=== PATIENT | male | born 1940 | race Hispanic/Latino ===

== ENCOUNTER 2018-02-26 14:45 | Inpatient (IN) | payer MEDICARE, OTHER ==
[2018-02-26 14:45] VITALS: BMI 40.3
--- NOTE | 2018-02-26 15:57 | RAD ---
Date of service: 02/26/2018 HISTORY: Shortness of breath COMPARISON: 07/27/2016 FINDINGS: Tracheostomy tube remains in place. LUNGS: The lungs are well inflated and clear. PLEURA: No significant pleural effusion identified, no pneumothorax apparent. CARDIOVASCULAR: Normal. OSSEOUS STRUCTURES: No significant abnormalities. VISUALIZED UPPER ABDOMEN: Normal. OTHER FINDINGS: None. IMPRESSION: No active pulmonary disease.
[2018-02-26] MEDS ORDERED: Albuterol-Ipratrop 3 mg / 0.5 (3 ml) UD IH STA (16:24)
--- NOTE | 2018-02-26 16:28 | ED PDOC ---
Arrival/HPI - General Chief Complaint: GI Problem Time Seen by Provider: 02/26/18 15:00 Historian: Patient - History of Present Illness Narrative History of Present Illness (Text): 02/26/18 16:25 Patient is a 77 yo male past medical history of vegetative state with history of PEG tube, diaz catheter, tracheostomy, presents to the Emergency Department after family noted that the patient had bloody stool 3-4 times since yesterday. Patient reportedly has had no history of vomiting or fevers. No expression of pain. No change in chronic shortness of breath. Time/Duration: Prior to Arrival Symptom Onset: Gradual Past Medical History - Infectious Disease Hx of Infectious Diseases: None - Cardiac Hx Cardiac Disorders: Yes Hx Hypertension: Yes Hx Peripheral Edema: Yes (ble +1) - Pulmonary Hx Respiratory Disorders: Yes (tracheostomy) Hx Chronic Obstructive Pulmonary Disease (COPD): Yes Hx Pneumonia: (family denies) - Neurological Hx Neurological Disorder: Yes 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)) Hx Seizures: Yes Other/Comment: non verbal/vegetative state x 4 yrs, complete paralysis - HEENT Hx HEENT Disorder: No - Renal Hx Renal Disorder: No - Endocrine/Metabolic Hx Endocrine Disorders: No Hx Diabetes Mellitus Type 2: (family denies dm) - Hematological/Oncological Hx Blood Disorders: No - Integumentary Hx Dermatological Disorder: No Other/Comment: multiple eccymotic and skin discolorations both arms - Musculoskeletal/Rheumatological Hx Falls: No - Gastrointestinal Hx Gastrointestinal Disorders: Yes (hx c dif 12/01/15) Hx Gastroesophageal Reflux: Yes HX Swallowing Problems: Yes (dysphagia has g tube) Other/Comment: chronic constipation - Genitourinary/Gynecological Hx Urinary Tract Infection: Yes - Psychiatric Hx Psychophysiologic Disorder: No Hx Substance Use: No - Surgical History Hx Coronary Stent: Yes Other/Comment: trach/peg tube - Anesthesia Hx Anesthesia Reactions: Yes Hx Malignant Hyperthermia: No - Suicidal Assessment Feels Threatened In Home Enviroment: No Family/Social History Family/Social History: Unknown Family HX Smoking Status: Never Smoked Hx Alcohol Use: No Hx Substance Use: No Hx Substance Use Treatment: No Allergies/Home Meds Allergies/Adverse Reactions: Allergies heparin Allergy (Intermediate, Verified 07/24/16 13:30) LOW PLTS shellfish derived Allergy (Verified 07/24/16 13:30) SWELLING Home Medications: Home Meds Medication Instructions Recorded Confirmed levETIRAcetam Solution [Keppra] 1,500 mg PEG BID 11/23/11 02/26/18 Ipratropium 0.02% [Atrovent] 0.5 mg IH Q4H 12/15/15 02/26/18 Lacosamide [Vimpat] 100 mg PEG BID 12/15/15 02/26/18 amLODIPine [Norvasc] 2.5 mg PEG DAILY 12/15/15 02/26/18 Lactobacillus Acidophilus 1 gm MC DAILY 02/16/16 02/26/18 [Acidophilus Lactobacillus] acetaZOLAMIDE [Diamox 250 mg Tab] 250 mg PEG DAILY 07/24/16 02/26/18 Enoxaparin [Lovenox] 40 mg SQ DAILY 07/25/16 02/26/18 Furosemide [Lasix] 40 mg PEG DAILY 07/25/16 02/26/18 Amino Acids/Protein Hydrolys 30 ml PO BID 02/26/18 02/26/18 [Prostat 15 g packet] B12 Unk Dose 02/26/18 Budesonide [Pulmicort Respules] 0.5 mg NEB BID 02/26/18 02/26/18 Cholecalciferol (Vitamin D3) 0 ml PEG 02/26/18 [Vitamin D3] Clonazepam [Klonopin] 0 mg PEG DAILY 02/26/18 02/27/18 Levalbuterol [Xopenex] 1.25 mg IH DAILY 02/26/18 02/27/18 Potassium Unk Dose 02/26/18 Review of Systems - Review of Systems Systems not reviewed;Unavailable: Altered Mental Status Constitutional: Fatigue. absent: Fevers Respiratory: SOB. absent: Cough Cardiovascular: Edema. absent: Chest Pain Gastrointestinal: Constipation, Hematochezia. absent: Abdominal Pain, Vomiting , Hematemesis Skin: absent: Rash Neurological: Other (chronic vegetatative state) Physical Exam Vital Signs Reviewed: Yes Vital Signs Temp Pulse Resp BP Pulse Ox 02/26/18 20:10 98 F 96 H 20 150/52 L 02/26/18 19:29 98.3 F 97 H 19 154/78 H 02/26/18 19:14 98.4 F 99 H 18 140/67 02/26/18 18:54 98.3 F 99 H 17 144/83 91 L 02/26/18 17:36 100 H 20 96 02/26/18 15:23 98.4 F 96 H 19 147/57 L 100 Temperature: Afebrile Respiratory Rate: Tachypneic Mental Status: Positive for: other (vegetative state chronic) - Systems Exam Head: Present: Atraumatic Mouth: Present: Dry Pharnyx: No: ERYTHEMA Nose (Internal): Present: Normal Inspection Neck: Present: Normal Range of Motion, Other (tracheostomy site is clean dry and intact). No: Meningeal Signs Respiratory/Chest: Present: Wheezes, Tachypneic. No: Respiratory Distress Cardiovascular: Present: Murmurs, Tachycardic Abdomen: Present: Distention, Feeding Tubes, Other (ecchymosis to right lower abdominal wall, no pulsatile masses). No: Tenderness Rectal: Present: Gross Blood. No: Melena Genitourinary Male: Present: Other (diza catheter, no hematuria or lesions) Lower Extremity: Present: Edema Neurological: Present: Other (patient with vegetative state) Skin: Present: Pale Psychiatric: No: Alert, Normal Insight, Normal Concentration Medical Decision Making ED Course and Treatment: 02/26/18 18:54 Patient on initial evaluation is accompanied by and then son at bedside. Exam and history obtained with present. On exam the patient is aphasic, at his baseline. He has some tracheal secretions which improved after suctioning. He initially has mild wheezing noted, felt to be at his baseline initially. Rectal exam reveals melena and heme positive stool. Hgb is low, and was compared to provided outpatient labs provided by from where Hgb was 9.5. Acute drop noted from three days ago. He is not tachycardic or hypotensive with serial exams. IV fluids ordered. Blood transfusion ordered for active bleeding, anemia. WBC elevated. Patient with PEG tube that is clean. Diaz catheter present. Initial lactate unremarkable although will order ct abdomen as patient with leukocytosis, prior history of sepsis. During ER stay patient noted to be progressively more tachypneic. ON re-exam he has worsening bronchospasm. Duonebs and iv steroids ordered. ABG ordered. Director Of Retention consulted for gi bleed, respiratory distress. ABG results reviewed with Dr. Gillette, will accept patient to ICU and follow patient's respiratory status. IV antibiotics ordered. Treatment plan reviewed extensively with patient and family, will admit to ICU. - Critical Care Critical Care Minutes: 45 minutes - Lab Interpretations Microbiology Results: Microbiology Results 02/26/18 16:00 Blood Blood Culture - Preliminary NO GROWTH AFTER 48 HOURS 02/26/18 15:30 Blood Blood Culture - Preliminary NO GROWTH AFTER 48 HOURS 02/26/18 17:20 Urine Urine Culture - Preliminary Gram Negative Saad Lab Results: 02/26/18 15:30 02/26/18 15:30 Lab Results 02/26/18 17:40: POC Glucose (mg/dL) 188 H 02/26/18 17:20: Urine Color Yellow, Urine Appearance Slight-cloudy, Urine pH 6.0 , Ur Specific [place] 1.015, Urine Protein 30 H, Urine Glucose (UA) Negative, Urine Ketones Negative, Urine Blood Large H, Urine Nitrate Negative, Urine Bilirubin Negative, Urine Urobilinogen 0.2, Ur Leukocyte Esterase Large H, Urine RBC 5 - 10, Urine WBC 5 - 10, Ur Epithelial Cells None, Urine Bacteria Mod 02/26/18 16:00: Blood Type A POSITIVE, Antibody Screen Negative, ITZEL, Poly Interpret Positive H, Crossmatch See Detail, BBK History Checked Patient has bt 02/26/18 15:30: NT-Pro-B Natriuret Pep 444 02/26/18 15:30: Sodium 140, Potassium 4.8, Chloride 93 L, Carbon Dioxide 37 H, Anion Gap 15, BUN 67 H, Creatinine 2.2 H, Est GFR ( Amer) 35, Est GFR ( Non-Af Amer) 29, Random Glucose 202 H, Calcium 7.9 L, Total Bilirubin 0.8, AST 35, ALT 24, Alkaline Phosphatase 83, Lactate Dehydrogenase 391, Total Creatine Kinase 35, Troponin I < 0.01, Total Protein 6.6, Albumin 3.5, Globulin 3.0, Albumin/Globulin Ratio 1.2 02/26/18 15:30: PT 13.3 H, INR 1.16, APTT 29.7 02/26/18 15:30: WBC 15.5 H D, RBC 2.24 L, Hgb 7.2 L, Hct 23.3 L, MCV 104.0, MCH 32.1, MCHC 30.9 L, RDW 16.3 H, Plt Count 207, MPV 11.9 H, Gran % 85.1 H, Lymph % (Auto) 6.8 L, [place] % (Auto) 7.9 H, Eos % (Auto) 0.1 L, Baso % (Auto) 0.1, Gran # 13.20 H, Lymph # (Auto) 1.1 L, [place] # (Auto) 1.2 H, Eos # (Auto) 0.0, Baso # (Auto) 0.02 - RAD Interpretation Radiology Orders: 02/26/18 15:17 CHEST PORTABLE [RAD] Stat 02/26/18 17:01 ABD & PELVIS W/O PO OR IV CONT [CT] Stat Power Generating Plant Operator: Radiologist - EKG Interpretation EKG Interpretation (Text): 02/26/18 19:00 EKG at 15:05 normal sinus rhythm with right bundle branch block, left anterior fascicular block Interpreted by ED Physician: Yes Type: 12 lead EKG - Medication Orders Current Medication Orders: Acetaminophen (Tylenol 650mg/20.3ml Solution Ud) 650 mg PO Q6H PRN PRN Reason: Pain, moderate (4-7) Acetylcysteine (Acetylcysteine 20%) 4 ml IH BIDRESP GANGA Last Admin: 03/01/18 08:21 Dose: 4 ml Albuterol/Ipratropium (Duoneb 3 Mg/0.5 Mg (3 Ml) Ud) 3 ml IH [id number] GANGA Last Admin: 03/01/18 08:21 Dose: 3 ml Albuterol/Ipratropium (Duoneb 3 Mg/0.5 Mg (3 Ml) Ud) 3 ml IH Q2H PRN PRN Reason: Shortness of Breath Amlodipine Besylate (Norvasc) 2.5 mg PEG DAILY [facility] Budesonide (Pulmicort Respules) 0.5 mg IH [id number] [facility] Last Admin: 03/01/18 08:22 Dose: 0.5 mg Doxycycline Hyclate (Doryx) 100 mg PO Q12 GANGA PRN Reason: Protocol Last Admin: 02/28/18 21:42 Dose: 100 mg Meropenem 500 mg/ Sodium (Chloride) 50 mls @ 100 mls/hr IVPB Q12 GANGA PRN Reason: Protocol Stop: 03/05/18 22:01 Last Admin: 02/28/18 22:43 Dose: 100 mls/hr eMAR Start Stop Document 02/28/18 22:43 LOPEMAR (Rec: 02/28/18 22:44 LOPEMAR [id number]) Intravenous Solution Start Date 02/28/18 Start Time 22:43 End Date 02/28/18 End time 23:20 Total Infusion Time 37 Sodium Chloride (Sodium Chloride 0.9%) 1,000 mls @ 5 mls/hr IV .Q24H GANGA Last Admin: 03/01/18 04:03 Dose: 5 mls/hr eMAR Start Stop Document 03/01/18 04:03 LOPEMAR (Rec: 03/01/18 04:04 LOPEMAR [id number]) Intravenous Solution Start Date 03/01/18 Start Time 04:03 End Date 03/02/18 End time 04:00 Total Infusion Time 1437 Methylprednisolone (Solu-Medrol) 40 mg IVP Q8 GANGA Last Admin: 03/01/18 05:44 Dose: 40 mg IVP Administration Document 03/01/18 05:44 LOPEMAR (Rec: 03/01/18 05:44 LOPEMAR [id number]) Charges for Administration # of IVP Administrations 1 Pantoprazole Sodium (Protonix Inj) 40 mg IVP DAILY GANGA Last Admin: 02/28/18 09:36 Dose: 40 mg IVP Administration Document 02/28/18 09:36 MDU (Rec: 02/28/18 09:36 MDU [id number]) Charges for Administration # of IVP Administrations 1 Polysaccharide Iron Complex (Ferrex-150) 150 mg PO 1200 GANGA Discontinued Medications Acetaminophen (Tylenol 650mg/20.3ml Solution Ud) 650 mg PO STAT STA Stop: 03/01/18 03:35 Last Admin: 03/01/18 03:57 Dose: 650 mg MAR Pain/Vitals Document 03/01/18 03:57 LOPEMAR (Rec: 03/01/18 04:00 LOPEMAR [id number]) Pain Reassessment Is This A Pain ReAssessment? Yes Sleep Is patient sleeping during reassessment? No Presence of Pain Presence of Pain Yes Pain Scale Used Pain Scale Used [place] Location Description Cramping Intensity 6 Scale Used Stefano Site Observation pt grimace shaking arms Vitals Temperature (97.6 F-99.6 F) 98.4 F Temperature Source Axillary Albuterol Sulfate (Albuterol 0.5% Inhal Abi (2.5 Mg/0.5 Ml) Ud) 2.5 mg IH [id number] GANGA Albuterol Sulfate (Albuterol 0.5% Inhal Abi (2.5 Mg/0.5 Ml) Ud) 1.25 mg IH BID GANGA Last Admin: 02/27/18 04:00 Dose: 1.25 mg Albuterol Sulfate (Albuterol 0.5% Inhal Abi (2.5 Mg/0.5 Ml) Ud) 1.25 mg IH BIDRESP GANGA Last Admin: 02/27/18 07:00 Dose: 1.25 mg Albuterol/Ipratropium (Duoneb 3 Mg/0.5 Mg (3 Ml) Ud) 3 ml IH STAT STA Stop: 02/26/18 16:25 Last Admin: 02/26/18 16:34 Dose: 3 ml Albuterol/Ipratropium (Duoneb 3 Mg/0.5 Mg (3 Ml) Ud) 3 ml IH Q15M GANGA Stop: 02/26/18 18:31 Last Admin: 02/26/18 18:45 Dose: 3 ml Albuterol/Ipratropium (Duoneb 3 Mg/0.5 Mg (3 Ml) Ud) 3 ml IH STAT ONE Stop: 02/26/18 22:52 Last Admin: 02/26/18 23:37 Dose: 3 ml Albuterol/Ipratropium (Duoneb 3 Mg/0.5 Mg (3 Ml) Ud) 3 ml IH STAT STA Stop: 02/27/18 03:06 Last Admin: 02/27/18 03:10 Dose: 3 ml Albuterol/Ipratropium (Duoneb 3 Mg/0.5 Mg (3 Ml) Ud) 3 ml IH [id number] GANGA Amlodipine Besylate (Norvasc) 2.5 mg PEG DAILY GANGA Amlodipine Besylate (Norvasc) 5 mg PEG STAT STA Stop: 03/01/18 03:52 Last Admin: 03/01/18 04:01 Dose: 5 mg MAR Pulse and Blood Pressure Document 03/01/18 04:01 LOPEMAR (Rec: 03/01/18 04:02 LOPEMAR [id number]) Pulse Pulse Rate (60-90) 77 Blood Pressure Blood Pressure (100/60-150/90) 180/94 Darbepoetin Lucius (Aranesp) 100 mcg SC ONCE ONE Stop: 02/27/18 18:52 Last Admin: 02/27/18 19:50 Dose: 100 mcg Subcutaneous Administrations Document 02/27/18 19:50 ID (Rec: 02/27/18 20:37 ID [id number]) Injection Site MAR Injection Site Left Deltoid Charges for Administration # of Subcutaneous Administrations 1 Furosemide (Lasix) 40 mg IVP ONCE ONE Stop: 02/27/18 17:52 Last Admin: 02/27/18 18:01 Dose: 40 mg MAR Blood Pressure Document 02/27/18 18:01 MMA (Rec: 02/27/18 18:02 MMA [facility] [id number] Blood Pressure Blood Pressure (100/60-150/90) 152/69 IVP Administration Document 02/27/18 18:01 MMA (Rec: 02/27/18 18:02 MMA [id number]) Charges for Administration # of IVP Administrations 1 Sodium Chloride (Sodium Chloride 0.9%) 500 mls @ 1,000 mls/hr IV .Q30M STA Stop: 02/26/18 18:37 Last Admin: 02/26/18 18:27 Dose: 1,000 mls/hr eMAR Start Stop Document 02/26/18 18:27 MR (Rec: 02/26/18 18:27 MR [id number]) Intravenous Solution Start Date 02/26/18 Start Time 18:27 End Date 02/26/18 End time 18:57 Total Infusion Time 30 Vancomycin HCl (Vancomycin 1gm) 1 gm in 250 mls @ 167 mls/hr IVPB STAT STA PRN Reason: Protocol Stop: 02/26/18 19:39 Last Admin: 02/26/18 20:35 Dose: 167 mls/hr eMAR Start Stop Document 02/26/18 20:35 RD (Rec: 02/26/18 20:35 RD [id number]) Intravenous Solution Start Date 02/26/18 Start Time 20:35 End Date 02/26/18 End time 22:05 Total Infusion Time 90 Meropenem 500 mg/ Sodium (Chloride) 50 mls @ 100 mls/hr IVPB ONCE ONE PRN Reason: Protocol Stop: 02/26/18 18:48 Last Admin: 02/26/18 18:31 Dose: 100 mls/hr eMAR Start Stop Document 02/26/18 18:31 MR (Rec: 02/26/18 18:32 MR [id number]) Intravenous Solution Start Date 02/26/18 Start Time 18:32 End Date 02/26/18 End time 19:02 Total Infusion Time 30 Sodium Chloride (Sodium Chloride 0.9%) 1,000 mls @ 100 mls/hr IV .Q10H GANGA Stop: 02/27/18 03:30 Last Admin: 02/26/18 20:35 Dose: 100 mls/hr eMAR Start Stop Document 02/26/18 20:35 RD (Rec: 02/26/18 20:36 RD [id number]) Intravenous Solution Start Date 02/26/18 Start Time 20:36 Iron Sucrose 200 mg/ Sodium (Chloride) 110 mls @ 110 mls/hr IVPB ONCE ONE Stop: 02/27/18 22:34 Last Admin: 02/27/18 22:26 Dose: 110 mls/hr eMAR Start Stop Document 02/27/18 22:26 ID (Rec: 02/27/18 22:28 ID [id number]) Intravenous Solution Start Date 02/27/18 Start Time 22:26 End Date 02/27/18 Methylprednisolone (Solu-Medrol) 125 mg IVP STAT STA Stop: 02/26/18 17:50 Last Admin: 02/26/18 18:05 Dose: 125 mg IVP Administration Document 02/26/18 18:05 MR (Rec: 02/26/18 18:05 MR [id number]) Charges for Administration # of IVP Administrations 1 Pantoprazole Sodium (Protonix Inj) 40 mg IVP ONCE STA Stop: 02/26/18 17:02 Last Admin: 02/26/18 17:21 Dose: 40 mg IVP Administration Document 02/26/18 17:21 MR (Rec: 02/26/18 17:21 MR [id number]) Charges for Administration # of IVP Administrations 1 Sodium Polystyrene Sulfonate (Kayexalate Susp) 30 gm PO ONCE ONE Stop: 02/27/18 00:59 Last Admin: 02/27/18 01:16 Dose: 30 gm Disposition/Present on Arrival - Present on Arrival Any Indicators Present on Arrival: Yes History of DVT/PE: No History of Uncontrolled Diabetes: No Urinary Catheter: Yes History of Decub. Ulcer: No History Surgical Site Infection Following: None - Disposition Have Diagnosis and Disposition been Completed?: Yes Diagnosis: GI bleed, Anemia, Leukocytosis, COPD exacerbation, Respiratory distress, Renal insufficiency Disposition: HOSPITALIZED Disposition Time: 18:00 Patient Plan: Admission, ICU Patient Problems: Current Active Problems Problem Status Onset Anemia Acute COPD exacerbation Acute GI bleed Acute Leukocytosis Acute Renal insufficiency Acute Respiratory distress Acute Condition: CRITICAL
[2018-02-26 16:33] LABS: BASO # 0.02 K/mm3 (0.0-2.0); BASO % 0.1 % (0.0-3.0); EOS % 0.1 % (1.5-5.0); GRAN # 13.2 (1.4-6.5); GRAN % 85.1 % (50.0-68.0); HEMOGLOBIN 7.2 g/dL (14.0-18.0); LYMPH # 1.1 (1.2-3.4); LYMPH % 6.8 % (22.0-35.0); MEAN CORPUSCULAR HEMOGLOBIN 32.1 pg (25.0-35.0); MEAN CORPUSCULAR HGB CONC 30.9 g/dl (31.0-37.0); MEAN PLATELET VOLUME 11.9 fl (7.0-11.0); MONO # 1.2 (0.1-0.6); MONO % 7.9 % (1.0-6.0); RBC 2.24 10^6/uL (3.5-6.1); RED CELL DISTRIBUTION WIDTH 16.3 % (11.5-14.5); WHITE BLOOD COUNT 15.5 10^3/ul (4.5-11.0)
[2018-02-26 16:40] LABS: INR 1.16; PARTIAL THROMBOPLASTIN TIME 29.7 Seconds (25.1-36.5); PROTHROMBIN TIME 13.3 SECONDS (9.4-12.5)
[2018-02-26 16:49] LABS: ALB/GLOB RATIO 1.2 (1.1-1.8); ALBUMIN 3.5 g/dL (3.0-4.8); ALT/SGPT 24 U/L (7-56); AST/SGOT 35 U/L (17-59); BLOOD UREA NITROGEN 67 mg/dL (7-21); CALCIUM 7.9 mg/dL (8.4-10.5); GFR AFRICAN-AMERICAN 35; GFR NON-AFRICAN AMERICAN 29
[2018-02-26 17:00] LABS: TROPONIN I < 0.01 ng/mL
[2018-02-26 17:46] LABS: URINE BILIRUBIN NEGATIVE (NEGATIVE); URINE BLOOD LARGE (NEGATIVE); URINE GLUCOSE (UA) NEGATIVE (NEGATIVE); URINE LEUKOCYTE ESTERASE LARGE Leu/uL (NEGATIVE); URINE PROTEIN 30 mg/dL (<30 mg/dL); URINE UROBILINOGEN 0.2 E.U./dL (<1 E.U./dL)
[2018-02-26 17:48] LABS: URINE APPEARANCE SLIGHT-CLOUDY (CLEAR); URINE COLOR YELLOW (YELLOW)
[2018-02-26 17:58] LABS: URINE BACTERIA MOD (NEG)
[2018-02-26] MEDS: Albuterol-Ipratrop 3 mg / 0.5 (3 ml) UD IH SCH ×3 (18:05→18:45)
[2018-02-26] MEDS ORDERED: Sodium Chloride 0.9% 500 ML IV STA (18:08)
[2018-02-26] MEDS ORDERED: Vancomycin 1gm in NS 250ml 1 GM/250 ML BAG IVPB STA (18:10)
[2018-02-26] MEDS ORDERED: Cefepime 1gm in NS 100ml 1 GM/100 ML BAG IVPB STA (18:11)
[2018-02-26] MEDS ORDERED: Meropenem 500 MG in Sodium Chloride 0.9% 50 ML IVPB ONE (18:19)
[2018-02-26 18:35] LABS: VENOUS BLOOD GAS PO2 266 mm/Hg (30-55); VENOUS BLOOD PH 7.38 (7.32-7.43)
--- NOTE | 2018-02-26 18:38 | CP.PCM.CON ---
History of Present Illness - History of Present Illness History of Present Illness: Julien Coulter, PGY-1 ICU Consult Note This is a 77 year old male with PMH of COPD presenting to the ED for SOB that began two weeks ago but acutely worsened today. Per patient's family, patient has also had blood in the stool for the last couple of days. Limited ROS due to nonverbal patient. Currently has tracheostomy, diaz catheter and PEG tube. Mechanical Engineering Technician is Dr. Flor. PMH: per chart review, COPD, CVA, anoxic encephalopathy, ventilator dependent, chronic anemia, history of blood transfusion, GE reflux, CAD PSH: as per above SH: former smoker Med: as per MAR All: heparin, shellfish Past Patient History - Infectious Disease Hx of Infectious Diseases: None - Past Social History Smoking Status: Never Smoked - CARDIAC Hx Cardiac Disorders: Yes Hx Hypertension: Yes Hx Peripheral Edema: Yes (ble +1) - PULMONARY Hx Respiratory Disorders: Yes (tracheostomy) Hx Chronic Obstructive Pulmonary Disease (COPD): Yes Hx Pneumonia: (family denies) - NEUROLOGICAL Hx Neurological Disorder: Yes 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)) Hx Seizures: Yes Other/Comment: non verbal/vegetative state x 4 yrs, complete paralysis - HEENT Hx HEENT Problems: No - RENAL Hx Chronic Kidney Disease: No - ENDOCRINE/METABOLIC Hx Endocrine Disorders: No Hx Diabetes Mellitus Type 2: (family denies dm) - HEMATOLOGICAL/ONCOLOGICAL Hx Blood Disorders: No - INTEGUMENTARY Hx Dermatological Problems: No Other/Comment: multiple eccymotic and skin discolorations both arms - MUSCULOSKELETAL/RHEUMATOLOGICAL Hx Falls: No - GASTROINTESTINAL Hx Gastrointestinal Disorders: Yes (hx c dif 12/01/15) Hx Gastroesophageal Reflux: Yes HX Swallowing Problems: Yes (dysphagia has g tube) Other/Comment: chronic constipation - GENITOURINARY/GYNECOLOGICAL Hx Urinary Tract Infection: Yes - PSYCHIATRIC Hx Psychophysiologic Disorder: No Hx Substance Use: No - SURGICAL HISTORY Hx Coronary Stent: Yes Other/Comment: trach/peg tube - ANESTHESIA Hx Anesthesia Reactions: Yes Hx Malignant Hyperthermia: No Meds Allergies/Adverse Reactions: Allergies Allergy/AdvReac Type Severity Reaction Status Date / Time heparin Allergy Intermediate LOW PLTS Verified 07/24/16 13:30 shellfish derived Allergy SWELLING Verified 07/24/16 13:30 - Medications Medications: Current Medications Sodium Chloride (Sodium Chloride 0.9%) 500 mls @ 1,000 mls/hr IV .Q30M STA Stop: 02/26/18 18:37 Last Admin: 02/26/18 18:27 Dose: 1,000 mls/hr Vancomycin HCl (Vancomycin 1gm) 1 gm in 250 mls @ 167 mls/hr IVPB STAT STA PRN Reason: Protocol Stop: 02/26/18 19:39 Meropenem 500 mg/ Sodium (Chloride) 50 mls @ 100 mls/hr IVPB ONCE ONE PRN Reason: Protocol Stop: 02/26/18 18:48 Last Admin: 02/26/18 18:31 Dose: 100 mls/hr Physical Exam - Constitutional Appears: In Acute Distress, Chronically Ill - Head Exam Head Exam: ATRAUMATIC, NORMOCEPHALIC - Eye Exam Eye Exam: Normal appearance, PERRL Additional comments: Does not track with eyes, eyes gazing upward - Respiratory Exam Respiratory Exam: Accessory Muscle Use, Decreased Breath Sounds Additional comments: expiratory wheezes are heard B/L. Tacheostomy present with no gross bleeding or puss - Cardiovascular Exam Cardiovascular Exam: Tachycardia. absent: RRR - GI/Abdominal Exam GI & Abdominal Exam: Diminished Bowel Sounds. absent: Guarding Additional comments: PEG tube present with no gross blood or pus - Extremities Exam Extremities exam: Positive for: joint swelling - Neurological Exam Neurological exam: Altered - Psychiatric Exam Psychiatric exam: Anxious - Skin Skin Exam: Diaphoretic Results - Vital Signs Recent Vital Signs: Last Vital Signs Temp 98.4 F 02/26/18 15:23 Pulse 100 H 02/26/18 17:36 Resp 20 02/26/18 17:36 BP 147/57 L 02/26/18 15:23 Pulse Ox 96 02/26/18 17:36 - Labs Result Diagrams: 02/26/18 15:30 02/26/18 15:30 Labs: Laboratory Results - last 24 hr 02/26/18 02/26/18 02/26/18 15:30 15:30 15:30 WBC 15.5 H D RBC 2.24 L Hgb 7.2 L Hct 23.3 L MCV 104.0 MCH 32.1 MCHC 30.9 L RDW 16.3 H Plt Count 207 MPV 11.9 H Gran % 85.1 H Lymph % (Auto) 6.8 L [place] % (Auto) 7.9 H Eos % (Auto) 0.1 L Baso % (Auto) 0.1 Gran # 13.20 H Lymph # (Auto) 1.1 L [place] # (Auto) 1.2 H Eos # (Auto) 0.0 Baso # (Auto) 0.02 PT 13.3 H INR 1.16 APTT 29.7 Sodium 140 Potassium 4.8 Chloride 93 L Carbon Dioxide 37 H Anion Gap 15 BUN 67 H Creatinine 2.2 H Est GFR ( Amer) 35 Est GFR (Non-Af Amer) 29 POC Glucose (mg/dL) Random Glucose 202 H Calcium 7.9 L Total Bilirubin 0.8 AST 35 ALT 24 Alkaline Phosphatase 83 Lactate Dehydrogenase 391 Total Creatine Kinase 35 Troponin I < 0.01 Total Protein 6.6 Albumin 3.5 Globulin 3.0 Albumin/Globulin Ratio 1.2 Urine Color Urine Appearance Urine pH Ur Specific [place] Urine Protein Urine Glucose (UA) Urine Ketones Urine Blood Urine Nitrate Urine Bilirubin Urine Urobilinogen Ur Leukocyte Esterase Urine RBC Urine WBC Ur Epithelial Cells Urine Bacteria Blood Type Antibody Screen ITZEL, Poly Interpret Crossmatch BBK History Checked 02/26/18 02/26/18 02/26/18 16:00 17:20 17:40 WBC RBC Hgb Hct MCV MCH MCHC RDW Plt Count MPV Gran % Lymph % (Auto) [place] % (Auto) Eos % (Auto) Baso % (Auto) Gran # Lymph # (Auto) [place] # (Auto) Eos # (Auto) Baso # (Auto) PT INR APTT Sodium Potassium Chloride Carbon Dioxide Anion Gap BUN Creatinine Est GFR ( Amer) Est GFR (Non-Af Amer) POC Glucose (mg/dL) 188 H Random Glucose Calcium Total Bilirubin AST ALT Alkaline Phosphatase Lactate Dehydrogenase Total Creatine Kinase Troponin I Total Protein Albumin Globulin Albumin/Globulin Ratio Urine Color Yellow Urine Appearance Slight-cloudy Urine pH 6.0 Ur Specific [place] 1.015 Urine Protein 30 H Urine Glucose (UA) Negative Urine Ketones Negative Urine Blood Large H Urine Nitrate Negative Urine Bilirubin Negative Urine Urobilinogen 0.2 Ur Leukocyte Esterase Large H Urine RBC 5 - 10 Urine WBC 5 - 10 Ur Epithelial Cells None Urine Bacteria Mod Blood Type A POSITIVE Antibody Screen Negative ITZEL, Poly Interpret Positive H Crossmatch See Detail BBK History Checked Patient has bt Assessment & Plan - Assessment and Plan (Free Text) Assessment: Assessment: This is a 77 year old male with PMH of COPD, currenttracheostomy, PEG tube and diaz presenting to the ICU for management of respiratory distress due to possible COPD exacerbation vs sepsis vs GI bleed. ABG and CT abdomen are pending. Will give blood transfusion and IV antibiotics. IV fluids administered. Of note, patient's is refusing medical advice for need of ventilator. Risks are explained to including respiratory compromise, respiratory arrest and cardiac arrest but is resisting medical advice for need of ventilator. Plan: -duonebs, solumedrol 40mg q8 -supplementary O2 as needed -IV fluids -blood transfusion -ABG pending -CT abd pending -IV merrum and vanc -urine culture pending -blood culture pending -pulmonary consult
[2018-02-26 18:46] LABS: ARTERIAL BLOOD GAS HCO3 38.2 mmol/L (21-28); ARTERIAL BLOOD GAS O2 SAT 99.7 % (95-98); ARTERIAL BLOOD GAS PCO2 66 mm/Hg (35-45); ARTERIAL BLOOD GAS PH 7.37 (7.35-7.45); ARTERIAL BLOOD GAS TCO2 40.2 mmol.L (22-28)
[2018-02-26] MEDS ORDERED: Sodium Chloride 0.9% 1,000 ML IV SCH (19:15)
[2018-02-26] MEDS: MethylPREDNISolone 40 mg Vial IVP SCH ×2 (20:36→22:00)
--- NOTE | 2018-02-26 21:45 | CARD ---
APPROVED REPORT Date of service: 02/26/2018 EKG Measurement Heart [id number] <Conclusion> Normal sinus rhythm Right bundle branch block Left anterior fascicular block Bifascicular block Septal infarct, age undetermined Abnormal ECG
[2018-02-26] MEDS: Meropenem 500 MG in Sodium Chloride 0.9% 50 ML IVPB SCH (22:00)
[2018-02-26] MEDS ORDERED: Albuterol-Ipratrop 3 mg / 0.5 (3 ml) UD IH ONE (22:51)
[2018-02-27 00:26] LABS: GRAN # 13.05 (1.4-6.5); GRAN % 92.9 % (50.0-68.0); HEMOGLOBIN 8.1 g/dL (14.0-18.0); LYMPH # 0.9 (1.2-3.4); MEAN CELL VOLUME 101.2 fl (80.0-105.0); MEAN CORPUSCULAR HEMOGLOBIN 31.8 pg (25.0-35.0); MEAN CORPUSCULAR HGB CONC 31.4 g/dl (31.0-37.0); MEAN PLATELET VOLUME 11.3 fl (7.0-11.0); MONO # 0.2 (0.1-0.6); MONO % 1.1 % (1.0-6.0); PLATELET COUNT 166 10^3/uL (120.0-450.0); RBC 2.55 10^6/uL (3.5-6.1); RED CELL DISTRIBUTION WIDTH 18.5 % (11.5-14.5); WHITE BLOOD COUNT 14.1 10^3/ul (4.5-11.0)
[2018-02-27 00:27] LABS: ALB/GLOB RATIO 1.2 (1.1-1.8); ALBUMIN 3.6 g/dL (3.0-4.8); CALCIUM 7.7 mg/dL (8.4-10.5)
[2018-02-27] MEDS ORDERED: Sod Polystyrene Sulf 15 gm/60 ml Susp PO ONE (00:58)
[2018-02-27 01:52] LABS: BAND 4 % (0-2); LYMPHOCYTE 2 % (22.0-35.0); MONOCYTE 1 % (1.0-6.0); NEUTROPHIL 93 % (50.0-70.0)
[2018-02-27 01:53] LABS: ANISOCYTOSIS 1+; PLATELET ESTIMATE NORMAL (NORMAL)
[2018-02-27] MEDS: MethylPREDNISolone 40 mg Vial IVP SCH ×4 (02:19→22:15)
[2018-02-27] MEDS ORDERED: Albuterol-Ipratrop 3 mg / 0.5 (3 ml) UD IH STA (03:05)
[2018-02-27] MEDS ORDERED: Albuterol-Ipratrop 3 mg / 0.5 (3 ml) UD ONE (03:10)
[2018-02-27] MEDS: Budesonide 0.5 mg/2 ml Inhal Susp UD IH SCH ×3 (03:24→17:15)
[2018-02-27] MEDS: Sodium Chloride 0.9% 1,000 ML IV SCH (03:30)
[2018-02-27] MEDS ORDERED: Albuterol 0.5% Inhal Sol (2.5 mg/0.5 ml) UD IH SCH ×3 (03:36→08:00)
[2018-02-27] MEDS: Acetylcysteine 20% Inhal Soln (4ml) IH SCH ×3 (04:00→17:11)
[2018-02-27 05:44] LABS: GRAN # 10.44 (1.4-6.5); GRAN % 88.1 % (50.0-68.0); HEMOGLOBIN 7.9 g/dL (14.0-18.0); LYMPH # 1.1 (1.2-3.4); LYMPH % 8.9 % (22.0-35.0); MEAN CELL VOLUME 100.8 fl (80.0-105.0); MEAN CORPUSCULAR HGB CONC 31.7 g/dl (31.0-37.0); MEAN PLATELET VOLUME 10.4 fl (7.0-11.0); MONO # 0.4 (0.1-0.6); RBC 2.47 10^6/uL (3.5-6.1); RED CELL DISTRIBUTION WIDTH 18.9 % (11.5-14.5); WHITE BLOOD COUNT 11.9 10^3/ul (4.5-11.0)
[2018-02-27 05:46] LABS: INR 1.12; PROTHROMBIN TIME 12.9 SECONDS (9.4-12.5)
[2018-02-27 05:49] LABS: PARTIAL THROMBOPLASTIN TIME 28.6 Seconds (25.1-36.5)
[2018-02-27 05:54] LABS: ALB/GLOB RATIO 1.2 (1.1-1.8); ALBUMIN 3.6 g/dL (3.0-4.8); CALCIUM 8.2 mg/dL (8.4-10.5)
[2018-02-27 06:12] LABS: ARTERIAL BLOOD GAS HCO3 32.7 mmol/L (21-28); ARTERIAL BLOOD GAS HEMOGLOBIN 7.4 g/dL (11.7-17.4); ARTERIAL BLOOD GAS O2 CAPACITY 10.2 mL/dl (16-24); ARTERIAL BLOOD GAS O2 SAT 98.4 % (95-98); ARTERIAL BLOOD GAS PCO2 62 mm/Hg (35-45); ARTERIAL BLOOD GAS PH 7.33 (7.35-7.45); ARTERIAL BLOOD GAS TCO2 34.6 mmol.L (22-28)
[2018-02-27] MEDS: Meropenem 500 MG in Sodium Chloride 0.9% 50 ML IVPB SCH ×2 (09:01→22:15)
[2018-02-27 10:14] LABS: IRON 53 ug/dL (45-180)
[2018-02-27 10:23] LABS: % IRON SATURATION 17 % (20-55); TOTAL IRON BINDING CAPACITY 306 ug/dL (261-462)
--- NOTE | 2018-02-27 10:30 | CT ---
Date of service: 02/26/2018 PROCEDURE: CT Abdomen and Pelvis without intravenous contrast HISTORY: gi bleeding, abdominal distension COMPARISON: None. TECHNIQUE: Technique. Contrast dose: Radiation dose: Total exam DLP = mGy-cm. This CT exam was performed using one or more of the following dose reduction techniques: Automated exposure control, adjustment of the mA and/or kV according to patient size, and/or use of iterative reconstruction technique. FINDINGS: LOWER THORAX: Bibasilar discoid atelectasis LIVER: Unremarkable. No gross lesion or ductal dilatation. GALLBLADDER AND BILE DUCTS: Cholelithiasis. PANCREAS: Unremarkable. No gross lesion or ductal dilatation. SPLEEN: Unremarkable. ADRENALS: Unremarkable. No mass. KIDNEYS AND URETERS: Bilateral renal cysts. VASCULATURE: Unremarkable. No aortic aneurysm. BOWEL: Percutaneous gastrostomy tube in place. Mild eventration of the anterior abdominal wall without hernia. APPENDIX: Unremarkable. Normal appendix. PERITONEUM: Unremarkable. No free fluid. No free air. LYMPH NODES: Unremarkable. No enlarged lymph nodes. BLADDER: Cardona catheter in bladder. REPRODUCTIVE: Unremarkable. BONES: No acute fracture. OTHER FINDINGS: Bilateral fat containing inguinal hernias. . IMPRESSION: No acute pathology. Please see discussion above.
--- NOTE | 2018-02-27 11:27 | CP.CCUPN ---
<StephanieJulien ojeda - Last Filed: 02/27/18 11:21> CCU Subjective - Physician Review Events Since Last Encounter (Free Text): Julien Coulter, PGY-1 ICU Progress Note Patient seen and examined this morning. No acute events overnight. Patient is nonverbal and does not track with eyes. Per , patient is breathing much better overnight and is doing better overall. Patient to get endoscopy done today by GI. 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 CCU Objective - Vital Signs / Intake & Output Vital Signs (Last 4 hours): Vital Signs Temp Pulse Resp Pulse Ox 02/27/18 10:00 99.5 F 88 24 96 02/27/18 09:00 99.7 F H 89 27 H 96 02/27/18 08:10 99.5 F 91 H 28 H 92 L 02/27/18 08:00 99.5 F 90 32 H 94 L 02/27/18 07:50 99.5 F 90 35 H 93 L 02/27/18 07:40 99.7 F H 89 20 92 L 02/27/18 07:30 99.7 F H 90 35 H 92 L Intake and Output (Last 8hrs): Intake & Output 02/26/18 02/27/18 02/27/18 22:59 06:59 14:59 Intake Total 425 668 Output Total 600 Balance 425 68 Intake: IV 668 NS 418 vancomycin 250 Blood Product 325 Red Blood Cells Cpd As1 325 Lr Unit [id number] Other 100 Red Blood Cells Cpd As1 100 Lr Unit [id number] Output: Urine 600 Urethral (Diaz) 600 Other: Voiding Method Indwelling Catheter # Bowel Movements 0 - Physical Exam Physical Exam Limitations: Positive for: Other (patient non tracking with gaze upwards, does not respond to verbal commands. Neurological deficits since CVA 6 years ago) Head: Positive for: Atraumatic Mouth: Positive for: Dry Pharnyx: Negative for: ERYTHEMA Nose (Internal): Positive for: Normal Inspection Neck: Positive for: Normal Range of Motion, Other (tracheostomy site is clean dry and intact). Negative for: Meningeal Signs Respiratory/Chest: Positive for: Clear to Auscultation. Negative for: Respiratory Distress Cardiovascular: Positive for: Murmurs, Tachycardic Abdomen: Positive for: Distention, Feeding Tubes, Other (ecchymosis to right lower abdominal wall, no pulsatile masses. PEG tube in place with no bleeding or pus). Negative for: Tenderness Rectal: Positive for: Gross Blood. Negative for: Melena Genitourinary Male: Positive for: Other (diaz catheter, no hematuria or lesions ) Lower Extremity: Positive for: Edema Neurological: Positive for: Other (patient with vegetative state) Skin: Positive for: Pale Psychiatric: Negative for: Alert, Normal Insight, Normal Concentration - Medications Active Medications: Active Medications Generic Name Dose Route Start Last Admin Trade Name Freq PRN Reason Stop Dose Admin Acetylcysteine 4 ml 02/27/18 04:00 02/27/18 07:01 Acetylcysteine 20% IH 4 ml BIDRESP GANGA Administration Albuterol Sulfate 1.25 mg 02/27/18 03:55 02/27/18 07:00 Albuterol 0.5% Inhal Abi (2.5 Mg/0.5 Ml) Ud IH 1.25 mg BIDRESP GANGA Administration Budesonide 0.5 mg 02/27/18 03:00 02/27/18 07:00 Pulmicort Respules IH 0.5 mg [id number] GANGA Administration Doxycycline Hyclate 100 mg 02/27/18 10:00 Doryx PO Q12 GANGA Protocol Meropenem 500 mg/ Sodium 50 mls @ 100 mls/hr 02/26/18 22:00 02/27/18 09:01 Chloride IVPB 03/05/18 22:01 100 mls/hr Q12 GANGA Administration Protocol Sodium Chloride 1,000 mls @ 5 mls/hr 02/27/18 03:30 02/27/18 03:30 Sodium Chloride 0.9% IV 5 mls/hr .Q24H GANGA Administration Methylprednisolone 40 mg 02/26/18 19:58 02/27/18 09:00 Solu-Medrol IVP 40 mg Q8 GANGA Administration Pantoprazole Sodium 40 mg 02/27/18 10:00 02/27/18 09:00 Protonix Inj IVP 40 mg DAILY GANGA Administration - Patient Studies Lab Studies: Lab Studies 02/27/18 02/27/18 02/27/18 Range/Units 09:45 06:00 05:30 WBC (4.5-11.0) 10^3/ul RBC (3.5-6.1) 10^6/uL Hgb (14.0-18.0) g/dL Hct (42.0-52.0) % MCV (80.0-105.0) fl MCH (25.0-35.0) pg MCHC (31.0-37.0) g/dl RDW (11.5-14.5) % Plt Count (120.0-450.0) 10^3/uL MPV (7.0-11.0) fl Gran % (50.0-68.0) % Lymph % (Auto) (22.0-35.0) % [place] % (Auto) (1.0-6.0) % Eos % (Auto) (1.5-5.0) % Baso % (Auto) (0.0-3.0) % Gran # (1.4-6.5) Lymph # (Auto) (1.2-3.4) [place] # (Auto) (0.1-0.6) Eos # (Auto) (0.0-0.7) Baso # (Auto) (0.0-2.0) K/mm3 Neutrophils % (Manual) (50.0-70.0) % Band Neutrophils % (0-2) % Lymphocytes % (Manual) (22.0-35.0) % Monocytes % (Manual) (1.0-6.0) % Platelet Evaluation (NORMAL) Basophilic Stippling Anisocytosis (manual) Retic Count 7.51 H (0.5-1.5) % PT (9.4-12.5) SECONDS INR APTT (25.1-36.5) Seconds pCO2 62 H (35-45) mm/Hg pO2 81.0 (30-55) mm/Hg HCO3 32.7 H (21-28) mmol/L ABG pH 7.33 L (7.35-7.45) ABG Total CO2 34.6 H (22-28) mmol.L ABG O2 Saturation 98.4 H (95-98) % ABG O2 Content 10.0 L (15-23) ML/dl ABG Base Excess 5.9 H (-2.0-3.0) mmol/L ABG Hemoglobin 7.4 L (11.7-17.4) g/dL ABG Carboxyhemoglobin 2.9 H (0.5-1.5) % POC ABG HHb (Measured) 1.5 (0-5) % ABG Methemoglobin 1.3 (0.0-3.0) % ABG O2 Capacity 10.2 L (16-24) mL/dl ABG Potassium (3.6-5.2) mmol/L VBG pH (7.32-7.43) VBG pCO2 (40-60) VBG HCO3 (21-28) mmol/l VBG Total CO2 (22-28) mmol.L VBG O2 Sat (Calc) (40-65) % VBG Base Excess (0.0-2.0) mmol/L VBG Potassium (3.6-5.2) mmol/L Hgb O2 Saturation 94.3 L (95.0-98.0) % Sodium (132-148) mmol/L Chloride (98-107) mmol/L Glucose (75-110) mg/dl Lactate (0.7-2.1) mmol/L FiO2 30.0 % Potassium (3.6-5.0) mmol/L Carbon Dioxide (21-33) mmol/L Anion Gap (10-20) BUN (7-21) mg/dL Creatinine (0.8-1.5) mg/dl Est GFR ( Amer) Est GFR (Non-Af Amer) Random Glucose (70-110) mg/dL Calcium (8.4-10.5) mg/dL Iron 53 (45-180) ug/dL TIBC 306 (261-462) ug/dL % Saturation 17 L (20-55) % Total Bilirubin (0.2-1.3) mg/dL AST (17-59) U/L ALT (7-56) U/L Alkaline Phosphatase (38-126) U/L Total Protein (5.8-8.3) g/dL Albumin (3.0-4.8) g/dL Globulin gm/dL Albumin/Globulin Ratio (1.1-1.8) Arterial Blood Potassium (3.6-5.2) mmol/L Venous Blood Potassium (3.6-5.2) mmol/L 02/27/18 02/27/18 02/27/18 Range/Units 05:20 05:20 05:20 WBC 11.9 H (4.5-11.0) 10^3/ul RBC 2.47 L (3.5-6.1) 10^6/uL Hgb 7.9 L (14.0-18.0) g/dL Hct 24.9 L (42.0-52.0) % MCV 100.8 (80.0-105.0) fl MCH 32.0 (25.0-35.0) pg MCHC 31.7 (31.0-37.0) g/dl RDW 18.9 H (11.5-14.5) % Plt Count 169 (120.0-450.0) 10^3/uL MPV 10.4 (7.0-11.0) fl Gran % 88.1 H (50.0-68.0) % Lymph % (Auto) 8.9 L (22.0-35.0) % [place] % (Auto) 3.0 (1.0-6.0) % Eos % (Auto) 0.0 L (1.5-5.0) % Baso % (Auto) 0.0 (0.0-3.0) % Gran # 10.44 H (1.4-6.5) Lymph # (Auto) 1.1 L (1.2-3.4) [place] # (Auto) 0.4 (0.1-0.6) Eos # (Auto) 0.0 (0.0-0.7) Baso # (Auto) 0.00 (0.0-2.0) K/mm3 Neutrophils % (Manual) (50.0-70.0) % Band Neutrophils % (0-2) % Lymphocytes % (Manual) (22.0-35.0) % Monocytes % (Manual) (1.0-6.0) % Platelet Evaluation (NORMAL) Basophilic Stippling Anisocytosis (manual) Retic Count (0.5-1.5) % PT 12.9 H (9.4-12.5) SECONDS INR 1.12 APTT 28.6 (25.1-36.5) Seconds pCO2 (35-45) mm/Hg pO2 (30-55) mm/Hg HCO3 (21-28) mmol/L ABG pH (7.35-7.45) ABG Total CO2 (22-28) mmol.L ABG O2 Saturation (95-98) % ABG O2 Content (15-23) ML/dl ABG Base Excess (-2.0-3.0) mmol/L ABG Hemoglobin (11.7-17.4) g/dL ABG Carboxyhemoglobin (0.5-1.5) % POC ABG HHb (Measured) (0-5) % ABG Methemoglobin (0.0-3.0) % ABG O2 Capacity (16-24) mL/dl ABG Potassium (3.6-5.2) mmol/L VBG pH (7.32-7.43) VBG pCO2 (40-60) VBG HCO3 (21-28) mmol/l VBG Total CO2 (22-28) mmol.L VBG O2 Sat (Calc) (40-65) % VBG Base Excess (0.0-2.0) mmol/L VBG Potassium (3.6-5.2) mmol/L Hgb O2 Saturation (95.0-98.0) % Sodium 143 (132-148) mmol/L Chloride 97 L (98-107) mmol/L Glucose (75-110) mg/dl Lactate (0.7-2.1) mmol/L FiO2 % Potassium 5.0 (3.6-5.0) mmol/L Carbon Dioxide 33 (21-33) mmol/L Anion Gap 18 (10-20) BUN 72 H (7-21) mg/dL Creatinine 2.5 H (0.8-1.5) mg/dl Est GFR ( Amer) 31 Est GFR (Non-Af Amer) 25 Random Glucose 184 H (70-110) mg/dL Calcium 8.2 L (8.4-10.5) mg/dL Iron (45-180) ug/dL TIBC (261-462) ug/dL % Saturation (20-55) % Total Bilirubin 0.6 (0.2-1.3) mg/dL AST 33 (17-59) U/L ALT 21 (7-56) U/L Alkaline Phosphatase 83 (38-126) U/L Total Protein 6.5 (5.8-8.3) g/dL Albumin 3.6 (3.0-4.8) g/dL Globulin 2.9 gm/dL Albumin/Globulin Ratio 1.2 (1.1-1.8) Arterial Blood Potassium (3.6-5.2) mmol/L Venous Blood Potassium (3.6-5.2) mmol/L 02/26/18 02/26/18 02/26/18 Range/Units 23:59 23:59 18:35 WBC 14.1 H (4.5-11.0) 10^3/ul RBC 2.55 L (3.5-6.1) 10^6/uL Hgb 8.1 L (14.0-18.0) g/dL Hct 25.8 L (42.0-52.0) % MCV 101.2 (80.0-105.0) fl MCH 31.8 (25.0-35.0) pg MCHC 31.4 (31.0-37.0) g/dl RDW 18.5 H (11.5-14.5) % Plt Count 166 (120.0-450.0) 10^3/uL MPV 11.3 H (7.0-11.0) fl Gran % 92.9 H (50.0-68.0) % Lymph % (Auto) 6.0 L (22.0-35.0) % [place] % (Auto) 1.1 (1.0-6.0) % Eos % (Auto) 0.0 L (1.5-5.0) % Baso % (Auto) 0.0 (0.0-3.0) % Gran # 13.05 H (1.4-6.5) Lymph # (Auto) 0.9 L (1.2-3.4) [place] # (Auto) 0.2 (0.1-0.6) Eos # (Auto) 0.0 (0.0-0.7) Baso # (Auto) 0.00 (0.0-2.0) K/mm3 Neutrophils % (Manual) 93 H (50.0-70.0) % Band Neutrophils % 4 H (0-2) % Lymphocytes % (Manual) 2 L (22.0-35.0) % Monocytes % (Manual) 1 (1.0-6.0) % Platelet Evaluation Normal (NORMAL) Basophilic Stippling Slight Anisocytosis (manual) 1+ Retic Count (0.5-1.5) % PT (9.4-12.5) SECONDS INR APTT (25.1-36.5) Seconds pCO2 66 H (35-45) mm/Hg pO2 176.0 H (30-55) mm/Hg HCO3 38.2 H (21-28) mmol/L ABG pH 7.37 (7.35-7.45) ABG Total CO2 40.2 H (22-28) mmol.L ABG O2 Saturation 99.7 H (95-98) % ABG O2 Content (15-23) ML/dl ABG Base Excess 10.2 H (-2.0-3.0) mmol/L ABG Hemoglobin (11.7-17.4) g/dL ABG Carboxyhemoglobin (0.5-1.5) % POC ABG HHb (Measured) (0-5) % ABG Methemoglobin (0.0-3.0) % ABG O2 Capacity (16-24) mL/dl ABG Potassium 4.9 (3.6-5.2) mmol/L VBG pH (7.32-7.43) VBG pCO2 (40-60) VBG HCO3 (21-28) mmol/l VBG Total CO2 (22-28) mmol.L VBG O2 Sat (Calc) (40-65) % VBG Base Excess (0.0-2.0) mmol/L VBG Potassium (3.6-5.2) mmol/L Hgb O2 Saturation (95.0-98.0) % Sodium 141 138.0 (132-148) mmol/L Chloride 95 L 102.0 (98-107) mmol/L Glucose 173 H (75-110) mg/dl Lactate 1.7 (0.7-2.1) mmol/L FiO2 40.0 % Potassium 5.5 H (3.6-5.0) mmol/L Carbon Dioxide 34 H (21-33) mmol/L Anion Gap 18 (10-20) BUN 70 H (7-21) mg/dL Creatinine 2.3 H (0.8-1.5) mg/dl Est GFR ( Amer) 34 Est GFR (Non-Af Amer) 28 Random Glucose 192 H (70-110) mg/dL Calcium 7.7 L (8.4-10.5) mg/dL Iron (45-180) ug/dL TIBC (261-462) ug/dL % Saturation (20-55) % Total Bilirubin 0.7 (0.2-1.3) mg/dL AST 28 (17-59) U/L ALT 20 (7-56) U/L Alkaline Phosphatase 82 (38-126) U/L Total Protein 6.7 (5.8-8.3) g/dL Albumin 3.6 (3.0-4.8) g/dL Globulin 3.0 gm/dL Albumin/Globulin Ratio 1.2 (1.1-1.8) Arterial Blood Potassium 4.9 (3.6-5.2) mmol/L Venous Blood Potassium (3.6-5.2) mmol/L 02/26/18 Range/Units 18:28 WBC (4.5-11.0) 10^3/ul RBC (3.5-6.1) 10^6/uL Hgb (14.0-18.0) g/dL Hct (42.0-52.0) % MCV (80.0-105.0) fl MCH (25.0-35.0) pg MCHC (31.0-37.0) g/dl RDW (11.5-14.5) % Plt Count (120.0-450.0) 10^3/uL MPV (7.0-11.0) fl Gran % (50.0-68.0) % Lymph % (Auto) (22.0-35.0) % [place] % (Auto) (1.0-6.0) % Eos % (Auto) (1.5-5.0) % Baso % (Auto) (0.0-3.0) % Gran # (1.4-6.5) Lymph # (Auto) (1.2-3.4) [place] # (Auto) (0.1-0.6) Eos # (Auto) (0.0-0.7) Baso # (Auto) (0.0-2.0) K/mm3 Neutrophils % (Manual) (50.0-70.0) % Band Neutrophils % (0-2) % Lymphocytes % (Manual) (22.0-35.0) % Monocytes % (Manual) (1.0-6.0) % Platelet Evaluation (NORMAL) Basophilic Stippling Anisocytosis (manual) Retic Count (0.5-1.5) % PT (9.4-12.5) SECONDS INR APTT (25.1-36.5) Seconds pCO2 (35-45) mm/Hg pO2 266 H (30-55) mm/Hg HCO3 (21-28) mmol/L ABG pH (7.35-7.45) ABG Total CO2 (22-28) mmol.L ABG O2 Saturation (95-98) % ABG O2 Content (15-23) ML/dl ABG Base Excess (-2.0-3.0) mmol/L ABG Hemoglobin (11.7-17.4) g/dL ABG Carboxyhemoglobin (0.5-1.5) % POC ABG HHb (Measured) (0-5) % ABG Methemoglobin (0.0-3.0) % ABG O2 Capacity (16-24) mL/dl ABG Potassium (3.6-5.2) mmol/L VBG pH 7.38 (7.32-7.43) VBG pCO2 65.0 H (40-60) VBG HCO3 40.2 H (21-28) mmol/l VBG Total CO2 42.3 H (22-28) mmol.L VBG O2 Sat (Calc) 100.2 H (40-65) % VBG Base Excess 12.0 H (0.0-2.0) mmol/L VBG Potassium 5.1 (3.6-5.2) mmol/L Hgb O2 Saturation (95.0-98.0) % Sodium 137.0 (132-148) mmol/L Chloride 100.0 (98-107) mmol/L Glucose 179 H (75-110) mg/dl Lactate 1.9 (0.7-2.1) mmol/L FiO2 21.0 % Potassium (3.6-5.0) mmol/L Carbon Dioxide (21-33) mmol/L Anion Gap (10-20) BUN (7-21) mg/dL Creatinine (0.8-1.5) mg/dl Est GFR ( Amer) Est GFR (Non-Af Amer) Random Glucose (70-110) mg/dL Calcium (8.4-10.5) mg/dL Iron (45-180) ug/dL TIBC (261-462) ug/dL % Saturation (20-55) % Total Bilirubin (0.2-1.3) mg/dL AST (17-59) U/L ALT (7-56) U/L Alkaline Phosphatase (38-126) U/L Total Protein (5.8-8.3) g/dL Albumin (3.0-4.8) g/dL Globulin gm/dL Albumin/Globulin Ratio (1.1-1.8) Arterial Blood Potassium (3.6-5.2) mmol/L Venous Blood Potassium 5.1 (3.6-5.2) mmol/L Laboratory Results - last 24 hr 02/26/18 02/26/18 02/26/18 18:28 18:35 23:59 WBC 14.1 H RBC 2.55 L Hgb 8.1 L Hct 25.8 L MCV 101.2 MCH 31.8 MCHC 31.4 RDW 18.5 H Plt Count 166 MPV 11.3 H Gran % 92.9 H Lymph % (Auto) 6.0 L [place] % (Auto) 1.1 Eos % (Auto) 0.0 L Baso % (Auto) 0.0 Gran # 13.05 H Lymph # (Auto) 0.9 L [place] # (Auto) 0.2 Eos # (Auto) 0.0 Baso # (Auto) 0.00 Neutrophils % (Manual) 93 H Band Neutrophils % 4 H Lymphocytes % (Manual) 2 L Monocytes % (Manual) 1 Platelet Evaluation Normal Basophilic Stippling Slight Anisocytosis (manual) 1+ Retic Count PT INR APTT pCO2 66 H pO2 266 H 176.0 H HCO3 38.2 H ABG pH 7.37 ABG Total CO2 40.2 H ABG O2 Saturation 99.7 H ABG O2 Content ABG Base Excess 10.2 H ABG Hemoglobin ABG Carboxyhemoglobin POC ABG HHb (Measured) ABG Methemoglobin ABG O2 Capacity ABG Potassium 4.9 VBG pH 7.38 VBG pCO2 65.0 H VBG HCO3 40.2 H VBG Total CO2 42.3 H VBG O2 Sat (Calc) 100.2 H VBG Base Excess 12.0 H VBG Potassium 5.1 Hgb O2 Saturation Sodium 137.0 138.0 Chloride 100.0 102.0 Glucose 179 H 173 H Lactate 1.9 1.7 FiO2 21.0 40.0 Potassium Carbon Dioxide Anion Gap BUN Creatinine Est GFR ( Amer) Est GFR (Non-Af Amer) Random Glucose Calcium Iron TIBC % Saturation Total Bilirubin AST ALT Alkaline Phosphatase Total Protein Albumin Globulin Albumin/Globulin Ratio Arterial Blood Potassium 4.9 Venous Blood Potassium 5.1 02/26/18 02/27/18 02/27/18 23:59 05:20 05:20 WBC 11.9 H RBC 2.47 L Hgb 7.9 L Hct 24.9 L MCV 100.8 MCH 32.0 MCHC 31.7 RDW 18.9 H Plt Count 169 MPV 10.4 Gran % 88.1 H Lymph % (Auto) 8.9 L [place] % (Auto) 3.0 Eos % (Auto) 0.0 L Baso % (Auto) 0.0 Gran # 10.44 H Lymph # (Auto) 1.1 L [place] # (Auto) 0.4 Eos # (Auto) 0.0 Baso # (Auto) 0.00 Neutrophils % (Manual) Band Neutrophils % Lymphocytes % (Manual) Monocytes % (Manual) Platelet Evaluation Basophilic Stippling Anisocytosis (manual) Retic Count PT 12.9 H INR 1.12 APTT 28.6 pCO2 pO2 HCO3 ABG pH ABG Total CO2 ABG O2 Saturation ABG O2 Content ABG Base Excess ABG Hemoglobin ABG Carboxyhemoglobin POC ABG HHb (Measured) ABG Methemoglobin ABG O2 Capacity ABG Potassium VBG pH VBG pCO2 VBG HCO3 VBG Total CO2 VBG O2 Sat (Calc) VBG Base Excess VBG Potassium Hgb O2 Saturation Sodium 141 Chloride 95 L Glucose Lactate FiO2 Potassium 5.5 H Carbon Dioxide 34 H Anion Gap 18 BUN 70 H Creatinine 2.3 H Est GFR ( Amer) 34 Est GFR (Non-Af Amer) 28 Random Glucose 192 H Calcium 7.7 L Iron TIBC % Saturation Total Bilirubin 0.7 AST 28 ALT 20 Alkaline Phosphatase 82 Total Protein 6.7 Albumin 3.6 Globulin 3.0 Albumin/Globulin Ratio 1.2 Arterial Blood Potassium Venous Blood Potassium 02/27/18 02/27/18 02/27/18 05:20 05:30 06:00 WBC RBC Hgb Hct MCV MCH MCHC RDW Plt Count MPV Gran % Lymph % (Auto) [place] % (Auto) Eos % (Auto) Baso % (Auto) Gran # Lymph # (Auto) [place] # (Auto) Eos # (Auto) Baso # (Auto) Neutrophils % (Manual) Band Neutrophils % Lymphocytes % (Manual) Monocytes % (Manual) Platelet Evaluation Basophilic Stippling Anisocytosis (manual) Retic Count 7.51 H PT INR APTT pCO2 62 H pO2 81.0 HCO3 32.7 H ABG pH 7.33 L ABG Total CO2 34.6 H ABG O2 Saturation 98.4 H ABG O2 Content 10.0 L ABG Base Excess 5.9 H ABG Hemoglobin 7.4 L ABG Carboxyhemoglobin 2.9 H POC ABG HHb (Measured) 1.5 ABG Methemoglobin 1.3 ABG O2 Capacity 10.2 L ABG Potassium VBG pH VBG pCO2 VBG HCO3 VBG Total CO2 VBG O2 Sat (Calc) VBG Base Excess VBG Potassium Hgb O2 Saturation 94.3 L Sodium 143 Chloride 97 L Glucose Lactate FiO2 30.0 Potassium 5.0 Carbon Dioxide 33 Anion Gap 18 BUN 72 H Creatinine 2.5 H Est GFR ( Amer) 31 Est GFR (Non-Af Amer) 25 Random Glucose 184 H Calcium 8.2 L Iron TIBC % Saturation Total Bilirubin 0.6 AST 33 ALT 21 Alkaline Phosphatase 83 Total Protein 6.5 Albumin 3.6 Globulin 2.9 Albumin/Globulin Ratio 1.2 Arterial Blood Potassium Venous Blood Potassium 02/27/18 09:45 WBC RBC Hgb Hct MCV MCH MCHC RDW Plt Count MPV Gran % Lymph % (Auto) [place] % (Auto) Eos % (Auto) Baso % (Auto) Gran # Lymph # (Auto) [place] # (Auto) Eos # (Auto) Baso # (Auto) Neutrophils % (Manual) Band Neutrophils % Lymphocytes % (Manual) Monocytes % (Manual) Platelet Evaluation Basophilic Stippling Anisocytosis (manual) Retic Count PT INR APTT pCO2 pO2 HCO3 ABG pH ABG Total CO2 ABG O2 Saturation ABG O2 Content ABG Base Excess ABG Hemoglobin ABG Carboxyhemoglobin POC ABG HHb (Measured) ABG Methemoglobin ABG O2 Capacity ABG Potassium VBG pH VBG pCO2 VBG HCO3 VBG Total CO2 VBG O2 Sat (Calc) VBG Base Excess VBG Potassium Hgb O2 Saturation Sodium Chloride Glucose Lactate FiO2 Potassium Carbon Dioxide Anion Gap BUN Creatinine Est GFR ( Amer) Est GFR (Non-Af Amer) Random Glucose Calcium Iron 53 TIBC 306 % Saturation 17 L Total Bilirubin AST ALT Alkaline Phosphatase Total Protein Albumin Globulin Albumin/Globulin Ratio Arterial Blood Potassium Venous Blood Potassium Fingerstick Blood Sugar Results: 188 Critical Care Progress Note - Nutrition Nutrition: Nutrition Category Date Time Status NPO Diet [DIET] Diets 02/27/18 Breakfast Ordered Assessment/Plan - Assessment and Plan (Free Text) Assessment: This is a 77 year old male with PMH of COPD, 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 Patient's respiratory status is improved today. Hemoglobin improved after one unit transfused yesterday. Will monitor H/H q8. Patient to get endoscopy done today by GI for evaluation of bloody stools. Plan: Neuro: -maintain normothermia -patient has limited neurological function due to previous stroke Cardio: -maintain MAP>65 -will monitor vitals including HR and BP closely Lungs: -SaO2 >90% -supplementary O2 PRN -duonebs PRN, pulmicort, solumedrol q8 -CXR: no active disease -Pulm on consult, Dr. Flor -GI: -to get endoscopy today by GI for evaluation of bloody stools -NPO diet -GI prophylaxis with protonix -CT abd/pelvis: numerous stones in gallbladder, moderate fecal retention consistent with constipation -GI on consult, Dr Emanuel Renal: -maintain euvolemia -avoid nephrotoxic agents, hypochloremia -replace electrolytes as needed -BUN/Cr 72/2.5, will monitor ID: -WBC is 11.9 from 14 today, afebrile -on merrum day 2, vanc day 1 -U/A positive for leuk esterase -blood culture, urine culture, sputum culture, MRSA screen pending -ID on consult Heme: -Hg today is 7.9 from 7.2 , will monitor H/H q8 -given one unit transfusion yesterday Endo: -maintain euglycemia <Paul George - Last Filed: 02/27/18 12:02> CCU Objective - Vital Signs / Intake & Output Vital Signs (Last 4 hours): Vital Signs Temp Pulse Resp Pulse Ox 02/27/18 10:00 99.5 F 88 24 96 02/27/18 09:00 99.7 F H 89 27 H 96 02/27/18 08:10 99.5 F 91 H 28 H 92 L 02/27/18 08:00 99.5 F 90 32 H 94 L Intake and Output (Last 8hrs): Intake & Output 02/26/18 02/27/18 02/27/18 22:59 06:59 14:59 Intake Total 425 668 Output Total 600 Balance 425 68 Intake: IV 668 NS 418 vancomycin 250 Blood Product 325 Red Blood Cells Cpd As1 325 Lr Unit [id number] Other 100 Red Blood Cells Cpd As1 100 Lr Unit [id number] Output: Urine 600 Urethral (Diaz) 600 Other: Voiding Method Indwelling Catheter # Bowel Movements 0 - Medications Active Medications: Active Medications Generic Name Dose Route Start Last Admin Trade Name Freq PRN Reason Stop Dose Admin Acetylcysteine 4 ml 02/27/18 04:00 02/27/18 07:01 Acetylcysteine 20% IH 4 ml BIDRESP GANGA Administration Albuterol Sulfate 1.25 mg 02/27/18 03:55 02/27/18 07:00 Albuterol 0.5% Inhal Abi (2.5 Mg/0.5 Ml) Ud IH 1.25 mg BIDRESP GANGA Administration Budesonide 0.5 mg 02/27/18 03:00 02/27/18 07:00 Pulmicort Respules IH 0.5 mg [id number] GANGA Administration Doxycycline Hyclate 100 mg 02/27/18 10:00 Doryx PO Q12 GANGA Protocol Meropenem 500 mg/ Sodium 50 mls @ 100 mls/hr 02/26/18 22:00 02/27/18 09:01 Chloride IVPB 03/05/18 22:01 100 mls/hr Q12 GANGA Administration Protocol Sodium Chloride 1,000 mls @ 5 mls/hr 02/27/18 03:30 02/27/18 03:30 Sodium Chloride 0.9% IV 5 mls/hr .Q24H GANGA Administration Methylprednisolone 40 mg 02/26/18 19:58 02/27/18 09:00 Solu-Medrol IVP 40 mg Q8 GANGA Administration Pantoprazole Sodium 40 mg 02/27/18 10:00 02/27/18 09:00 Protonix Inj IVP 40 mg DAILY GANGA Administration - Patient Studies Lab Studies: Lab Studies 02/27/18 02/27/18 02/27/18 Range/Units 09:45 06:00 05:30 WBC (4.5-11.0) 10^3/ul RBC (3.5-6.1) 10^6/uL Hgb (14.0-18.0) g/dL Hct (42.0-52.0) % MCV (80.0-105.0) fl MCH (25.0-35.0) pg MCHC (31.0-37.0) g/dl RDW (11.5-14.5) % Plt Count (120.0-450.0) 10^3/uL MPV (7.0-11.0) fl Gran % (50.0-68.0) % Lymph % (Auto) (22.0-35.0) % [place] % (Auto) (1.0-6.0) % Eos % (Auto) (1.5-5.0) % Baso % (Auto) (0.0-3.0) % Gran # (1.4-6.5) Lymph # (Auto) (1.2-3.4) [place] # (Auto) (0.1-0.6) Eos # (Auto) (0.0-0.7) Baso # (Auto) (0.0-2.0) K/mm3 Neutrophils % (Manual) (50.0-70.0) % Band Neutrophils % (0-2) % Lymphocytes % (Manual) (22.0-35.0) % Monocytes % (Manual) (1.0-6.0) % Platelet Evaluation (NORMAL) Basophilic Stippling Anisocytosis (manual) Retic Count 7.51 H (0.5-1.5) % PT (9.4-12.5) SECONDS INR APTT (25.1-36.5) Seconds pCO2 62 H (35-45) mm/Hg pO2 81.0 (30-55) mm/Hg HCO3 32.7 H (21-28) mmol/L ABG pH 7.33 L (7.35-7.45) ABG Total CO2 34.6 H (22-28) mmol.L ABG O2 Saturation 98.4 H (95-98) % ABG O2 Content 10.0 L (15-23) ML/dl ABG Base Excess 5.9 H (-2.0-3.0) mmol/L ABG Hemoglobin 7.4 L (11.7-17.4) g/dL ABG Carboxyhemoglobin 2.9 H (0.5-1.5) % POC ABG HHb (Measured) 1.5 (0-5) % ABG Methemoglobin 1.3 (0.0-3.0) % ABG O2 Capacity 10.2 L (16-24) mL/dl ABG Potassium (3.6-5.2) mmol/L VBG pH (7.32-7.43) VBG pCO2 (40-60) VBG HCO3 (21-28) mmol/l VBG Total CO2 (22-28) mmol.L VBG O2 Sat (Calc) (40-65) % VBG Base Excess (0.0-2.0) mmol/L VBG Potassium (3.6-5.2) mmol/L Hgb O2 Saturation 94.3 L (95.0-98.0) % Sodium (132-148) mmol/L Chloride (98-107) mmol/L Glucose (75-110) mg/dl Lactate (0.7-2.1) mmol/L FiO2 30.0 % Potassium (3.6-5.0) mmol/L Carbon Dioxide (21-33) mmol/L Anion Gap (10-20) BUN (7-21) mg/dL Creatinine (0.8-1.5) mg/dl Est GFR ( Amer) Est GFR (Non-Af Amer) Random Glucose (70-110) mg/dL Calcium (8.4-10.5) mg/dL Iron 53 (45-180) ug/dL TIBC 306 (261-462) ug/dL % Saturation 17 L (20-55) % Total Bilirubin (0.2-1.3) mg/dL AST (17-59) U/L ALT (7-56) U/L Alkaline Phosphatase (38-126) U/L Total Protein (5.8-8.3) g/dL Albumin (3.0-4.8) g/dL Globulin gm/dL Albumin/Globulin Ratio (1.1-1.8) Arterial Blood Potassium (3.6-5.2) mmol/L Venous Blood Potassium (3.6-5.2) mmol/L 02/27/18 02/27/18 02/27/18 Range/Units 05:20 05:20 05:20 WBC 11.9 H (4.5-11.0) 10^3/ul RBC 2.47 L (3.5-6.1) 10^6/uL Hgb 7.9 L (14.0-18.0) g/dL Hct 24.9 L (42.0-52.0) % MCV 100.8 (80.0-105.0) fl MCH 32.0 (25.0-35.0) pg MCHC 31.7 (31.0-37.0) g/dl RDW 18.9 H (11.5-14.5) % Plt Count 169 (120.0-450.0) 10^3/uL MPV 10.4 (7.0-11.0) fl Gran % 88.1 H (50.0-68.0) % Lymph % (Auto) 8.9 L (22.0-35.0) % [place] % (Auto) 3.0 (1.0-6.0) % Eos % (Auto) 0.0 L (1.5-5.0) % Baso % (Auto) 0.0 (0.0-3.0) % Gran # 10.44 H (1.4-6.5) Lymph # (Auto) 1.1 L (1.2-3.4) [place] # (Auto) 0.4 (0.1-0.6) Eos # (Auto) 0.0 (0.0-0.7) Baso # (Auto) 0.00 (0.0-2.0) K/mm3 Neutrophils % (Manual) (50.0-70.0) % Band Neutrophils % (0-2) % Lymphocytes % (Manual) (22.0-35.0) % Monocytes % (Manual) (1.0-6.0) % Platelet Evaluation (NORMAL) Basophilic Stippling Anisocytosis (manual) Retic Count (0.5-1.5) % PT 12.9 H (9.4-12.5) SECONDS INR 1.12 APTT 28.6 (25.1-36.5) Seconds pCO2 (35-45) mm/Hg pO2 (30-55) mm/Hg HCO3 (21-28) mmol/L ABG pH (7.35-7.45) ABG Total CO2 (22-28) mmol.L ABG O2 Saturation (95-98) % ABG O2 Content (15-23) ML/dl ABG Base Excess (-2.0-3.0) mmol/L ABG Hemoglobin (11.7-17.4) g/dL ABG Carboxyhemoglobin (0.5-1.5) % POC ABG HHb (Measured) (0-5) % ABG Methemoglobin (0.0-3.0) % ABG O2 Capacity (16-24) mL/dl ABG Potassium (3.6-5.2) mmol/L VBG pH (7.32-7.43) VBG pCO2 (40-60) VBG HCO3 (21-28) mmol/l VBG Total CO2 (22-28) mmol.L VBG O2 Sat (Calc) (40-65) % VBG Base Excess (0.0-2.0) mmol/L VBG Potassium (3.6-5.2) mmol/L Hgb O2 Saturation (95.0-98.0) % Sodium 143 (132-148) mmol/L Chloride 97 L (98-107) mmol/L Glucose (75-110) mg/dl Lactate (0.7-2.1) mmol/L FiO2 % Potassium 5.0 (3.6-5.0) mmol/L Carbon Dioxide 33 (21-33) mmol/L Anion Gap 18 (10-20) BUN 72 H (7-21) mg/dL Creatinine 2.5 H (0.8-1.5) mg/dl Est GFR ( Amer) 31 Est GFR (Non-Af Amer) 25 Random Glucose 184 H (70-110) mg/dL Calcium 8.2 L (8.4-10.5) mg/dL Iron (45-180) ug/dL TIBC (261-462) ug/dL % Saturation (20-55) % Total Bilirubin 0.6 (0.2-1.3) mg/dL AST 33 (17-59) U/L ALT 21 (7-56) U/L Alkaline Phosphatase 83 (38-126) U/L Total Protein 6.5 (5.8-8.3) g/dL Albumin 3.6 (3.0-4.8) g/dL Globulin 2.9 gm/dL Albumin/Globulin Ratio 1.2 (1.1-1.8) Arterial Blood Potassium (3.6-5.2) mmol/L Venous Blood Potassium (3.6-5.2) mmol/L 02/26/18 02/26/18 02/26/18 Range/Units 23:59 23:59 18:35 WBC 14.1 H (4.5-11.0) 10^3/ul RBC 2.55 L (3.5-6.1) 10^6/uL Hgb 8.1 L (14.0-18.0) g/dL Hct 25.8 L (42.0-52.0) % MCV 101.2 (80.0-105.0) fl MCH 31.8 (25.0-35.0) pg MCHC 31.4 (31.0-37.0) g/dl RDW 18.5 H (11.5-14.5) % Plt Count 166 (120.0-450.0) 10^3/uL MPV 11.3 H (7.0-11.0) fl Gran % 92.9 H (50.0-68.0) % Lymph % (Auto) 6.0 L (22.0-35.0) % [place] % (Auto) 1.1 (1.0-6.0) % Eos % (Auto) 0.0 L (1.5-5.0) % Baso % (Auto) 0.0 (0.0-3.0) % Gran # 13.05 H (1.4-6.5) Lymph # (Auto) 0.9 L (1.2-3.4) [place] # (Auto) 0.2 (0.1-0.6) Eos # (Auto) 0.0 (0.0-0.7) Baso # (Auto) 0.00 (0.0-2.0) K/mm3 Neutrophils % (Manual) 93 H (50.0-70.0) % Band Neutrophils % 4 H (0-2) % Lymphocytes % (Manual) 2 L (22.0-35.0) % Monocytes % (Manual) 1 (1.0-6.0) % Platelet Evaluation Normal (NORMAL) Basophilic Stippling Slight Anisocytosis (manual) 1+ Retic Count (0.5-1.5) % PT (9.4-12.5) SECONDS INR APTT (25.1-36.5) Seconds pCO2 66 H (35-45) mm/Hg pO2 176.0 H (30-55) mm/Hg HCO3 38.2 H (21-28) mmol/L ABG pH 7.37 (7.35-7.45) ABG Total CO2 40.2 H (22-28) mmol.L ABG O2 Saturation 99.7 H (95-98) % ABG O2 Content (15-23) ML/dl ABG Base Excess 10.2 H (-2.0-3.0) mmol/L ABG Hemoglobin (11.7-17.4) g/dL ABG Carboxyhemoglobin (0.5-1.5) % POC ABG HHb (Measured) (0-5) % ABG Methemoglobin (0.0-3.0) % ABG O2 Capacity (16-24) mL/dl ABG Potassium 4.9 (3.6-5.2) mmol/L VBG pH (7.32-7.43) VBG pCO2 (40-60) VBG HCO3 (21-28) mmol/l VBG Total CO2 (22-28) mmol.L VBG O2 Sat (Calc) (40-65) % VBG Base Excess (0.0-2.0) mmol/L VBG Potassium (3.6-5.2) mmol/L Hgb O2 Saturation (95.0-98.0) % Sodium 141 138.0 (132-148) mmol/L Chloride 95 L 102.0 (98-107) mmol/L Glucose 173 H (75-110) mg/dl Lactate 1.7 (0.7-2.1) mmol/L FiO2 40.0 % Potassium 5.5 H (3.6-5.0) mmol/L Carbon Dioxide 34 H (21-33) mmol/L Anion Gap 18 (10-20) BUN 70 H (7-21) mg/dL Creatinine 2.3 H (0.8-1.5) mg/dl Est GFR ( Amer) 34 Est GFR (Non-Af Amer) 28 Random Glucose 192 H (70-110) mg/dL Calcium 7.7 L (8.4-10.5) mg/dL Iron (45-180) ug/dL TIBC (261-462) ug/dL % Saturation (20-55) % Total Bilirubin 0.7 (0.2-1.3) mg/dL AST 28 (17-59) U/L ALT 20 (7-56) U/L Alkaline Phosphatase 82 (38-126) U/L Total Protein 6.7 (5.8-8.3) g/dL Albumin 3.6 (3.0-4.8) g/dL Globulin 3.0 gm/dL Albumin/Globulin Ratio 1.2 (1.1-1.8) Arterial Blood Potassium 4.9 (3.6-5.2) mmol/L Venous Blood Potassium (3.6-5.2) mmol/L 02/26/18 Range/Units 18:28 WBC (4.5-11.0) 10^3/ul RBC (3.5-6.1) 10^6/uL Hgb (14.0-18.0) g/dL Hct (42.0-52.0) % MCV (80.0-105.0) fl MCH (25.0-35.0) pg MCHC (31.0-37.0) g/dl RDW (11.5-14.5) % Plt Count (120.0-450.0) 10^3/uL MPV (7.0-11.0) fl Gran % (50.0-68.0) % Lymph % (Auto) (22.0-35.0) % [place] % (Auto) (1.0-6.0) % Eos % (Auto) (1.5-5.0) % Baso % (Auto) (0.0-3.0) % Gran # (1.4-6.5) Lymph # (Auto) (1.2-3.4) [place] # (Auto) (0.1-0.6) Eos # (Auto) (0.0-0.7) Baso # (Auto) (0.0-2.0) K/mm3 Neutrophils % (Manual) (50.0-70.0) % Band Neutrophils % (0-2) % Lymphocytes % (Manual) (22.0-35.0) % Monocytes % (Manual) (1.0-6.0) % Platelet Evaluation (NORMAL) Basophilic Stippling Anisocytosis (manual) Retic Count (0.5-1.5) % PT (9.4-12.5) SECONDS INR APTT (25.1-36.5) Seconds pCO2 (35-45) mm/Hg pO2 266 H (30-55) mm/Hg HCO3 (21-28) mmol/L ABG pH (7.35-7.45) ABG Total CO2 (22-28) mmol.L ABG O2 Saturation (95-98) % ABG O2 Content (15-23) ML/dl ABG Base Excess (-2.0-3.0) mmol/L ABG Hemoglobin (11.7-17.4) g/dL ABG Carboxyhemoglobin (0.5-1.5) % POC ABG HHb (Measured) (0-5) % ABG Methemoglobin (0.0-3.0) % ABG O2 Capacity (16-24) mL/dl ABG Potassium (3.6-5.2) mmol/L VBG pH 7.38 (7.32-7.43) VBG pCO2 65.0 H (40-60) VBG HCO3 40.2 H (21-28) mmol/l VBG Total CO2 42.3 H (22-28) mmol.L VBG O2 Sat (Calc) 100.2 H (40-65) % VBG Base Excess 12.0 H (0.0-2.0) mmol/L VBG Potassium 5.1 (3.6-5.2) mmol/L Hgb O2 Saturation (95.0-98.0) % Sodium 137.0 (132-148) mmol/L Chloride 100.0 (98-107) mmol/L Glucose 179 H (75-110) mg/dl Lactate 1.9 (0.7-2.1) mmol/L FiO2 21.0 % Potassium (3.6-5.0) mmol/L Carbon Dioxide (21-33) mmol/L Anion Gap (10-20) BUN (7-21) mg/dL Creatinine (0.8-1.5) mg/dl Est GFR ( Amer) Est GFR (Non-Af Amer) Random Glucose (70-110) mg/dL Calcium (8.4-10.5) mg/dL Iron (45-180) ug/dL TIBC (261-462) ug/dL % Saturation (20-55) % Total Bilirubin (0.2-1.3) mg/dL AST (17-59) U/L ALT (7-56) U/L Alkaline Phosphatase (38-126) U/L Total Protein (5.8-8.3) g/dL Albumin (3.0-4.8) g/dL Globulin gm/dL Albumin/Globulin Ratio (1.1-1.8) Arterial Blood Potassium (3.6-5.2) mmol/L Venous Blood Potassium 5.1 (3.6-5.2) mmol/L Laboratory Results - last 24 hr 02/26/18 02/26/18 02/26/18 18:28 18:35 23:59 WBC 14.1 H RBC 2.55 L Hgb 8.1 L Hct 25.8 L MCV 101.2 MCH 31.8 MCHC 31.4 RDW 18.5 H Plt Count 166 MPV 11.3 H Gran % 92.9 H Lymph % (Auto) 6.0 L [place] % (Auto) 1.1 Eos % (Auto) 0.0 L Baso % (Auto) 0.0 Gran # 13.05 H Lymph # (Auto) 0.9 L [place] # (Auto) 0.2 Eos # (Auto) 0.0 Baso # (Auto) 0.00 Neutrophils % (Manual) 93 H Band Neutrophils % 4 H Lymphocytes % (Manual) 2 L Monocytes % (Manual) 1 Platelet Evaluation Normal Basophilic Stippling Slight Anisocytosis (manual) 1+ Retic Count PT INR APTT pCO2 66 H pO2 266 H 176.0 H HCO3 38.2 H ABG pH 7.37 ABG Total CO2 40.2 H ABG O2 Saturation 99.7 H ABG O2 Content ABG Base Excess 10.2 H ABG Hemoglobin ABG Carboxyhemoglobin POC ABG HHb (Measured) ABG Methemoglobin ABG O2 Capacity ABG Potassium 4.9 VBG pH 7.38 VBG pCO2 65.0 H VBG HCO3 40.2 H VBG Total CO2 42.3 H VBG O2 Sat (Calc) 100.2 H VBG Base Excess 12.0 H VBG Potassium 5.1 Hgb O2 Saturation Sodium 137.0 138.0 Chloride 100.0 102.0 Glucose 179 H 173 H Lactate 1.9 1.7 FiO2 21.0 40.0 Potassium Carbon Dioxide Anion Gap BUN Creatinine Est GFR ( Amer) Est GFR (Non-Af Amer) Random Glucose Calcium Iron TIBC % Saturation Total Bilirubin AST ALT Alkaline Phosphatase Total Protein Albumin Globulin Albumin/Globulin Ratio Arterial Blood Potassium 4.9 Venous Blood Potassium 5.1 02/26/18 02/27/18 02/27/18 23:59 05:20 05:20 WBC 11.9 H RBC 2.47 L Hgb 7.9 L Hct 24.9 L MCV 100.8 MCH 32.0 MCHC 31.7 RDW 18.9 H Plt Count 169 MPV 10.4 Gran % 88.1 H Lymph % (Auto) 8.9 L [place] % (Auto) 3.0 Eos % (Auto) 0.0 L Baso % (Auto) 0.0 Gran # 10.44 H Lymph # (Auto) 1.1 L [place] # (Auto) 0.4 Eos # (Auto) 0.0 Baso # (Auto) 0.00 Neutrophils % (Manual) Band Neutrophils % Lymphocytes % (Manual) Monocytes % (Manual) Platelet Evaluation Basophilic Stippling Anisocytosis (manual) Retic Count PT 12.9 H INR 1.12 APTT 28.6 pCO2 pO2 HCO3 ABG pH ABG Total CO2 ABG O2 Saturation ABG O2 Content ABG Base Excess ABG Hemoglobin ABG Carboxyhemoglobin POC ABG HHb (Measured) ABG Methemoglobin ABG O2 Capacity ABG Potassium VBG pH VBG pCO2 VBG HCO3 VBG Total CO2 VBG O2 Sat (Calc) VBG Base Excess VBG Potassium Hgb O2 Saturation Sodium 141 Chloride 95 L Glucose Lactate FiO2 Potassium 5.5 H Carbon Dioxide 34 H Anion Gap 18 BUN 70 H Creatinine 2.3 H Est GFR ( Amer) 34 Est GFR (Non-Af Amer) 28 Random Glucose 192 H Calcium 7.7 L Iron TIBC % Saturation Total Bilirubin 0.7 AST 28 ALT 20 Alkaline Phosphatase 82 Total Protein 6.7 Albumin 3.6 Globulin 3.0 Albumin/Globulin Ratio 1.2 Arterial Blood Potassium Venous Blood Potassium 02/27/18 02/27/18 02/27/18 05:20 05:30 06:00 WBC RBC Hgb Hct MCV MCH MCHC RDW Plt Count MPV Gran % Lymph % (Auto) [place] % (Auto) Eos % (Auto) Baso % (Auto) Gran # Lymph # (Auto) [place] # (Auto) Eos # (Auto) Baso # (Auto) Neutrophils % (Manual) Band Neutrophils % Lymphocytes % (Manual) Monocytes % (Manual) Platelet Evaluation Basophilic Stippling Anisocytosis (manual) Retic Count 7.51 H PT INR APTT pCO2 62 H pO2 81.0 HCO3 32.7 H ABG pH 7.33 L ABG Total CO2 34.6 H ABG O2 Saturation 98.4 H ABG O2 Content 10.0 L ABG Base Excess 5.9 H ABG Hemoglobin 7.4 L ABG Carboxyhemoglobin 2.9 H POC ABG HHb (Measured) 1.5 ABG Methemoglobin 1.3 ABG O2 Capacity 10.2 L ABG Potassium VBG pH VBG pCO2 VBG HCO3 VBG Total CO2 VBG O2 Sat (Calc) VBG Base Excess VBG Potassium Hgb O2 Saturation 94.3 L Sodium 143 Chloride 97 L Glucose Lactate FiO2 30.0 Potassium 5.0 Carbon Dioxide 33 Anion Gap 18 BUN 72 H Creatinine 2.5 H Est GFR ( Amer) 31 Est GFR (Non-Af Amer) 25 Random Glucose 184 H Calcium 8.2 L Iron TIBC % Saturation Total Bilirubin 0.6 AST 33 ALT 21 Alkaline Phosphatase 83 Total Protein 6.5 Albumin 3.6 Globulin 2.9 Albumin/Globulin Ratio 1.2 Arterial Blood Potassium Venous Blood Potassium 02/27/18 09:45 WBC RBC Hgb Hct MCV MCH MCHC RDW Plt Count MPV Gran % Lymph % (Auto) [place] % (Auto) Eos % (Auto) Baso % (Auto) Gran # Lymph # (Auto) [place] # (Auto) Eos # (Auto) Baso # (Auto) Neutrophils % (Manual) Band Neutrophils % Lymphocytes % (Manual) Monocytes % (Manual) Platelet Evaluation Basophilic Stippling Anisocytosis (manual) Retic Count PT INR APTT pCO2 pO2 HCO3 ABG pH ABG Total CO2 ABG O2 Saturation ABG O2 Content ABG Base Excess ABG Hemoglobin ABG Carboxyhemoglobin POC ABG HHb (Measured) ABG Methemoglobin ABG O2 Capacity ABG Potassium VBG pH VBG pCO2 VBG HCO3 VBG Total CO2 VBG O2 Sat (Calc) VBG Base Excess VBG Potassium Hgb O2 Saturation Sodium Chloride Glucose Lactate FiO2 Potassium Carbon Dioxide Anion Gap BUN Creatinine Est GFR ( Amer) Est GFR (Non-Af Amer) Random Glucose Calcium Iron 53 TIBC 306 % Saturation 17 L Total Bilirubin AST ALT Alkaline Phosphatase Total Protein Albumin Globulin Albumin/Globulin Ratio Arterial Blood Potassium Venous Blood Potassium Critical Care Progress Note - Nutrition Nutrition: Nutrition Category Date Time Status NPO Diet [DIET] Diets 02/27/18 Breakfast Ordered Attending/Attestation - Attestation I have personally seen and examined this patient.: Yes I have fully participated in the care of the patient.: Yes I have reviewed all pertinent clinical information: Yes Notes (Text): 02/27/18 11:59 The patient was seen and examined at the bedside. Patient care was discussed with resident Medical records, lab studies, and imaging were reviewed and management issues were discussed and formulated. Agree with above treatment plans as outlined in 's note with addition of the following: Acute on Chronic Respiratory Insufficiency \ Hypoxemia \ COPD \ GI bleed \ Anemia \ CKD -hemodynamic monitoring to maintain MAP>65 -O2 supplementation to maintain Spo2>90 Pao2>60; currently on trach collar 30% Fio2 -continue nebs, steroids and pulmonary toilet -continue broad spectrum ABX and f\u cultures ; ID team eval -f\u Bun\Cr and U\o -NPO diet and aspiration precautions; GI team f\u -continue PPI -f\u serial H\H and monitor for bleed; s\p 1 unit PRBC -DVT prophylaxis with SCD CCM time 30min
--- NOTE | 2018-02-27 12:09 | CP.PCM.CON ---
History of Present Illness - History of Present Illness History of Present Illness: 77 year old male with PMH of anoxic encephalopathy S/P tracheostomy and PEG tube placement 6 years ago, chronic anemia, HTN, COPD, history of CVA, GERD, CAD , history of C diff infection was brought in to [facility] [place] because of bleeding per rectum noted 2-3 days ago and has persisted. Blood was seen to be on the stool. The patient was also having some shortness of breath which has been slowly worsening over the past 2 weeks. There is no note of fevers, no vomiting, no diarrhea as per family and no loss of consciousness and no convulsions. Full ROS is unobtainable because of the patient's anoxic encephalopathy. The patient is noted to have leukocytosis in the ED and low grade temperatures and Infectious Diseases consult is requested to further evaluate and manage. Review of Systems - Review of Systems Systems not reviewed;Unavailable: Altered Mental Status (anoxic encephalopathy) Past Patient History - Infectious Disease Hx of Infectious Diseases: None - Past Social History Smoking Status: Former Smoker - CARDIAC Hx Cardiac Disorders: Yes - PULMONARY Hx Respiratory Disorders: Yes (on trache collar) Hx Chronic Obstructive Pulmonary Disease (COPD): Yes - NEUROLOGICAL Hx Neurological Disorder: Yes HX Cerebrovascular Accident: Yes - HEENT Hx HEENT Problems: No - RENAL Hx Chronic Kidney Disease: No - ENDOCRINE/METABOLIC Hx Endocrine Disorders: No - HEMATOLOGICAL/ONCOLOGICAL Hx Blood Disorders: Yes Hx Anemia: Yes - INTEGUMENTARY Hx Dermatological Problems: No - MUSCULOSKELETAL/RHEUMATOLOGICAL Hx Falls: No - GASTROINTESTINAL Hx Gastrointestinal Disorders: Yes (GI bleed) - GENITOURINARY/GYNECOLOGICAL Hx Genitourinary Disorders: Yes Hx Incontinence: Yes - PSYCHIATRIC Hx Psychophysiologic Disorder: No Hx Substance Use: No - SURGICAL HISTORY Hx Surgeries: Yes (tracheostomy) - ANESTHESIA Hx Anesthesia Reactions: Yes Hx Malignant Hyperthermia: No Meds Allergies/Adverse Reactions: Allergies Allergy/AdvReac Type Severity Reaction Status Date / Time heparin Allergy Intermediate LOW PLTS Verified 07/24/16 13:30 shellfish derived Allergy SWELLING Verified 07/24/16 13:30 - Medications Medications: Current Medications Acetylcysteine (Acetylcysteine 20%) 4 ml IH BIDRESP GANGA Last Admin: 02/27/18 07:01 Dose: 4 ml Albuterol Sulfate (Albuterol 0.5% Inhal Abi (2.5 Mg/0.5 Ml) Ud) 1.25 mg IH BIDRESP GANGA Last Admin: 02/27/18 07:00 Dose: 1.25 mg Budesonide (Pulmicort Respules) 0.5 mg IH [id number] [facility] Last Admin: 02/27/18 07:00 Dose: 0.5 mg Meropenem 500 mg/ Sodium (Chloride) 50 mls @ 100 mls/hr IVPB Q12 [facility] PRN Reason: Protocol Stop: 03/05/18 22:01 Last Admin: 02/27/18 09:01 Dose: 100 mls/hr Sodium Chloride (Sodium Chloride 0.9%) 1,000 mls @ 5 mls/hr IV .Q24H [facility] Last Admin: 02/27/18 03:30 Dose: 5 mls/hr Methylprednisolone (Solu-Medrol) 40 mg IVP Q8 [facility] Last Admin: 02/27/18 09:00 Dose: 40 mg Pantoprazole Sodium (Protonix Inj) 40 mg IVP DAILY [facility] Last Admin: 02/27/18 09:00 Dose: 40 mg Physical Exam - Constitutional Appears: Chronically Ill - Head Exam Head Exam: NORMAL INSPECTION - Neck Exam Neck exam: Negative for: Meningismus Additional comments: tracheostomy tube in place - Respiratory Exam Respiratory Exam: Decreased Breath Sounds - Cardiovascular Exam Cardiovascular Exam: +S1, +S2 - GI/Abdominal Exam GI & Abdominal Exam: Soft. absent: Tenderness Additional comments: chronic Cardona catheter in place Results - Vital Signs Recent Vital Signs: Last Vital Signs Temp 99.5 F 02/27/18 08:10 Pulse 91 H 02/27/18 08:10 Resp 28 H 02/27/18 08:10 BP 152/80 H 02/27/18 05:45 Pulse Ox 92 L 02/27/18 08:10 - Labs Result Diagrams: 02/27/18 05:20 02/27/18 05:20 Labs: Laboratory Results - last 24 hr 02/26/18 02/26/18 02/26/18 18:28 18:35 23:59 WBC 14.1 H RBC 2.55 L Hgb 8.1 L Hct 25.8 L MCV 101.2 MCH 31.8 MCHC 31.4 RDW 18.5 H Plt Count 166 MPV 11.3 H Gran % 92.9 H Lymph % (Auto) 6.0 L [place] % (Auto) 1.1 Eos % (Auto) 0.0 L Baso % (Auto) 0.0 Gran # 13.05 H Lymph # (Auto) 0.9 L [place] # (Auto) 0.2 Eos # (Auto) 0.0 Baso # (Auto) 0.00 Neutrophils % (Manual) 93 H Band Neutrophils % 4 H Lymphocytes % (Manual) 2 L Monocytes % (Manual) 1 Platelet Evaluation Normal Basophilic Stippling Slight Anisocytosis (manual) 1+ Retic Count PT INR APTT pCO2 66 H pO2 266 H 176.0 H HCO3 38.2 H ABG pH 7.37 ABG Total CO2 40.2 H ABG O2 Saturation 99.7 H ABG O2 Content ABG Base Excess 10.2 H ABG Hemoglobin ABG Carboxyhemoglobin POC ABG HHb (Measured) ABG Methemoglobin ABG O2 Capacity ABG Potassium 4.9 VBG pH 7.38 VBG pCO2 65.0 H VBG HCO3 40.2 H VBG Total CO2 42.3 H VBG O2 Sat (Calc) 100.2 H VBG Base Excess 12.0 H VBG Potassium 5.1 Hgb O2 Saturation Sodium 137.0 138.0 Chloride 100.0 102.0 Glucose 179 H 173 H Lactate 1.9 1.7 FiO2 21.0 40.0 Potassium Carbon Dioxide Anion Gap BUN Creatinine Est GFR ( Amer) Est GFR (Non-Af Amer) Random Glucose Calcium Total Bilirubin AST ALT Alkaline Phosphatase Total Protein Albumin Globulin Albumin/Globulin Ratio Arterial Blood Potassium 4.9 Venous Blood Potassium 5.1 02/26/18 02/27/18 02/27/18 23:59 05:20 05:20 WBC 11.9 H RBC 2.47 L Hgb 7.9 L Hct 24.9 L MCV 100.8 MCH 32.0 MCHC 31.7 RDW 18.9 H Plt Count 169 MPV 10.4 Gran % 88.1 H Lymph % (Auto) 8.9 L [place] % (Auto) 3.0 Eos % (Auto) 0.0 L Baso % (Auto) 0.0 Gran # 10.44 H Lymph # (Auto) 1.1 L [place] # (Auto) 0.4 Eos # (Auto) 0.0 Baso # (Auto) 0.00 Neutrophils % (Manual) Band Neutrophils % Lymphocytes % (Manual) Monocytes % (Manual) Platelet Evaluation Basophilic Stippling Anisocytosis (manual) Retic Count PT 12.9 H INR 1.12 APTT 28.6 pCO2 pO2 HCO3 ABG pH ABG Total CO2 ABG O2 Saturation ABG O2 Content ABG Base Excess ABG Hemoglobin ABG Carboxyhemoglobin POC ABG HHb (Measured) ABG Methemoglobin ABG O2 Capacity ABG Potassium VBG pH VBG pCO2 VBG HCO3 VBG Total CO2 VBG O2 Sat (Calc) VBG Base Excess VBG Potassium Hgb O2 Saturation Sodium 141 Chloride 95 L Glucose Lactate FiO2 Potassium 5.5 H Carbon Dioxide 34 H Anion Gap 18 BUN 70 H Creatinine 2.3 H Est GFR ( Amer) 34 Est GFR (Non-Af Amer) 28 Random Glucose 192 H Calcium 7.7 L Total Bilirubin 0.7 AST 28 ALT 20 Alkaline Phosphatase 82 Total Protein 6.7 Albumin 3.6 Globulin 3.0 Albumin/Globulin Ratio 1.2 Arterial Blood Potassium Venous Blood Potassium 02/27/18 02/27/18 02/27/18 05:20 05:30 06:00 WBC RBC Hgb Hct MCV MCH MCHC RDW Plt Count MPV Gran % Lymph % (Auto) [place] % (Auto) Eos % (Auto) Baso % (Auto) Gran # Lymph # (Auto) [place] # (Auto) Eos # (Auto) Baso # (Auto) Neutrophils % (Manual) Band Neutrophils % Lymphocytes % (Manual) Monocytes % (Manual) Platelet Evaluation Basophilic Stippling Anisocytosis (manual) Retic Count 7.51 H PT INR APTT pCO2 62 H pO2 81.0 HCO3 32.7 H ABG pH 7.33 L ABG Total CO2 34.6 H ABG O2 Saturation 98.4 H ABG O2 Content 10.0 L ABG Base Excess 5.9 H ABG Hemoglobin 7.4 L ABG Carboxyhemoglobin 2.9 H POC ABG HHb (Measured) 1.5 ABG Methemoglobin 1.3 ABG O2 Capacity 10.2 L ABG Potassium VBG pH VBG pCO2 VBG HCO3 VBG Total CO2 VBG O2 Sat (Calc) VBG Base Excess VBG Potassium Hgb O2 Saturation 94.3 L Sodium 143 Chloride 97 L Glucose Lactate FiO2 30.0 Potassium 5.0 Carbon Dioxide 33 Anion Gap 18 BUN 72 H Creatinine 2.5 H Est GFR ( Amer) 31 Est GFR (Non-Af Amer) 25 Random Glucose 184 H Calcium 8.2 L Total Bilirubin 0.6 AST 33 ALT 21 Alkaline Phosphatase 83 Total Protein 6.5 Albumin 3.6 Globulin 2.9 Albumin/Globulin Ratio 1.2 Arterial Blood Potassium Venous Blood Potassium Assessment & Plan - Assessment and Plan (Free Text) Plan: Assessment systemic inflammatory response syndrome, R/O sepsis due to UTI, R/O intra- abdominal infection in this patient with rectal bleeding history of MRSA urinary tract infection acute on chronic anemia, for blood transfusion chronic renal failure anoxic encephalopathy S/P tracheostomy and PEG tube placement 4 years ago HTN COPD history of CVA GERD CAD history of C diff infection Plan Started patient on a dose of IV Vancomycin and started Merrem pending blood, urine cx; follow up GI evaluation of rectal bleeding will monitor clinically
[2018-02-27 12:38] LABS: FERRITIN 57.1 ng/mL
[2018-02-27 12:46] LABS: GRAN # 6.41 (1.4-6.5); GRAN % 79.6 % (50.0-68.0); HEMOGLOBIN 7.2 g/dL (14.0-18.0); LYMPH % 12.3 % (22.0-35.0); MEAN CELL VOLUME 101.8 fl (80.0-105.0); MEAN CORPUSCULAR HEMOGLOBIN 32.4 pg (25.0-35.0); MEAN CORPUSCULAR HGB CONC 31.9 g/dl (31.0-37.0); MEAN PLATELET VOLUME 11.8 fl (7.0-11.0); MONO # 0.7 (0.1-0.6); MONO % 8.1 % (1.0-6.0); RBC 2.22 10^6/uL (3.5-6.1); RED CELL DISTRIBUTION WIDTH 19.1 % (11.5-14.5); WHITE BLOOD COUNT 8.1 10^3/ul (4.5-11.0)
[2018-02-27 13:09] LABS: FOLATE > 20.0 ng/mL
[2018-02-27] MEDS ORDERED: Propofol 10 mg/ml Inj (20 ML) ONE (15:05)
[2018-02-27] MEDS ORDERED: Phenylephrine 10 mg/ml Inj ONE (15:06)
--- NOTE | 2018-02-27 16:09 | CP.PCM.CON ---
<Peggy Moseley - Last Filed: 02/27/18 16:16> History of Present Illness - History of Present Illness History of Present Illness: GI Fellow PGY5 Consult Note This is a 77 year old male with PMH of COPD, CVA, anoxic encephalopathy, ventilator dependent s/p trache, chronic anemia, history of blood transfusion, GERD, CAD presenting to the ED for SOB that began two weeks ago but acutely worsened prior to arrival. Per patient's family, patient has also had tarry stool for two days. Limited ROS due to nonverbal patient. Currently has tracheostomy, diaz catheter and PEG tube. S/P tracheostomy and PEG tube placement 6 years ago. There is no note of fevers, no vomiting, no diarrhea as per family and no loss of consciousness and no convulsions. ROS: A 12pt ROS was unable to be obtained due to pt's nonverbal state PMH: As stated above PSH: Trache,PEG SH: former smoker FH: Neg for colon cancer Past Patient History - Infectious Disease Hx of Infectious Diseases: None - Past Social History Smoking Status: Former Smoker - CARDIAC Hx Cardiac Disorders: Yes - PULMONARY Hx Respiratory Disorders: Yes (on trache collar) Hx Chronic Obstructive Pulmonary Disease (COPD): Yes - NEUROLOGICAL Hx Neurological Disorder: Yes HX Cerebrovascular Accident: Yes - HEENT Hx HEENT Problems: No - RENAL Hx Chronic Kidney Disease: No - ENDOCRINE/METABOLIC Hx Endocrine Disorders: No - HEMATOLOGICAL/ONCOLOGICAL Hx Blood Transfusions: No Hx Blood Transfusion Reaction: (NA) - INTEGUMENTARY Hx Dermatological Problems: No - MUSCULOSKELETAL/RHEUMATOLOGICAL Hx Falls: No - GASTROINTESTINAL Hx Gastrointestinal Disorders: Yes (GI bleed) - GENITOURINARY/GYNECOLOGICAL Hx Genitourinary Disorders: Yes Hx Incontinence: Yes - PSYCHIATRIC Hx Psychophysiologic Disorder: No Hx Substance Use: No - SURGICAL HISTORY Hx Surgeries: Yes (tracheostomy) - ANESTHESIA Hx Anesthesia Reactions: Yes Hx Malignant Hyperthermia: No Meds Allergies/Adverse Reactions: Allergies Allergy/AdvReac Type Severity Reaction Status Date / Time heparin Allergy Intermediate LOW PLTS Verified 07/24/16 13:30 shellfish derived Allergy SWELLING Verified 07/24/16 13:30 - Medications Medications: Current Medications Acetylcysteine (Acetylcysteine 20%) 4 ml IH BIDRESP GANGA Last Admin: 02/27/18 07:01 Dose: 4 ml Albuterol Sulfate (Albuterol 0.5% Inhal Abi (2.5 Mg/0.5 Ml) Ud) 1.25 mg IH BIDRESP [facility] Last Admin: 02/27/18 07:00 Dose: 1.25 mg Budesonide (Pulmicort Respules) 0.5 mg IH [id number] [facility] Last Admin: 02/27/18 07:00 Dose: 0.5 mg Doxycycline Hyclate (Doryx) 100 mg PO Q12 [facility]GA PRN Reason: Protocol Last Admin: 02/27/18 10:09 Dose: 100 mg Meropenem 500 mg/ Sodium (Chloride) 50 mls @ 100 mls/hr IVPB Q12 [facility] PRN Reason: Protocol Stop: 03/05/18 22:01 Last Admin: 02/27/18 09:01 Dose: 100 mls/hr Sodium Chloride (Sodium Chloride 0.9%) 1,000 mls @ 5 mls/hr IV .Q24H [facility] Last Admin: 02/27/18 03:30 Dose: 5 mls/hr Methylprednisolone (Solu-Medrol) 40 mg IVP Q8 [facility] Last Admin: 02/27/18 09:00 Dose: 40 mg Pantoprazole Sodium (Protonix Inj) 40 mg IVP DAILY [facility] Last Admin: 02/27/18 09:00 Dose: 40 mg Physical Exam - Constitutional Appears: Chronically Ill - Head Exam Head Exam: ATRAUMATIC, NORMAL INSPECTION, NORMOCEPHALIC - ENT Exam ENT Exam: Mucous Membranes Dry - Respiratory Exam Respiratory Exam: Decreased Breath Sounds, Rhonchi, NORMAL BREATHING PATTERN - Cardiovascular Exam Cardiovascular Exam: Tachycardia, +S1, +S2 - GI/Abdominal Exam GI & Abdominal Exam: Normal Bowel Sounds, Soft. absent: Distended, Organomegaly Additional comments: PEG site clean and dry, fluid flushed gastric - Rectal Exam Rectal Exam: NORMAL INSPECTION. absent: Black Stool, Bloody Stool, Fecal Impaction - Extremities Exam Extremities exam: Positive for: normal inspection, pedal edema - Psychiatric Exam Psychiatric exam: Flat Affect - Skin Skin Exam: Dry, Intact, Normal Color, Warm Results - Vital Signs Recent Vital Signs: Last Vital Signs Temp 99.5 F 02/27/18 10:00 Pulse 88 02/27/18 15:24 Resp 23 02/27/18 15:24 BP 131/67 02/27/18 15:24 Pulse Ox 100 02/27/18 15:24 - Labs Result Diagrams: 02/27/18 12:30 02/27/18 05:20 Labs: Laboratory Results - last 24 hr 02/26/18 02/26/18 02/26/18 18:28 18:35 23:59 WBC 14.1 H RBC 2.55 L Hgb 8.1 L Hct 25.8 L MCV 101.2 MCH 31.8 MCHC 31.4 RDW 18.5 H Plt Count 166 MPV 11.3 H Gran % 92.9 H Lymph % (Auto) 6.0 L Lares % (Auto) 1.1 Eos % (Auto) 0.0 L Baso % (Auto) 0.0 Gran # 13.05 H Lymph # (Auto) 0.9 L Lares # (Auto) 0.2 Eos # (Auto) 0.0 Baso # (Auto) 0.00 Neutrophils % (Manual) 93 H Band Neutrophils % 4 H Lymphocytes % (Manual) 2 L Monocytes % (Manual) 1 Platelet Evaluation Normal Basophilic Stippling Slight Anisocytosis (manual) 1+ Retic Count Haptoglobin PT INR APTT pCO2 66 H pO2 266 H 176.0 H HCO3 38.2 H ABG pH 7.37 ABG Total CO2 40.2 H ABG O2 Saturation 99.7 H ABG O2 Content ABG Base Excess 10.2 H ABG Hemoglobin ABG Carboxyhemoglobin POC ABG HHb (Measured) ABG Methemoglobin ABG O2 Capacity ABG Potassium 4.9 VBG pH 7.38 VBG pCO2 65.0 H VBG HCO3 40.2 H VBG Total CO2 42.3 H VBG O2 Sat (Calc) 100.2 H VBG Base Excess 12.0 H VBG Potassium 5.1 Hgb O2 Saturation Sodium 137.0 138.0 Chloride 100.0 102.0 Glucose 179 H 173 H Lactate 1.9 1.7 FiO2 21.0 40.0 Potassium Carbon Dioxide Anion Gap BUN Creatinine Est GFR ( Amer) Est GFR (Non-Af Amer) Random Glucose Calcium Iron TIBC % Saturation Ferritin Total Bilirubin AST ALT Alkaline Phosphatase Total Protein Albumin Globulin Albumin/Globulin Ratio Vitamin B12 Folate Arterial Blood Potassium 4.9 Venous Blood Potassium 5.1 02/26/18 02/27/18 02/27/18 23:59 05:20 05:20 WBC 11.9 H RBC 2.47 L Hgb 7.9 L Hct 24.9 L MCV 100.8 MCH 32.0 MCHC 31.7 RDW 18.9 H Plt Count 169 MPV 10.4 Gran % 88.1 H Lymph % (Auto) 8.9 L Lares % (Auto) 3.0 Eos % (Auto) 0.0 L Baso % (Auto) 0.0 Gran # 10.44 H Lymph # (Auto) 1.1 L Lares # (Auto) 0.4 Eos # (Auto) 0.0 Baso # (Auto) 0.00 Neutrophils % (Manual) Band Neutrophils % Lymphocytes % (Manual) Monocytes % (Manual) Platelet Evaluation Basophilic Stippling Anisocytosis (manual) Retic Count Haptoglobin PT 12.9 H INR 1.12 APTT 28.6 pCO2 pO2 HCO3 ABG pH ABG Total CO2 ABG O2 Saturation ABG O2 Content ABG Base Excess ABG Hemoglobin ABG Carboxyhemoglobin POC ABG HHb (Measured) ABG Methemoglobin ABG O2 Capacity ABG Potassium VBG pH VBG pCO2 VBG HCO3 VBG Total CO2 VBG O2 Sat (Calc) VBG Base Excess VBG Potassium Hgb O2 Saturation Sodium 141 Chloride 95 L Glucose Lactate FiO2 Potassium 5.5 H Carbon Dioxide 34 H Anion Gap 18 BUN 70 H Creatinine 2.3 H Est GFR ( Amer) 34 Est GFR (Non-Af Amer) 28 Random Glucose 192 H Calcium 7.7 L Iron TIBC % Saturation Ferritin Total Bilirubin 0.7 AST 28 ALT 20 Alkaline Phosphatase 82 Total Protein 6.7 Albumin 3.6 Globulin 3.0 Albumin/Globulin Ratio 1.2 Vitamin B12 Folate Arterial Blood Potassium Venous Blood Potassium 02/27/18 02/27/18 02/27/18 05:20 05:30 05:30 WBC RBC Hgb Hct MCV MCH MCHC RDW Plt Count MPV Gran % Lymph % (Auto) Lares % (Auto) Eos % (Auto) Baso % (Auto) Gran # Lymph # (Auto) Lares # (Auto) Eos # (Auto) Baso # (Auto) Neutrophils % (Manual) Band Neutrophils % Lymphocytes % (Manual) Monocytes % (Manual) Platelet Evaluation Basophilic Stippling Anisocytosis (manual) Retic Count Haptoglobin 120.1 PT INR APTT pCO2 pO2 HCO3 ABG pH ABG Total CO2 ABG O2 Saturation ABG O2 Content ABG Base Excess ABG Hemoglobin ABG Carboxyhemoglobin POC ABG HHb (Measured) ABG Methemoglobin ABG O2 Capacity ABG Potassium VBG pH VBG pCO2 VBG HCO3 VBG Total CO2 VBG O2 Sat (Calc) VBG Base Excess VBG Potassium Hgb O2 Saturation Sodium 143 Chloride 97 L Glucose Lactate FiO2 Potassium 5.0 Carbon Dioxide 33 Anion Gap 18 BUN 72 H Creatinine 2.5 H Est GFR ( Amer) 31 Est GFR (Non-Af Amer) 25 Random Glucose 184 H Calcium 8.2 L Iron TIBC % Saturation Ferritin 57.1 Total Bilirubin 0.6 AST 33 ALT 21 Alkaline Phosphatase 83 Total Protein 6.5 Albumin 3.6 Globulin 2.9 Albumin/Globulin Ratio 1.2 Vitamin B12 847 Folate > 20.0 Arterial Blood Potassium Venous Blood Potassium 02/27/18 02/27/18 02/27/18 05:30 06:00 09:45 WBC RBC Hgb Hct MCV MCH MCHC RDW Plt Count MPV Gran % Lymph % (Auto) Lares % (Auto) Eos % (Auto) Baso % (Auto) Gran # Lymph # (Auto) Lares # (Auto) Eos # (Auto) Baso # (Auto) Neutrophils % (Manual) Band Neutrophils % Lymphocytes % (Manual) Monocytes % (Manual) Platelet Evaluation Basophilic Stippling Anisocytosis (manual) Retic Count 7.51 H Haptoglobin PT INR APTT pCO2 62 H pO2 81.0 HCO3 32.7 H ABG pH 7.33 L ABG Total CO2 34.6 H ABG O2 Saturation 98.4 H ABG O2 Content 10.0 L ABG Base Excess 5.9 H ABG Hemoglobin 7.4 L ABG Carboxyhemoglobin 2.9 H POC ABG HHb (Measured) 1.5 ABG Methemoglobin 1.3 ABG O2 Capacity 10.2 L ABG Potassium VBG pH VBG pCO2 VBG HCO3 VBG Total CO2 VBG O2 Sat (Calc) VBG Base Excess VBG Potassium Hgb O2 Saturation 94.3 L Sodium Chloride Glucose Lactate FiO2 30.0 Potassium Carbon Dioxide Anion Gap BUN Creatinine Est GFR ( Amer) Est GFR (Non-Af Amer) Random Glucose Calcium Iron 53 TIBC 306 % Saturation 17 L Ferritin Total Bilirubin AST ALT Alkaline Phosphatase Total Protein Albumin Globulin Albumin/Globulin Ratio Vitamin B12 Folate Arterial Blood Potassium Venous Blood Potassium 02/27/18 12:30 WBC 8.1 D RBC 2.22 L Hgb 7.2 L Hct 22.6 L MCV 101.8 MCH 32.4 MCHC 31.9 RDW 19.1 H Plt Count 144 MPV 11.8 H Gran % 79.6 H Lymph % (Auto) 12.3 L Lares % (Auto) 8.1 H Eos % (Auto) 0.0 L Baso % (Auto) 0.0 Gran # 6.41 Lymph # (Auto) 1.0 L Lares # (Auto) 0.7 H Eos # (Auto) 0.0 Baso # (Auto) 0.00 Neutrophils % (Manual) Band Neutrophils % Lymphocytes % (Manual) Monocytes % (Manual) Platelet Evaluation Basophilic Stippling Anisocytosis (manual) Retic Count Haptoglobin PT INR APTT pCO2 pO2 HCO3 ABG pH ABG Total CO2 ABG O2 Saturation ABG O2 Content ABG Base Excess ABG Hemoglobin ABG Carboxyhemoglobin POC ABG HHb (Measured) ABG Methemoglobin ABG O2 Capacity ABG Potassium VBG pH VBG pCO2 VBG HCO3 VBG Total CO2 VBG O2 Sat (Calc) VBG Base Excess VBG Potassium Hgb O2 Saturation Sodium Chloride Glucose Lactate FiO2 Potassium Carbon Dioxide Anion Gap BUN Creatinine Est GFR ( Amer) Est GFR (Non-Af Amer) Random Glucose Calcium Iron TIBC % Saturation Ferritin Total Bilirubin AST ALT Alkaline Phosphatase Total Protein Albumin Globulin Albumin/Globulin Ratio Vitamin B12 Folate Arterial Blood Potassium Venous Blood Potassium Assessment & Plan - Assessment and Plan (Free Text) Assessment: This is a 77yM presenting with SOB and rectal bleeding. 1. Melena 2. Anemia 3. SIRS 4. s/p PEG 5. s/p Trache 6. Anoxic brain injury Plan: -Continue supportive care -PEG flushed and aspirated with gastric fluid, no bleeding or coffee ground -Rectal exam negative, no active GI bleeding -Monitor H/H and transfuse as needed -PPI daily -Will plan for EGD today <Julia Emanuel V - Last Filed: 02/27/18 21:53> Meds - Medications Medications: Current Medications Acetylcysteine (Acetylcysteine 20%) 4 ml IH BIDRESP [facility] Last Admin: 02/27/18 17:11 Dose: 4 ml Albuterol/Ipratropium (Duoneb 3 Mg/0.5 Mg (3 Ml) Ud) 3 ml IH [id number] [facility] Last Admin: 02/27/18 17:15 Dose: 3 ml Budesonide (Pulmicort Respules) 0.5 mg IH [id number] [facility] Last Admin: 02/27/18 17:15 Dose: 0.5 mg Doxycycline Hyclate (Doryx) 100 mg PO Q12 [facility] PRN Reason: Protocol Last Admin: 02/27/18 10:09 Dose: 100 mg Meropenem 500 mg/ Sodium (Chloride) 50 mls @ 100 mls/hr IVPB Q12 [facility] PRN Reason: Protocol Stop: 03/05/18 22:01 Last Admin: 02/27/18 09:01 Dose: 100 mls/hr Sodium Chloride (Sodium Chloride 0.9%) 1,000 mls @ 5 mls/hr IV .Q24H [facility] Last Admin: 02/27/18 03:30 Dose: 5 mls/hr Iron Sucrose 200 mg/ Sodium (Chloride) 110 mls @ 110 mls/hr IVPB ONCE ONE Stop: 02/27/18 22:34 Methylprednisolone (Solu-Medrol) 40 mg IVP Q8 [facility] Last Admin: 02/27/18 16:57 Dose: 40 mg Pantoprazole Sodium (Protonix Inj) 40 mg IVP DAILY [facility] Last Admin: 02/27/18 09:00 Dose: 40 mg Polysaccharide Iron Complex (Ferrex-150) 150 mg GT DAILY [facility] Results - Vital Signs Recent Vital Signs: Last Vital Signs Temp 99.7 F H 02/27/18 17:34 Pulse 84 02/27/18 17:34 Resp 22 02/27/18 17:00 BP 152/69 H 02/27/18 18:01 Pulse Ox 96 02/27/18 17:34 - Labs Result Diagrams: 02/27/18 21:18 02/27/18 05:20 Labs: Laboratory Results - last 24 hr 02/26/18 02/26/18 02/27/18 23:59 23:59 05:20 WBC 14.1 H 11.9 H RBC 2.55 L 2.47 L Hgb 8.1 L 7.9 L Hct 25.8 L 24.9 L MCV 101.2 100.8 MCH 31.8 32.0 MCHC 31.4 31.7 RDW 18.5 H 18.9 H Plt Count 166 169 MPV 11.3 H 10.4 Gran % 92.9 H 88.1 H Lymph % (Auto) 6.0 L 8.9 L Lares % (Auto) 1.1 3.0 Eos % (Auto) 0.0 L 0.0 L Baso % (Auto) 0.0 0.0 Gran # 13.05 H 10.44 H Lymph # (Auto) 0.9 L 1.1 L Lares # (Auto) 0.2 0.4 Eos # (Auto) 0.0 0.0 Baso # (Auto) 0.00 0.00 Neutrophils % (Manual) 93 H Band Neutrophils % 4 H Lymphocytes % (Manual) 2 L Monocytes % (Manual) 1 Platelet Evaluation Normal Basophilic Stippling Slight Anisocytosis (manual) 1+ Retic Count Haptoglobin PT INR APTT pCO2 pO2 HCO3 ABG pH ABG Total CO2 ABG O2 Saturation ABG O2 Content ABG Base Excess ABG Hemoglobin ABG Carboxyhemoglobin POC ABG HHb (Measured) ABG Methemoglobin ABG O2 Capacity Hgb O2 Saturation FiO2 Sodium 141 Potassium 5.5 H Chloride 95 L Carbon Dioxide 34 H Anion Gap 18 BUN 70 H Creatinine 2.3 H Est GFR ( Amer) 34 Est GFR (Non-Af Amer) 28 Random Glucose 192 H Calcium 7.7 L Iron TIBC % Saturation Ferritin Total Bilirubin 0.7 AST 28 ALT 20 Alkaline Phosphatase 82 Total Protein 6.7 Albumin 3.6 Globulin 3.0 Albumin/Globulin Ratio 1.2 Vitamin B12 Folate Procalcitonin Ur L.pneumophila Ag 02/27/18 02/27/18 02/27/18 05:20 05:20 05:30 WBC RBC Hgb Hct MCV MCH MCHC RDW Plt Count MPV Gran % Lymph % (Auto) Lares % (Auto) Eos % (Auto) Baso % (Auto) Gran # Lymph # (Auto) Lares # (Auto) Eos # (Auto) Baso # (Auto) Neutrophils % (Manual) Band Neutrophils % Lymphocytes % (Manual) Monocytes % (Manual) Platelet Evaluation Basophilic Stippling Anisocytosis (manual) Retic Count Haptoglobin 120.1 PT 12.9 H INR 1.12 APTT 28.6 pCO2 pO2 HCO3 ABG pH ABG Total CO2 ABG O2 Saturation ABG O2 Content ABG Base Excess ABG Hemoglobin ABG Carboxyhemoglobin POC ABG HHb (Measured) ABG Methemoglobin ABG O2 Capacity Hgb O2 Saturation FiO2 Sodium 143 Potassium 5.0 Chloride 97 L Carbon Dioxide 33 Anion Gap 18 BUN 72 H Creatinine 2.5 H Est GFR ( Amer) 31 Est GFR (Non-Af Amer) 25 Random Glucose 184 H Calcium 8.2 L Iron TIBC % Saturation Ferritin Total Bilirubin 0.6 AST 33 ALT 21 Alkaline Phosphatase 83 Total Protein 6.5 Albumin 3.6 Globulin 2.9 Albumin/Globulin Ratio 1.2 Vitamin B12 Folate Procalcitonin Ur L.pneumophila Ag 02/27/18 02/27/18 02/27/18 05:30 05:30 06:00 WBC RBC Hgb Hct MCV MCH MCHC RDW Plt Count MPV Gran % Lymph % (Auto) Lares % (Auto) Eos % (Auto) Baso % (Auto) Gran # Lymph # (Auto) Lares # (Auto) Eos # (Auto) Baso # (Auto) Neutrophils % (Manual) Band Neutrophils % Lymphocytes % (Manual) Monocytes % (Manual) Platelet Evaluation Basophilic Stippling Anisocytosis (manual) Retic Count 7.51 H Haptoglobin PT INR APTT pCO2 62 H pO2 81.0 HCO3 32.7 H ABG pH 7.33 L ABG Total CO2 34.6 H ABG O2 Saturation 98.4 H ABG O2 Content 10.0 L ABG Base Excess 5.9 H ABG Hemoglobin 7.4 L ABG Carboxyhemoglobin 2.9 H POC ABG HHb (Measured) 1.5 ABG Methemoglobin 1.3 ABG O2 Capacity 10.2 L Hgb O2 Saturation 94.3 L FiO2 30.0 Sodium Potassium Chloride Carbon Dioxide Anion Gap BUN Creatinine Est GFR ( Amer) Est GFR (Non-Af Amer) Random Glucose Calcium Iron TIBC % Saturation Ferritin 57.1 Total Bilirubin AST ALT Alkaline Phosphatase Total Protein Albumin Globulin Albumin/Globulin Ratio Vitamin B12 847 Folate > 20.0 Procalcitonin Ur L.pneumophila Ag 02/27/18 02/27/18 02/27/18 09:45 09:45 10:26 WBC RBC Hgb Hct MCV MCH MCHC RDW Plt Count MPV Gran % Lymph % (Auto) Lares % (Auto) Eos % (Auto) Baso % (Auto) Gran # Lymph # (Auto) Lares # (Auto) Eos # (Auto) Baso # (Auto) Neutrophils % (Manual) Band Neutrophils % Lymphocytes % (Manual) Monocytes % (Manual) Platelet Evaluation Basophilic Stippling Anisocytosis (manual) Retic Count Haptoglobin PT INR APTT pCO2 pO2 HCO3 ABG pH ABG Total CO2 ABG O2 Saturation ABG O2 Content ABG Base Excess ABG Hemoglobin ABG Carboxyhemoglobin POC ABG HHb (Measured) ABG Methemoglobin ABG O2 Capacity Hgb O2 Saturation FiO2 Sodium Potassium Chloride Carbon Dioxide Anion Gap BUN Creatinine Est GFR ( Amer) Est GFR (Non-Af Amer) Random Glucose Calcium Iron 53 TIBC 306 % Saturation 17 L Ferritin Total Bilirubin AST ALT Alkaline Phosphatase Total Protein Albumin Globulin Albumin/Globulin Ratio Vitamin B12 Folate Procalcitonin 3.30 H Ur L.pneumophila Ag Negative 02/27/18 02/27/18 12:30 21:18 WBC 8.1 D 5.9 D RBC 2.22 L 2.08 L Hgb 7.2 L 6.6 L* Hct 22.6 L 21.0 L MCV 101.8 101.0 MCH 32.4 31.7 MCHC 31.9 31.4 RDW 19.1 H 18.7 H Plt Count 144 136 MPV 11.8 H 11.0 Gran % 79.6 H 79.5 H Lymph % (Auto) 12.3 L 15.4 L Lares % (Auto) 8.1 H 5.1 Eos % (Auto) 0.0 L 0.0 L Baso % (Auto) 0.0 0.0 Gran # 6.41 4.69 Lymph # (Auto) 1.0 L 0.9 L Lares # (Auto) 0.7 H 0.3 Eos # (Auto) 0.0 0.0 Baso # (Auto) 0.00 0.00 Neutrophils % (Manual) Band Neutrophils % Lymphocytes % (Manual) Monocytes % (Manual) Platelet Evaluation Basophilic Stippling Anisocytosis (manual) Retic Count Haptoglobin PT INR APTT pCO2 pO2 HCO3 ABG pH ABG Total CO2 ABG O2 Saturation ABG O2 Content ABG Base Excess ABG Hemoglobin ABG Carboxyhemoglobin POC ABG HHb (Measured) ABG Methemoglobin ABG O2 Capacity Hgb O2 Saturation FiO2 Sodium Potassium Chloride Carbon Dioxide Anion Gap BUN Creatinine Est GFR ( Amer) Est GFR (Non-Af Amer) Random Glucose Calcium Iron TIBC % Saturation Ferritin Total Bilirubin AST ALT Alkaline Phosphatase Total Protein Albumin Globulin Albumin/Globulin Ratio Vitamin B12 Folate Procalcitonin Ur L.pneumophila Ag Attending/Attestation - Attestation I have personally seen and examined this patient.: Yes I have fully participated in the care of the patient.: Yes I have reviewed all pertinent clinical information: Yes Notes (Text): This is an addendum to GI consult report dictated by the GI Fellow.The patient was seen and examined earlier. Medical records, lab studies, imagings were reviewed. Last 24 hours events reviewed. Agreed with the above treatment plan as outlined in GI Fellow 's notes with the addition of the following dw Dr Renner and patients family. Anemia recurrent drop in Hct inspite of Iron supplements Scheduled for EGD and consider colon after revewing above workup 02/27/18 21:48
[2018-02-27] MEDS: Albuterol-Ipratrop 3 mg / 0.5 (3 ml) UD IH SCH ×2 (17:15→22:42)
[2018-02-27] MEDS ORDERED: Darbepoetin Alfa 100 mcg/ml Inj SC ONE (18:51)
[2018-02-27] MEDS ORDERED: Albuterol-Ipratrop 3 mg / 0.5 (3 ml) UD IH SCH (19:30)
[2018-02-27 21:23] LABS: GRAN # 4.69 (1.4-6.5); GRAN % 79.5 % (50.0-68.0); LYMPH # 0.9 (1.2-3.4); LYMPH % 15.4 % (22.0-35.0); MEAN CORPUSCULAR HEMOGLOBIN 31.7 pg (25.0-35.0); MEAN CORPUSCULAR HGB CONC 31.4 g/dl (31.0-37.0); MONO # 0.3 (0.1-0.6); MONO % 5.1 % (1.0-6.0); RBC 2.08 10^6/uL (3.5-6.1); RED CELL DISTRIBUTION WIDTH 18.7 % (11.5-14.5); WHITE BLOOD COUNT 5.9 10^3/ul (4.5-11.0)
[2018-02-27 21:28] LABS: HEMOGLOBIN 6.6 g/dL (14.0-18.0)
[2018-02-28 01:56] LABS: HEMOGLOBIN 7.4 g/dL (14.0-18.0)
[2018-02-28 02:07] LABS: BILIRUBIN,DIRECT 0.2 mg/dL (0.0-0.4)
--- NOTE | 2018-02-28 03:11 | CON ---
Copied To: Rose Mary Flor MD Attending MD: Rose Mary Flor MD DATE: 02/27/2018 PULMONARY CRITICAL CARE CONSULTATION REFERRING PHYSICIAN: Bridger Renner MD REASON FOR CONSULTATION: Respiratory failure, has a tracheostomy, short of breath, recently found to have anemia, GI bleed, renal failure. HISTORY OF PRESENT ILLNESS: This is a 77-year-old gentleman, well known to me from previous admission, last seen I think a year and a half ago, no followup from the office; has a history of chronic lung disease, respiratory failure tracheostomy dependent, history of stroke, anoxic encephalopathy, chronic anemia, history of coronary artery disease, history of renal insufficiency, brought into ER by the family, been having rectal bleed with clots, presently admitted to Intensive Care Unit, and daughter is at bedside. The patient is awake, alert, nonverbal, does not follow commands. Small amount of tracheostomy secretion. No hemoptysis, no hematemesis. Does have upper and lower extremity some swelling. PAST MEDICAL HISTORY: As per history of present illness. ALLERGIES: TO SHELLFISH AND HEPARIN. SOCIAL HISTORY Nonsmoker, nondrinker. MEDICATIONS: He is on Mucomyst inhaled every 12 hours, doxycycline 100 mg every 12 hours, DuoNeb every 4 hours, meropenem is at 500 mg every 12 hours, Protonix 40 mg daily, Pulmicort inhaled twice a day, Solu-Medrol 40 mg every 8 hours. REVIEW OF SYSTEMS: He is mostly awake, nonverbal, does not follow commands. PHYSICAL EXAMINATION: VITAL SIGNS: Temperature is 99, heart rate is 85, respiratory rate is 22, blood pressure 156/74, pulse ox 95%, on trach collar. HEENT: Moist mucous membrane. Crowded airway. Mallampati score is 4. NECK: Short thick neck, tracheostoma looks okay. Has some clear secretion. LUNGS: Have scattered rhonchi. HEART: S1 and S2. ABDOMEN: Always distended. G-tube area looks okay. EXTREMITIES: Has some edema. NEUROLOGICAL: Seems awake, nonverbal, does not follow commands. LABORATORY DATA: Shows hemoglobin 7.2, hematocrit 22.6, WBC 8.1, platelet count is 144. INR 1.12. PTT is 29. Blood gases done today shows pH 7.33, pCO2 is 62, O2 is 81, this is on 30% supplemental oxygen. Sodium 143, potassium 5, chloride 97, bicarbonate 33, BUN 72, creatinine 2.5, glucose 184, calcium 8.2. Iron is 53, TIBC 306, ferritin is at 57. AST 33, ALT 21, alk phos is 83. Albumin is 3.6. Procalcitonin is 3.3. Urinalysis shows leukocyte esterase is large, wbc 5 to 10. Urine Legionella antigen is negative. Microbiology; blood culture, there is no growth. Had a CT scan of the chest and abdomen done on admission yesterday, which shows no acute pathology. On the thoracic part, it shows bibasilar discoid atelectasis. IMPRESSION AND PLAN: Gastrointestinal bleed with anemia, hypoxic encephalopathy with vegetative state, respiratory failure requiring tracheostomy, feeding difficulty requiring G-tube, renal failure, history of renal stone, also has gallstones, history of tracheomalacia with bronchomalacia. His baseline hemoglobin has been around 8 or so, with chronic renal insufficiency. ProBNP is high, maybe there is a component of pneumonia. Case discussed with the patient's at bedside. All the questions answered. Noted GI consult has been called. The patient will have endoscopy to find the source of bleed. May not be a bad idea to start some iron and bone marrow stimulant for now. Continue inhaled bronchodilators. Continue antibiotics. Gastric prophylaxis. Sequential compression devices to lower extremity. Aspiration precaution. There is also a component of hypoventilation syndrome. We will have the labs in the morning. Thank you and we will follow with you. Rose Mary Flor MD
--- NOTE | 2018-02-28 03:23 | HP ---
Copied To: Bridger Renner MD Attending MD: Bridger Renner MD CHIEF COMPLAINT AND HISTORY OF PRESENT ILLNESS: This is a 77-year-old male who with a past medical history of being in a chronic agitated state. The patient has a chronic Cardona with PEG and trach. The patient has been taken care of by his family and they have been very good in taking care of him. The patient was found to be anemic and has been brought in for further evaluation. I am concerned that the patient may be bleeding, he gets frequent blood work and is monthly. The patient sometimes gets blood work done every 2-3 weeks and his hemoglobin has been decreasing. I have given him IV Venofer as well as Procrit as an outpatient to try to maintain his hemoglobin. The patient is nonverbal and not able to give much information, most of the information is taken from the patient's family as well as knowing him very well as an outpatient and speaking with the patient's visiting nurse. ALLERGIES: TO HEPARIN AND SHELLFISH. PAST MEDICAL HISTORY: 1. Anoxic encephalopathy. 2. Vent dependent. 3. Respiratory failure. 4. COPD. 5. GERD. 6. Coronary artery disease. FAMILY HISTORY: Negative for colon cancer. SOCIAL HISTORY: He is a former smoker. PHYSICAL EXAMINATION VITAL SIGNS: He has a temperature of 99.7, pulse of 85, blood pressure 156/74, respirations 22. GENERAL: The patient is lying in bed, flat, comfortable. HEENT: No oral lesion. Anicteric sclerae. Moist mucosa. NECK: No JVD, adenopathy, or thyromegaly. CARDIOVASCULAR: S1 and S2, regular. No murmurs, rubs, or gallops. LUNGS: Clear to auscultation bilaterally. No wheeze, rales, or rhonchi. ABDOMEN: Bowel sounds are positive, soft, nontender and nondistended. EXTREMITIES: No cyanosis, clubbing or edema. LABORATORY DATA: Labs have been reviewed. His hemoglobin was 8.1, repeat is 7.2, repeat is 6.6. The patient's creatinine is 2.2. His iron saturation is 17% with a ferritin of 57. ASSESSMENT: 1. Acute anemia secondary to blood loss. 2. Anoxic encephalopathy. 3. Percutaneous endoscopic gastrostomy. 4. Tracheostomy. 5. Nephrolithiasis. 6. Splenomegaly. 7. Chololithiasis. 8. Bilateral renal cysts. 9. Thrombocytopenia, mild, chronic. PLAN: The patient has a low hemoglobin. I did speak to Dr. Emanuel about the case this morning. I am concerned the patient may be actively bleeding. He will most likely need an endoscopy to be done. The patient will have continue repeat blood work. I did speak to the patient's at the bedside, gave an update of the patient is on doxycycline for antibiotics. He is on albuterol. The patient is on steroids. He is going to continue with Protonix. I will give a dose of Venofer to the patient and also give a dose of Procrit. Bridger Renner MD
[2018-02-28] MEDS: Albuterol-Ipratrop 3 mg / 0.5 (3 ml) UD IH SCH ×5 (03:55→19:47)
[2018-02-28] MEDS: Sodium Chloride 0.9% 1,000 ML IV SCH (06:09)
[2018-02-28] MEDS: MethylPREDNISolone 40 mg Vial IVP SCH ×3 (06:15→21:42)
[2018-02-28 07:00] LABS: HEMOGLOBIN 7.9 g/dL (14.0-18.0)
[2018-02-28 07:37] LABS: ALB/GLOB RATIO 1.2 (1.1-1.8); ALBUMIN 3.5 g/dL (3.0-4.8)
[2018-02-28] MEDS: Acetylcysteine 20% Inhal Soln (4ml) IH SCH ×2 (08:07→19:46)
[2018-02-28] MEDS: Budesonide 0.5 mg/2 ml Inhal Susp UD IH SCH ×2 (08:08→19:49)
[2018-02-28] MEDS: Meropenem 500 MG in Sodium Chloride 0.9% 50 ML IVPB SCH ×2 (09:45→22:43)
[2018-02-28] MEDS ORDERED: Iron Complex Polysacch 150mg Cap GT SCH (10:00)
--- NOTE | 2018-02-28 11:15 | CP.PCM.PN ---
Subjective - Date & Time of Evaluation Date of Evaluation: 02/28/18 Time of Evaluation: 10:05 - Subjective Subjective: Patient not the ventilator, a little more awake today, no blood in the stool since admission, no fevers. Objective - Vital Signs/Intake and Output Vital Signs (last 24 hours): Temp Pulse Resp BP Pulse Ox 99.5 F 88 24 152/80 H 96 02/27/18 10:00 02/27/18 10:00 02/27/18 10:00 02/27/18 05:45 02/27/18 10:00 Intake and Output: 02/27/18 02/27/18 06:59 18:59 Intake Total 1093 Output Total 600 Balance 493 - Medications Medications: Current Medications Acetylcysteine (Acetylcysteine 20%) 4 ml IH BIDRESP [facility] Last Admin: 02/27/18 07:01 Dose: 4 ml Albuterol Sulfate (Albuterol 0.5% Inhal Abi (2.5 Mg/0.5 Ml) Ud) 1.25 mg IH BIDRESP [facility] Last Admin: 02/27/18 07:00 Dose: 1.25 mg Budesonide (Pulmicort Respules) 0.5 mg IH [id number] [facility] Last Admin: 02/27/18 07:00 Dose: 0.5 mg Doxycycline Hyclate (Doryx) 100 mg PO Q12 [facility] PRN Reason: Protocol Meropenem 500 mg/ Sodium (Chloride) 50 mls @ 100 mls/hr IVPB Q12 [facility] PRN Reason: Protocol Stop: 03/05/18 22:01 Last Admin: 02/27/18 09:01 Dose: 100 mls/hr Sodium Chloride (Sodium Chloride 0.9%) 1,000 mls @ 5 mls/hr IV .Q24H [facility] Last Admin: 02/27/18 03:30 Dose: 5 mls/hr Methylprednisolone (Solu-Medrol) 40 mg IVP Q8 [facility] Last Admin: 02/27/18 09:00 Dose: 40 mg Pantoprazole Sodium (Protonix Inj) 40 mg IVP DAILY [facility] Last Admin: 02/27/18 09:00 Dose: 40 mg - Labs Labs: 02/27/18 05:20 02/27/18 05:20 PT 12.9 SECONDS (9.4-12.5) H 02/27/18 05:20 INR 1.12 02/27/18 05:20 APTT 28.6 Seconds (25.1-36.5) 02/27/18 05:20 - Constitutional Appears: Chronically Ill - Head Exam Head Exam: NORMAL INSPECTION - ENT Exam ENT Exam: Mucous Membranes Moist Additional comments: tracheostomy tube in place - Respiratory Exam Respiratory Exam: Decreased Breath Sounds - Cardiovascular Exam Cardiovascular Exam: +S1, +S2 - GI/Abdominal Exam GI & Abdominal Exam: Soft. absent: Tenderness Additional comments: Cardona catheter in place Assessment and Plan - Assessment and Plan (Free Text) Plan: Assessment systemic inflammatory response syndrome, R/O sepsis due to UTI, R/O intra- abdominal infection in this patient with rectal bleeding history of MRSA urinary tract infection acute on chronic anemia, for blood transfusion chronic renal failure anoxic encephalopathy S/P tracheostomy and PEG tube placement 4 years ago HTN COPD history of CVA GERD CAD history of C diff infection Plan Started patient on a dose of IV Vancomycin and continue Merrem day 2 pending urine cx; blood cx are negative; follow up GI evaluation of rectal bleeding will continue to monitor clinically
[2018-02-28] MEDS ORDERED: Iron Complex Polysacch 150mg Cap PO SCH (12:00)
--- NOTE | 2018-02-28 12:10 | CP.PCM.PN ---
Subjective - Date & Time of Evaluation Date of Evaluation: 02/28/18 Time of Evaluation: 07:10 - Subjective Subjective: PGY5 GI Follow-up Pt seen and examined bedside pt trached no meaningful conversation ROS: could not be conducted, 2/2 AMS Objective - Vital Signs/Intake and Output Vital Signs (last 24 hours): Temp Pulse Resp BP Pulse Ox 98.6 F 76 28 H 160/78 H 98 02/28/18 07:00 02/28/18 11:00 02/28/18 11:00 02/28/18 11:00 02/28/18 11:00 Intake and Output: 02/28/18 02/28/18 06:59 18:59 Intake Total 660 Output Total 1380 Balance -720 - Medications Medications: Current Medications Acetylcysteine (Acetylcysteine 20%) 4 ml IH BIDRESP [facility] Last Admin: 02/28/18 08:07 Dose: 4 ml Albuterol/Ipratropium (Duoneb 3 Mg/0.5 Mg (3 Ml) Ud) 3 ml IH [id number] [facility] Last Admin: 02/28/18 08:07 Dose: 3 ml Budesonide (Pulmicort Respules) 0.5 mg IH [id number] [facility] Last Admin: 02/28/18 08:08 Dose: 0.5 mg Doxycycline Hyclate (Doryx) 100 mg PO Q12 [facility] PRN Reason: Protocol Last Admin: 02/28/18 09:36 Dose: 100 mg Meropenem 500 mg/ Sodium (Chloride) 50 mls @ 100 mls/hr IVPB Q12 [facility] PRN Reason: Protocol Stop: 03/05/18 22:01 Last Admin: 02/28/18 09:45 Dose: 100 mls/hr Sodium Chloride (Sodium Chloride 0.9%) 1,000 mls @ 5 mls/hr IV .Q24H [facility] Last Admin: 02/28/18 06:09 Dose: 5 mls/hr Methylprednisolone (Solu-Medrol) 40 mg IVP Q8 [facility] Last Admin: 02/28/18 06:15 Dose: 40 mg Pantoprazole Sodium (Protonix Inj) 40 mg IVP DAILY [facility] Last Admin: 02/28/18 09:36 Dose: 40 mg Polysaccharide Iron Complex (Ferrex-150) 150 mg PO 1200 [facility] - Labs Labs: 02/28/18 06:45 02/28/18 06:45 PT 12.9 SECONDS (9.4-12.5) H 02/27/18 05:20 INR 1.12 02/27/18 05:20 APTT 28.6 Seconds (25.1-36.5) 02/27/18 05:20 - Constitutional Appears: Well, No Acute Distress - Head Exam Head Exam: ATRAUMATIC, NORMOCEPHALIC - Eye Exam Eye Exam: Normal appearance - ENT Exam ENT Exam: Mucous Membranes Moist, Normal Exam - Neck Exam Neck Exam: Normal Inspection - Respiratory Exam Respiratory Exam: Clear to Ausculation Bilateral, NORMAL BREATHING PATTERN. absent: Rales, Wheezes, Respiratory Distress - Cardiovascular Exam Cardiovascular Exam: REGULAR RHYTHM, +S1, +S2 - GI/Abdominal Exam GI & Abdominal Exam: Soft, Normal Bowel Sounds. absent: Firm, Guarding, Rigid, Tenderness - Extremities Exam Extremities Exam: absent: Joint Swelling - Neurological Exam Neurological Exam: Altered - Psychiatric Exam Additional comments: could not assess 2/2 AMS - Skin Skin Exam: Dry, Intact, Normal Color, Warm Assessment and Plan - Assessment and Plan (Free Text) Assessment: This is a 77yM presenting with SOB and rectal bleeding. s/p EGD 02/27/18: no signs of acute bleeding or source of bleeding 1. Melena 2. Anemia 3. SIRS 4. s/p PEG 5. s/p Trache 6. Anoxic brain injury Plan: -Continue supportive care -PEG flushed and aspirated with gastric fluid, no bleeding or coffee ground -Rectal exam negative, no active GI bleeding -Monitor H/H and transfuse as needed -PPI daily will D/W Dr. Emanuel
[2018-02-28 12:20] LABS: BASO # 0.01 K/mm3 (0.0-2.0); BASO % 0.1 % (0.0-3.0); GRAN # 5.17 (1.4-6.5); GRAN % 75.5 % (50.0-68.0); HEMOGLOBIN 8.5 g/dL (14.0-18.0); LYMPH # 1.2 (1.2-3.4); LYMPH % 17.2 % (22.0-35.0); MEAN CELL VOLUME 99.2 fl (80.0-105.0); MEAN CORPUSCULAR HGB CONC 32.2 g/dl (31.0-37.0); MEAN PLATELET VOLUME 11.5 fl (7.0-11.0); MONO # 0.5 (0.1-0.6); MONO % 7.2 % (1.0-6.0); RBC 2.66 10^6/uL (3.5-6.1); RED CELL DISTRIBUTION WIDTH 19.6 % (11.5-14.5); WHITE BLOOD COUNT 6.9 10^3/ul (4.5-11.0)
--- NOTE | 2018-02-28 13:01 | CP.CCUPN ---
<Julien Coulter - Last Filed: 02/28/18 12:55> CCU Subjective - Physician Review Events Since Last Encounter (Free Text): Patient seen and examined at bedside this morning. Hemoglobin 6.6 overnight and transfused 2 units PRBC with most recent hemoglobin today of 8.5. Patient's , who is primary platform man at home, states patient is back to baseline with breathing and is doing well. 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 CCU Objective - Vital Signs / Intake & Output Vital Signs (Last 4 hours): Vital Signs Pulse Resp BP Pulse Ox 02/28/18 11:00 76 28 H 160/78 H 98 02/28/18 10:00 72 18 159/68 H 98 02/28/18 09:00 71 25 H 171/84 H 99 Intake and Output (Last 8hrs): Intake & Output 02/27/18 02/28/18 02/28/18 22:59 06:59 14:59 Intake Total 125 535 Output Total 880 500 Balance -755 35 Intake: IV 110 50 NS 110 50 Tube Feeding 15 150 Blood Product 320 Other 15 Output: Urine 880 500 Urethral (Diaz) 880 500 Stool 0 - Physical Exam Head: Positive for: Atraumatic Mouth: Positive for: Dry Pharnyx: Negative for: ERYTHEMA Nose (Internal): Positive for: Normal Inspection Neck: Positive for: Normal Range of Motion, Other (tracheostomy site is clean dry and intact). Negative for: Meningeal Signs Respiratory/Chest: Positive for: Clear to Auscultation. Negative for: Respiratory Distress Cardiovascular: Positive for: Murmurs, Tachycardic Abdomen: Positive for: Distention, Feeding Tubes, Other (ecchymosis to right lower abdominal wall, no pulsatile masses. PEG tube in place with no bleeding or pus). Negative for: Tenderness Rectal: Positive for: Gross Blood. Negative for: Melena Genitourinary Male: Positive for: Other (diaz catheter, no hematuria or lesions ) Lower Extremity: Positive for: Edema Neurological: Positive for: Other (patient with vegetative state) Skin: Positive for: Pale Psychiatric: Negative for: Alert, Normal Insight, Normal Concentration - Medications Active Medications: Active Medications Generic Name Dose Route Start Last Admin Trade Name Freq PRN Reason Stop Dose Admin Acetylcysteine 4 ml 02/27/18 04:00 02/28/18 08:07 Acetylcysteine 20% IH 4 ml [id number] GANGA Administration Albuterol/Ipratropium 3 ml 02/27/18 17:00 02/28/18 12:09 Duoneb 3 Mg/0.5 Mg (3 Ml) Ud IH 3 ml [id number] GANGA Administration Budesonide 0.5 mg 02/27/18 03:00 02/28/18 08:08 Pulmicort Respules IH 0.5 mg [id number] GANGA Administration Doxycycline Hyclate 100 mg 02/27/18 10:00 02/28/18 09:36 Doryx PO 100 mg Q12 GANGA Administration Protocol Meropenem 500 mg/ Sodium 50 mls @ 100 mls/hr 02/26/18 22:00 02/28/18 09:45 Chloride IVPB 03/05/18 22:01 100 mls/hr Q12 GANGA Administration Protocol Sodium Chloride 1,000 mls @ 5 mls/hr 02/27/18 03:30 02/28/18 06:09 Sodium Chloride 0.9% IV 5 mls/hr .Q24H GANGA Administration Methylprednisolone 40 mg 02/26/18 19:58 02/28/18 06:15 Solu-Medrol IVP 40 mg Q8 GANGA Administration Pantoprazole Sodium 40 mg 02/27/18 10:00 02/28/18 09:36 Protonix Inj IVP 40 mg DAILY GANGA Administration Polysaccharide Iron Complex 150 mg 03/01/18 12:00 Ferrex-150 PO 1200 GANGA - Patient Studies Lab Studies: Microbiology Studies 02/27/18 12:20 Gram Stain - Final Trachasp Lab Studies 02/28/18 02/28/18 02/28/18 Range/Units 12:05 06:45 06:45 WBC 6.9 (4.5-11.0) 10^3/ul RBC 2.66 L (3.5-6.1) 10^6/uL Hgb 8.5 L 7.9 L (14.0-18.0) g/dL Hct 26.4 L 24.7 L (42.0-52.0) % MCV 99.2 (80.0-105.0) fl MCH 32.0 (25.0-35.0) pg MCHC 32.2 (31.0-37.0) g/dl RDW 19.6 H (11.5-14.5) % Plt Count 134 (120.0-450.0) 10^3/uL MPV 11.5 H (7.0-11.0) fl Gran % 75.5 H (50.0-68.0) % Lymph % (Auto) 17.2 L (22.0-35.0) % [place] % (Auto) 7.2 H (1.0-6.0) % Eos % (Auto) 0.0 L (1.5-5.0) % Baso % (Auto) 0.1 (0.0-3.0) % Gran # 5.17 (1.4-6.5) Lymph # (Auto) 1.2 (1.2-3.4) [place] # (Auto) 0.5 (0.1-0.6) Eos # (Auto) 0.0 (0.0-0.7) Baso # (Auto) 0.01 (0.0-2.0) K/mm3 Haptoglobin (30.0-200.0) mg/dL Sodium 143 (132-148) mmol/L Potassium 3.8 (3.6-5.0) mmol/L Chloride 97 L (98-107) mmol/L Carbon Dioxide 35 H (21-33) mmol/L Anion Gap 15 (10-20) BUN 91 H (7-21) mg/dL Creatinine 2.8 H (0.8-1.5) mg/dl Est GFR ( Amer) 27 Est GFR (Non-Af Amer) 22 Random Glucose 164 H (70-110) mg/dL Calcium 8.0 L (8.4-10.5) mg/dL Total Bilirubin 0.7 (0.2-1.3) mg/dL Direct Bilirubin (0.0-0.4) mg/dL AST 16 L D (17-59) U/L ALT 18 (7-56) U/L Alkaline Phosphatase 74 (38-126) U/L Lactate Dehydrogenase (333-699) U/L Total Protein 6.3 (5.8-8.3) g/dL Albumin 3.5 (3.0-4.8) g/dL Globulin 2.8 gm/dL Albumin/Globulin Ratio 1.2 (1.1-1.8) Vitamin B12 (239-931) pg/mL Folate ng/mL Procalcitonin (0.19-0.49) NG/ML Ur L.pneumophila Ag (NEGATIVE) 02/28/18 02/28/18 02/28/18 Range/Units 01:45 01:45 01:45 WBC (4.5-11.0) 10^3/ul RBC (3.5-6.1) 10^6/uL Hgb 7.4 L (14.0-18.0) g/dL Hct 23.0 L (42.0-52.0) % MCV (80.0-105.0) fl MCH (25.0-35.0) pg MCHC (31.0-37.0) g/dl RDW (11.5-14.5) % Plt Count (120.0-450.0) 10^3/uL MPV (7.0-11.0) fl Gran % (50.0-68.0) % Lymph % (Auto) (22.0-35.0) % [place] % (Auto) (1.0-6.0) % Eos % (Auto) (1.5-5.0) % Baso % (Auto) (0.0-3.0) % Gran # (1.4-6.5) Lymph # (Auto) (1.2-3.4) [place] # (Auto) (0.1-0.6) Eos # (Auto) (0.0-0.7) Baso # (Auto) (0.0-2.0) K/mm3 Haptoglobin 122.1 (30.0-200.0) mg/dL Sodium (132-148) mmol/L Potassium (3.6-5.0) mmol/L Chloride (98-107) mmol/L Carbon Dioxide (21-33) mmol/L Anion Gap (10-20) BUN (7-21) mg/dL Creatinine (0.8-1.5) mg/dl Est GFR ( Amer) Est GFR (Non-Af Amer) Random Glucose (70-110) mg/dL Calcium (8.4-10.5) mg/dL Total Bilirubin (0.2-1.3) mg/dL Direct Bilirubin 0.2 (0.0-0.4) mg/dL AST (17-59) U/L ALT (7-56) U/L Alkaline Phosphatase (38-126) U/L Lactate Dehydrogenase 306 L (333-699) U/L Total Protein (5.8-8.3) g/dL Albumin (3.0-4.8) g/dL Globulin gm/dL Albumin/Globulin Ratio (1.1-1.8) Vitamin B12 (239-931) pg/mL Folate ng/mL Procalcitonin (0.19-0.49) NG/ML Ur L.pneumophila Ag (NEGATIVE) 02/27/18 02/27/18 02/27/18 Range/Units 21:18 10:26 09:45 WBC 5.9 D (4.5-11.0) 10^3/ul RBC 2.08 L (3.5-6.1) 10^6/uL Hgb 6.6 L* (14.0-18.0) g/dL Hct 21.0 L (42.0-52.0) % MCV 101.0 (80.0-105.0) fl MCH 31.7 (25.0-35.0) pg MCHC 31.4 (31.0-37.0) g/dl RDW 18.7 H (11.5-14.5) % Plt Count 136 (120.0-450.0) 10^3/uL MPV 11.0 (7.0-11.0) fl Gran % 79.5 H (50.0-68.0) % Lymph % (Auto) 15.4 L (22.0-35.0) % [place] % (Auto) 5.1 (1.0-6.0) % Eos % (Auto) 0.0 L (1.5-5.0) % Baso % (Auto) 0.0 (0.0-3.0) % Gran # 4.69 (1.4-6.5) Lymph # (Auto) 0.9 L (1.2-3.4) [place] # (Auto) 0.3 (0.1-0.6) Eos # (Auto) 0.0 (0.0-0.7) Baso # (Auto) 0.00 (0.0-2.0) K/mm3 Haptoglobin (30.0-200.0) mg/dL Sodium (132-148) mmol/L Potassium (3.6-5.0) mmol/L Chloride (98-107) mmol/L Carbon Dioxide (21-33) mmol/L Anion Gap (10-20) BUN (7-21) mg/dL Creatinine (0.8-1.5) mg/dl Est GFR ( Amer) Est GFR (Non-Af Amer) Random Glucose (70-110) mg/dL Calcium (8.4-10.5) mg/dL Total Bilirubin (0.2-1.3) mg/dL Direct Bilirubin (0.0-0.4) mg/dL AST (17-59) U/L ALT (7-56) U/L Alkaline Phosphatase (38-126) U/L Lactate Dehydrogenase (333-699) U/L Total Protein (5.8-8.3) g/dL Albumin (3.0-4.8) g/dL Globulin gm/dL Albumin/Globulin Ratio (1.1-1.8) Vitamin B12 (239-931) pg/mL Folate ng/mL Procalcitonin 3.30 H (0.19-0.49) NG/ML Ur L.pneumophila Ag Negative (NEGATIVE) 02/27/18 Range/Units 05:30 WBC (4.5-11.0) 10^3/ul RBC (3.5-6.1) 10^6/uL Hgb (14.0-18.0) g/dL Hct (42.0-52.0) % MCV (80.0-105.0) fl MCH (25.0-35.0) pg MCHC (31.0-37.0) g/dl RDW (11.5-14.5) % Plt Count (120.0-450.0) 10^3/uL MPV (7.0-11.0) fl Gran % (50.0-68.0) % Lymph % (Auto) (22.0-35.0) % [place] % (Auto) (1.0-6.0) % Eos % (Auto) (1.5-5.0) % Baso % (Auto) (0.0-3.0) % Gran # (1.4-6.5) Lymph # (Auto) (1.2-3.4) [place] # (Auto) (0.1-0.6) Eos # (Auto) (0.0-0.7) Baso # (Auto) (0.0-2.0) K/mm3 Haptoglobin (30.0-200.0) mg/dL Sodium (132-148) mmol/L Potassium (3.6-5.0) mmol/L Chloride (98-107) mmol/L Carbon Dioxide (21-33) mmol/L Anion Gap (10-20) BUN (7-21) mg/dL Creatinine (0.8-1.5) mg/dl Est GFR ( Amer) Est GFR (Non-Af Amer) Random Glucose (70-110) mg/dL Calcium (8.4-10.5) mg/dL Total Bilirubin (0.2-1.3) mg/dL Direct Bilirubin (0.0-0.4) mg/dL AST (17-59) U/L ALT (7-56) U/L Alkaline Phosphatase (38-126) U/L Lactate Dehydrogenase (333-699) U/L Total Protein (5.8-8.3) g/dL Albumin (3.0-4.8) g/dL Globulin gm/dL Albumin/Globulin Ratio (1.1-1.8) Vitamin B12 847 (239-931) pg/mL Folate > 20.0 ng/mL Procalcitonin (0.19-0.49) NG/ML Ur L.pneumophila Ag (NEGATIVE) Laboratory Results - last 24 hr 02/27/18 02/27/18 02/27/18 05:30 09:45 10:26 WBC RBC Hgb Hct MCV MCH MCHC RDW Plt Count MPV Gran % Lymph % (Auto) [place] % (Auto) Eos % (Auto) Baso % (Auto) Gran # Lymph # (Auto) [place] # (Auto) Eos # (Auto) Baso # (Auto) Haptoglobin Sodium Potassium Chloride Carbon Dioxide Anion Gap BUN Creatinine Est GFR ( Amer) Est GFR (Non-Af Amer) Random Glucose Calcium Total Bilirubin Direct Bilirubin AST ALT Alkaline Phosphatase Lactate Dehydrogenase Total Protein Albumin Globulin Albumin/Globulin Ratio Vitamin B12 847 Folate > 20.0 Procalcitonin 3.30 H Ur L.pneumophila Ag Negative 02/27/18 02/28/18 02/28/18 21:18 01:45 01:45 WBC 5.9 D RBC 2.08 L Hgb 6.6 L* Hct 21.0 L MCV 101.0 MCH 31.7 MCHC 31.4 RDW 18.7 H Plt Count 136 MPV 11.0 Gran % 79.5 H Lymph % (Auto) 15.4 L [place] % (Auto) 5.1 Eos % (Auto) 0.0 L Baso % (Auto) 0.0 Gran # 4.69 Lymph # (Auto) 0.9 L [place] # (Auto) 0.3 Eos # (Auto) 0.0 Baso # (Auto) 0.00 Haptoglobin 122.1 Sodium Potassium Chloride Carbon Dioxide Anion Gap BUN Creatinine Est GFR ( Amer) Est GFR (Non-Af Amer) Random Glucose Calcium Total Bilirubin Direct Bilirubin 0.2 AST ALT Alkaline Phosphatase Lactate Dehydrogenase 306 L Total Protein Albumin Globulin Albumin/Globulin Ratio Vitamin B12 Folate Procalcitonin Ur L.pneumophila Ag 02/28/18 02/28/18 02/28/18 01:45 06:45 06:45 WBC RBC Hgb 7.4 L 7.9 L Hct 23.0 L 24.7 L MCV MCH MCHC RDW Plt Count MPV Gran % Lymph % (Auto) [place] % (Auto) Eos % (Auto) Baso % (Auto) Gran # Lymph # (Auto) [place] # (Auto) Eos # (Auto) Baso # (Auto) Haptoglobin Sodium 143 Potassium 3.8 Chloride 97 L Carbon Dioxide 35 H Anion Gap 15 BUN 91 H Creatinine 2.8 H Est GFR ( Amer) 27 Est GFR (Non-Af Amer) 22 Random Glucose 164 H Calcium 8.0 L Total Bilirubin 0.7 Direct Bilirubin AST 16 L D ALT 18 Alkaline Phosphatase 74 Lactate Dehydrogenase Total Protein 6.3 Albumin 3.5 Globulin 2.8 Albumin/Globulin Ratio 1.2 Vitamin B12 Folate Procalcitonin Ur L.pneumophila Ag 02/28/18 12:05 WBC 6.9 RBC 2.66 L Hgb 8.5 L Hct 26.4 L MCV 99.2 MCH 32.0 MCHC 32.2 RDW 19.6 H Plt Count 134 MPV 11.5 H Gran % 75.5 H Lymph % (Auto) 17.2 L [place] % (Auto) 7.2 H Eos % (Auto) 0.0 L Baso % (Auto) 0.1 Gran # 5.17 Lymph # (Auto) 1.2 [place] # (Auto) 0.5 Eos # (Auto) 0.0 Baso # (Auto) 0.01 Haptoglobin Sodium Potassium Chloride Carbon Dioxide Anion Gap BUN Creatinine Est GFR ( Amer) Est GFR (Non-Af Amer) Random Glucose Calcium Total Bilirubin Direct Bilirubin AST ALT Alkaline Phosphatase Lactate Dehydrogenase Total Protein Albumin Globulin Albumin/Globulin Ratio Vitamin B12 Folate Procalcitonin Ur L.pneumophila Ag Fingerstick Blood Sugar Results: 188 Critical Care Progress Note - Nutrition Nutrition: Nutrition Category Date Time Status NPO Diet [DIET] Diets 02/27/18 Breakfast Ordered Assessment/Plan - Assessment and Plan (Free Text) Assessment: This is a 77 year old male with PMH of COPD, 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 Patient's respiratory status is improved today and back to baseline per who is patient's primary platform man. 2 units transfused overnight, hemoglobin today is 8.5 from 6.6 last night. Will monitor H/H q8. Plan: Neuro: -maintain normothermia -patient has limited neurological function due to previous stroke Cardio: -maintain MAP>65 -will monitor vitals including HR and BP closely Lungs: -SaO2 >90% -supplementary O2 PRN -duonebs PRN, pulmicort, solumedrol q8 -CXR: no active disease -Pulm on consult, Dr. Flor -GI: -02/27 upper endoscopy showed gastritis and stricture with no source of bleeding. -Will transfuse as needed and monitor H/H -NPO diet -GI prophylaxis with protonix -CT abd/pelvis: numerous stones in gallbladder, moderate fecal retention consistent with constipation -GI on consult, Dr Emanuel Renal: -maintain euvolemia -avoid nephrotoxic agents, hypochloremia -replace electrolytes as needed -BUN/Cr 91/2.8, will monitor ID: -WBC is 6.9 today, afebrile -on merrum day 3, doxycycline day 2 -U/A positive for leuk esterase -blood culture no growth after 24 hours. Sputum culture positive for gram negative rods -ID on consult, Dr. Diez Heme: -Hg today is 8.5 from 6.6 yesterday after two units transfusion. -Patient also needed needed one unit transfusion previous night -will monitor H/H q8 -currently no source of bleed Endo: -maintain euglycemia <Navarro,Bilal - Last Filed: 02/28/18 13:31> CCU Objective - Vital Signs / Intake & Output Vital Signs (Last 4 hours): Vital Signs Pulse Resp BP Pulse Ox 02/28/18 11:00 76 28 H 160/78 H 98 02/28/18 10:00 72 18 159/68 H 98 Intake and Output (Last 8hrs): Intake & Output 02/27/18 02/28/18 02/28/18 22:59 06:59 14:59 Intake Total 125 535 Output Total 880 500 Balance -755 35 Intake: IV 110 50 NS 110 50 Tube Feeding 15 150 Blood Product 320 Other 15 Output: Urine 880 500 Urethral (Diaz) 880 500 Stool 0 - Medications Active Medications: Active Medications Generic Name Dose Route Start Last Admin Trade Name Freq PRN Reason Stop Dose Admin Acetylcysteine 4 ml 02/27/18 04:00 02/28/18 08:07 Acetylcysteine 20% IH 4 ml [id number] GANGA Administration Albuterol/Ipratropium 3 ml 02/27/18 17:00 02/28/18 12:09 Duoneb 3 Mg/0.5 Mg (3 Ml) Ud IH 3 ml [id number] GANGA Administration Budesonide 0.5 mg 02/27/18 03:00 02/28/18 08:08 Pulmicort Respules IH 0.5 mg [id number] GANGA Administration Doxycycline Hyclate 100 mg 02/27/18 10:00 02/28/18 09:36 Doryx PO 100 mg Q12 GANGA Administration Protocol Meropenem 500 mg/ Sodium 50 mls @ 100 mls/hr 02/26/18 22:00 02/28/18 09:45 Chloride IVPB 03/05/18 22:01 100 mls/hr Q12 GANGA Administration Protocol Sodium Chloride 1,000 mls @ 5 mls/hr 02/27/18 03:30 02/28/18 06:09 Sodium Chloride 0.9% IV 5 mls/hr .Q24H GANGA Administration Methylprednisolone 40 mg 02/26/18 19:58 02/28/18 06:15 Solu-Medrol IVP 40 mg Q8 GANGA Administration Pantoprazole Sodium 40 mg 02/27/18 10:00 02/28/18 09:36 Protonix Inj IVP 40 mg DAILY GANGA Administration Polysaccharide Iron Complex 150 mg 03/01/18 12:00 Ferrex-150 PO 1200 GANGA - Patient Studies Lab Studies: Microbiology Studies 02/27/18 12:20 Gram Stain - Final Trachasp Lab Studies 02/28/18 02/28/18 02/28/18 Range/Units 12:05 06:45 06:45 WBC 6.9 (4.5-11.0) 10^3/ul RBC 2.66 L (3.5-6.1) 10^6/uL Hgb 8.5 L 7.9 L (14.0-18.0) g/dL Hct 26.4 L 24.7 L (42.0-52.0) % MCV 99.2 (80.0-105.0) fl MCH 32.0 (25.0-35.0) pg MCHC 32.2 (31.0-37.0) g/dl RDW 19.6 H (11.5-14.5) % Plt Count 134 (120.0-450.0) 10^3/uL MPV 11.5 H (7.0-11.0) fl Gran % 75.5 H (50.0-68.0) % Lymph % (Auto) 17.2 L (22.0-35.0) % [place] % (Auto) 7.2 H (1.0-6.0) % Eos % (Auto) 0.0 L (1.5-5.0) % Baso % (Auto) 0.1 (0.0-3.0) % Gran # 5.17 (1.4-6.5) Lymph # (Auto) 1.2 (1.2-3.4) [place] # (Auto) 0.5 (0.1-0.6) Eos # (Auto) 0.0 (0.0-0.7) Baso # (Auto) 0.01 (0.0-2.0) K/mm3 Haptoglobin (30.0-200.0) mg/dL Sodium 143 (132-148) mmol/L Potassium 3.8 (3.6-5.0) mmol/L Chloride 97 L (98-107) mmol/L Carbon Dioxide 35 H (21-33) mmol/L Anion Gap 15 (10-20) BUN 91 H (7-21) mg/dL Creatinine 2.8 H (0.8-1.5) mg/dl Est GFR ( Amer) 27 Est GFR (Non-Af Amer) 22 Random Glucose 164 H (70-110) mg/dL Calcium 8.0 L (8.4-10.5) mg/dL Total Bilirubin 0.7 (0.2-1.3) mg/dL Direct Bilirubin (0.0-0.4) mg/dL AST 16 L D (17-59) U/L ALT 18 (7-56) U/L Alkaline Phosphatase 74 (38-126) U/L Lactate Dehydrogenase (333-699) U/L Total Protein 6.3 (5.8-8.3) g/dL Albumin 3.5 (3.0-4.8) g/dL Globulin 2.8 gm/dL Albumin/Globulin Ratio 1.2 (1.1-1.8) Procalcitonin (0.19-0.49) NG/ML Ur L.pneumophila Ag (NEGATIVE) 02/28/18 02/28/18 02/28/18 Range/Units 01:45 01:45 01:45 WBC (4.5-11.0) 10^3/ul RBC (3.5-6.1) 10^6/uL Hgb 7.4 L (14.0-18.0) g/dL Hct 23.0 L (42.0-52.0) % MCV (80.0-105.0) fl MCH (25.0-35.0) pg MCHC (31.0-37.0) g/dl RDW (11.5-14.5) % Plt Count (120.0-450.0) 10^3/uL MPV (7.0-11.0) fl Gran % (50.0-68.0) % Lymph % (Auto) (22.0-35.0) % [place] % (Auto) (1.0-6.0) % Eos % (Auto) (1.5-5.0) % Baso % (Auto) (0.0-3.0) % Gran # (1.4-6.5) Lymph # (Auto) (1.2-3.4) [place] # (Auto) (0.1-0.6) Eos # (Auto) (0.0-0.7) Baso # (Auto) (0.0-2.0) K/mm3 Haptoglobin 122.1 (30.0-200.0) mg/dL Sodium (132-148) mmol/L Potassium (3.6-5.0) mmol/L Chloride (98-107) mmol/L Carbon Dioxide (21-33) mmol/L Anion Gap (10-20) BUN (7-21) mg/dL Creatinine (0.8-1.5) mg/dl Est GFR ( Amer) Est GFR (Non-Af Amer) Random Glucose (70-110) mg/dL Calcium (8.4-10.5) mg/dL Total Bilirubin (0.2-1.3) mg/dL Direct Bilirubin 0.2 (0.0-0.4) mg/dL AST (17-59) U/L ALT (7-56) U/L Alkaline Phosphatase (38-126) U/L Lactate Dehydrogenase 306 L (333-699) U/L Total Protein (5.8-8.3) g/dL Albumin (3.0-4.8) g/dL Globulin gm/dL Albumin/Globulin Ratio (1.1-1.8) Procalcitonin (0.19-0.49) NG/ML Ur L.pneumophila Ag (NEGATIVE) 02/27/18 02/27/18 02/27/18 Range/Units 21:18 10:26 09:45 WBC 5.9 D (4.5-11.0) 10^3/ul RBC 2.08 L (3.5-6.1) 10^6/uL Hgb 6.6 L* (14.0-18.0) g/dL Hct 21.0 L (42.0-52.0) % MCV 101.0 (80.0-105.0) fl MCH 31.7 (25.0-35.0) pg MCHC 31.4 (31.0-37.0) g/dl RDW 18.7 H (11.5-14.5) % Plt Count 136 (120.0-450.0) 10^3/uL MPV 11.0 (7.0-11.0) fl Gran % 79.5 H (50.0-68.0) % Lymph % (Auto) 15.4 L (22.0-35.0) % [place] % (Auto) 5.1 (1.0-6.0) % Eos % (Auto) 0.0 L (1.5-5.0) % Baso % (Auto) 0.0 (0.0-3.0) % Gran # 4.69 (1.4-6.5) Lymph # (Auto) 0.9 L (1.2-3.4) [place] # (Auto) 0.3 (0.1-0.6) Eos # (Auto) 0.0 (0.0-0.7) Baso # (Auto) 0.00 (0.0-2.0) K/mm3 Haptoglobin (30.0-200.0) mg/dL Sodium (132-148) mmol/L Potassium (3.6-5.0) mmol/L Chloride (98-107) mmol/L Carbon Dioxide (21-33) mmol/L Anion Gap (10-20) BUN (7-21) mg/dL Creatinine (0.8-1.5) mg/dl Est GFR ( Amer) Est GFR (Non-Af Amer) Random Glucose (70-110) mg/dL Calcium (8.4-10.5) mg/dL Total Bilirubin (0.2-1.3) mg/dL Direct Bilirubin (0.0-0.4) mg/dL AST (17-59) U/L ALT (7-56) U/L Alkaline Phosphatase (38-126) U/L Lactate Dehydrogenase (333-699) U/L Total Protein (5.8-8.3) g/dL Albumin (3.0-4.8) g/dL Globulin gm/dL Albumin/Globulin Ratio (1.1-1.8) Procalcitonin 3.30 H (0.19-0.49) NG/ML Ur L.pneumophila Ag Negative (NEGATIVE) Laboratory Results - last 24 hr 02/27/18 02/27/18 02/27/18 09:45 10:26 21:18 WBC 5.9 D RBC 2.08 L Hgb 6.6 L* Hct 21.0 L MCV 101.0 MCH 31.7 MCHC 31.4 RDW 18.7 H Plt Count 136 MPV 11.0 Gran % 79.5 H Lymph % (Auto) 15.4 L [place] % (Auto) 5.1 Eos % (Auto) 0.0 L Baso % (Auto) 0.0 Gran # 4.69 Lymph # (Auto) 0.9 L [place] # (Auto) 0.3 Eos # (Auto) 0.0 Baso # (Auto) 0.00 Haptoglobin Sodium Potassium Chloride Carbon Dioxide Anion Gap BUN Creatinine Est GFR ( Amer) Est GFR (Non-Af Amer) Random Glucose Calcium Total Bilirubin Direct Bilirubin AST ALT Alkaline Phosphatase Lactate Dehydrogenase Total Protein Albumin Globulin Albumin/Globulin Ratio Procalcitonin 3.30 H Ur L.pneumophila Ag Negative 02/28/18 02/28/18 02/28/18 01:45 01:45 01:45 WBC RBC Hgb 7.4 L Hct 23.0 L MCV MCH MCHC RDW Plt Count MPV Gran % Lymph % (Auto) [place] % (Auto) Eos % (Auto) Baso % (Auto) Gran # Lymph # (Auto) [place] # (Auto) Eos # (Auto) Baso # (Auto) Haptoglobin 122.1 Sodium Potassium Chloride Carbon Dioxide Anion Gap BUN Creatinine Est GFR ( Amer) Est GFR (Non-Af Amer) Random Glucose Calcium Total Bilirubin Direct Bilirubin 0.2 AST ALT Alkaline Phosphatase Lactate Dehydrogenase 306 L Total Protein Albumin Globulin Albumin/Globulin Ratio Procalcitonin Ur L.pneumophila Ag 02/28/18 02/28/18 02/28/18 06:45 06:45 12:05 WBC 6.9 RBC 2.66 L Hgb 7.9 L 8.5 L Hct 24.7 L 26.4 L MCV 99.2 MCH 32.0 MCHC 32.2 RDW 19.6 H Plt Count 134 MPV 11.5 H Gran % 75.5 H Lymph % (Auto) 17.2 L [place] % (Auto) 7.2 H Eos % (Auto) 0.0 L Baso % (Auto) 0.1 Gran # 5.17 Lymph # (Auto) 1.2 [place] # (Auto) 0.5 Eos # (Auto) 0.0 Baso # (Auto) 0.01 Haptoglobin Sodium 143 Potassium 3.8 Chloride 97 L Carbon Dioxide 35 H Anion Gap 15 BUN 91 H Creatinine 2.8 H Est GFR ( Amer) 27 Est GFR (Non-Af Amer) 22 Random Glucose 164 H Calcium 8.0 L Total Bilirubin 0.7 Direct Bilirubin AST 16 L D ALT 18 Alkaline Phosphatase 74 Lactate Dehydrogenase Total Protein 6.3 Albumin 3.5 Globulin 2.8 Albumin/Globulin Ratio 1.2 Procalcitonin Ur L.pneumophila Ag Critical Care Progress Note - Nutrition Nutrition: Nutrition Category Date Time Status NPO Diet [DIET] Diets 02/27/18 Breakfast Ordered Addendum Addendum: 02/28/18 13:30 ICU Attending Addendum: Patient seen and examined. Case reviewed on round with housestaff. Agree with resident note above with the following additions/exceptions: Dx: Acute on chronic anemia CKD s/p trach s/p PEG hx of stroke Overnight patient found to have a drop in HB however remained normotensive. Mentation improved today. He is clinically improved however his HB drop is concerning. Unclear source. No sign of bleeding today. I suspect he has a chronic anemia underlying however an acute drop may be from bleeding. F/u HB after transufions. Inform GI regards to bleed. Will cont abx as per ID. Pulm on board. NPO with asp precautions. cont ppI Critical Care time 35 minutes Rest of care as noted above. Dimitry Navarro MD [employer]
--- NOTE | 2018-02-28 13:18 | RAD ---
Date of service: 02/28/2018 HISTORY: infiltrate COMPARISON: Comparison chest dated 02/26/18 FINDINGS: In situ tracheostomy tube in good position unchanged. LUNGS: Poor inspiration with low lung volumes, crowded bronchovascular markings and bibasilar atelectasis right greater than left. PLEURA: No significant pleural effusion identified, no pneumothorax apparent. CARDIOVASCULAR: Heart size unchanged. OSSEOUS STRUCTURES: No significant abnormalities. VISUALIZED UPPER ABDOMEN: Normal. OTHER FINDINGS: None. IMPRESSION: In situ tracheostomy tube as above. Poor inspiration with low lung volumes, crowded bronchovascular markings and mild bibasilar atelectasis right greater than left
--- NOTE | 2018-03-01 | PN ---
Copied To: Tiarra Grier MD Attending MD: Tiarra Grier MD DATE: 02/28/2018 SUBJECTIVE: He is comfortable in bed, in no acute distress. Hemoglobin was 6.6. He received 2 units of blood transfusion overnight. Hemoglobin today is 8.5. He underwent EGD for GI bleed. No source of bleeding was found. He seems comfortable today. 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 at bedside. REVIEW OF SYSTEMS: As per HPI. Rest of 12-point review of systems reviewed negative. PHYSICAL EXAMINATION: GENERAL: Comfortable in bed, in no acute distress. VITAL SIGNS: Temperature 98.4, heart rate 80 per minute, blood pressure 120/60. HEENT: Normal. NECK: No lymphadenopathy. CHEST: Air entry present and equal, bilateral. No added sounds. CARDIOVASCULAR: S1, S2 normal. No murmur. No gallop. ABDOMEN: Soft, nontender. No hepatosplenomegaly. EXTREMITY: No edema. NEUROLOGIC: Nonresponsive, vegetative state. Does not move any limb. MEDICATIONS: Reviewed. LABORATORY DATA: White count 6.9, hemoglobin 8.5, hematocrit 26.4, platelet 134, creatinine 2.8, calcium 8, total bilirubin 0.7. ASSESSMENT: 1. Gastrointestinal bleed. 2. Vegetative state. 3. Severe anemia. PLAN: Status post 2 units of blood transfusion. GI consultation, Dr. Emanuel appreciated. He is at his baseline now. No active bleeding. Discussed with the ICU resident. asking if he can be discharged home. We will continue to monitor hemoglobin and hematocrit closely. Chronic kidney disease, creatinine of 2.8. Tiarra Grier MD
[2018-03-01] MEDS: Albuterol-Ipratrop 3 mg / 0.5 (3 ml) UD IH SCH ×6 (00:10→20:17)
--- NOTE | 2018-03-01 00:18 | PN ---
Copied To: Rose Mary Flor MD Attending MD: Rose Mary Flor MD DATE: 02/28/2018 REFERRING PHYSICIAN: Dr. Renner. SUBJECTIVE: He is lying in the bed, head at 45 degrees, receiving supplemental oxygen through the tracheostomy. Had endoscopy done yesterday. There was no obvious sign of bleed. Has a small amount of trache secretion. No hemoptysis, no hematemesis. No hematuria, no diarrhea. Has some leg swelling. is at bedside. OBJECTIVE: VITAL SIGNS: Temperature is 98, heart rate is 84, respiratory rate is 22, blood pressure 174/85, pulse ox 92% on trache collar. HEENT: Moist mucous membranes. Crowded airway. Mallampati score is 4. Short thick neck. Has a trache #8 cuffless. LUNGS: Has a prolonged expiratory phase with some wheezing and rhonchi. HEART: S1, S2. ABDOMEN: Soft, nontender. No organomegaly. EXTREMITIES: Does have edema of the lower extremity. NEUROLOGIC: He is awake, nonverbal, does not follow commands. MEDICATIONS: He is on Mucomyst 20% inhaled twice a day, doxycycline 100 mg twice a day, DuoNeb every 4 hours, Ferrex 150 mg daily, meropenem 500 mg every 12 hours, Protonix 40 mg daily, Pulmicort inhaled twice a day, IV fluid normal saline 5 mL/hour, Solu-Medrol 40 mg every 8 hours. LABORATORY DATA: Shows hemoglobin 8.5, hematocrit 26.4, WBC 6.9, platelet is 134. Sodium 143, potassium 3.8, chloride 97, bicarbonate 35, BUN 91, creatinine 2.8, glucose 164, calcium 8.0, AST 16, ALT 18, alk phos is 74. Albumin is 3.5. Microbiology: Trach secretion has gram negative rods, and also urine has gram-negative rods. Chest x-ray done this morning shows tracheostomy tube is in the mid-chest, crowded bronchovascular marking and mild basilar atelectasis, right greater than the left, IMPRESSION AND PLAN: Gastrointestinal bleed with anemia, probably some iron-deficiency, hypoxic encephalopathy vegetative state, respiratory failure requiring tracheostomy, feeding difficulty requiring G-tube, renal failure, history of renal stone, gallstone, tracheomalacia, bronchomalacia, anemia. Spoke to the patient's at bedside. All the questions answered. Upper endoscopy is unremarkable for any sign of bleed. We will need colonoscopy in coming days in a week. I believe he got a dose of Aranesp on iron. Bedside tracheostomy changed to #8 cuffless Shiley without any difficulty with help of nurses. Continue gastric prophylaxis. CT to lower extremity. Follow up labs the morning. Aspiration precaution. Critical care time spent, more than 35 minutes. Thank you and we will follow with you. Rose Mary Flor MD
[2018-03-01] MEDS ORDERED: Acetaminophen 650mg/20.3ml solution UD PO STA (03:34)
[2018-03-01 03:57] LABS: GRAN # 4.3 (1.4-6.5); GRAN % 76.7 % (50.0-68.0); HEMOGLOBIN 8.4 g/dL (14.0-18.0); LYMPH % 17.1 % (22.0-35.0); MEAN CELL VOLUME 100.4 fl (80.0-105.0); MEAN CORPUSCULAR HEMOGLOBIN 32.1 pg (25.0-35.0); MEAN CORPUSCULAR HGB CONC 31.9 g/dl (31.0-37.0); MEAN PLATELET VOLUME 10.9 fl (7.0-11.0); MONO # 0.4 (0.1-0.6); MONO % 6.2 % (1.0-6.0); RBC 2.62 10^6/uL (3.5-6.1); RED CELL DISTRIBUTION WIDTH 19.1 % (11.5-14.5); WHITE BLOOD COUNT 5.6 10^3/ul (4.5-11.0)
[2018-03-01] MEDS: Sodium Chloride 0.9% 1,000 ML IV SCH (04:03)
[2018-03-01] MEDS: MethylPREDNISolone 40 mg Vial IVP SCH ×4 (05:44→22:26)
[2018-03-01] MEDS: Acetylcysteine 20% Inhal Soln (4ml) IH SCH ×2 (08:21→20:16)
[2018-03-01] MEDS: Budesonide 0.5 mg/2 ml Inhal Susp UD IH SCH ×3 (08:22→20:18)
[2018-03-01] MEDS: Meropenem 500 MG in Sodium Chloride 0.9% 50 ML IVPB SCH ×2 (09:11→22:25)
[2018-03-01] MEDS ORDERED: MethylPREDNISolone 40 mg Vial IVP SCH (10:00)
--- NOTE | 2018-03-01 10:49 | CP.PCM.PN ---
Subjective - Date & Time of Evaluation Date of Evaluation: 03/01/18 Time of Evaluation: 10:35 - Subjective Subjective: No vomiting, no diarrhea, no fevers overnight, not in distress. Objective - Vital Signs/Intake and Output Vital Signs (last 24 hours): Temp Pulse Resp BP Pulse Ox 98.6 F 76 28 H 160/78 H 98 02/28/18 07:00 02/28/18 11:00 02/28/18 11:00 02/28/18 11:00 02/28/18 11:00 Intake and Output: 02/28/18 02/28/18 06:59 18:59 Intake Total 660 Output Total 1380 Balance -720 - Medications Medications: Current Medications Acetylcysteine (Acetylcysteine 20%) 4 ml IH BIDRESP [facility] Last Admin: 02/28/18 08:07 Dose: 4 ml Albuterol/Ipratropium (Duoneb 3 Mg/0.5 Mg (3 Ml) Ud) 3 ml IH [id number] [facility] Last Admin: 02/28/18 08:07 Dose: 3 ml Budesonide (Pulmicort Respules) 0.5 mg IH [id number] [facility] Last Admin: 02/28/18 08:08 Dose: 0.5 mg Doxycycline Hyclate (Doryx) 100 mg PO Q12 GANGA PRN Reason: Protocol Last Admin: 02/28/18 09:36 Dose: 100 mg Meropenem 500 mg/ Sodium (Chloride) 50 mls @ 100 mls/hr IVPB Q12 GANGA PRN Reason: Protocol Stop: 03/05/18 22:01 Last Admin: 02/28/18 09:45 Dose: 100 mls/hr Sodium Chloride (Sodium Chloride 0.9%) 1,000 mls @ 5 mls/hr IV .Q24H [facility] Last Admin: 02/28/18 06:09 Dose: 5 mls/hr Methylprednisolone (Solu-Medrol) 40 mg IVP Q8 [facility] Last Admin: 02/28/18 06:15 Dose: 40 mg Pantoprazole Sodium (Protonix Inj) 40 mg IVP DAILY [facility] Last Admin: 02/28/18 09:36 Dose: 40 mg Polysaccharide Iron Complex (Ferrex-150) 150 mg PO 1200 [facility] - Labs Labs: 02/28/18 06:45 02/28/18 06:45 PT 12.9 SECONDS (9.4-12.5) H 02/27/18 05:20 INR 1.12 02/27/18 05:20 APTT 28.6 Seconds (25.1-36.5) 02/27/18 05:20 - Constitutional Appears: Chronically Ill - Head Exam Head Exam: NORMAL INSPECTION - Neck Exam Additional comments: tracheostomy tube in place - Respiratory Exam Respiratory Exam: Decreased Breath Sounds - Cardiovascular Exam Cardiovascular Exam: +S1, +S2 - GI/Abdominal Exam GI & Abdominal Exam: Soft. absent: Tenderness Assessment and Plan - Assessment and Plan (Free Text) Plan: Assessment systemic inflammatory response syndrome, R/O sepsis due to UTI, R/O intra- abdominal infection in this patient with rectal bleeding, R/O pneumonia history of MRSA urinary tract infection acute on chronic anemia, for blood transfusion chronic renal failure anoxic encephalopathy S/P tracheostomy and PEG tube placement 4 years ago HTN COPD history of CVA GERD CAD history of C diff infection Plan continue Merrem day 2 pending final sputum cx and urine cx results; blood cx are negative; follow up GI evaluation of rectal bleeding will continue to monitor clinically
--- NOTE | 2018-03-01 11:52 | PN ---
Copied To: Rose Mary Flor MD Attending MD: Rose Mary Flor MD DATE: 03/01/2018 PULMONARY PROGRESS NOTE REFERRING PHYSICIAN: Dr. Renner. SUBJECTIVE: He is lying in the bed, head at 45 degrees, receiving supplemental oxygen through the tracheostomy. is at bedside. Night was unremarkable. Has a small amount of trach secretion. Has abdominal breathing. No melena. No hematochezia. No vomiting. Tolerating feeding well. Trace leg swelling. OBJECTIVE: GENERAL: In no acute distress. VITAL SIGNS: Temperature 98, heart rate is 103, respiratory rate is 18, blood pressure 170/78, pulse ox 97% on trach collar. HEENT: Moist mucous membranes. Crowded airway. Short thick neck. Tracheostoma looks okay. LUNGS: Has a fair airflow with rhonchi. HEART: S1, S2. ABDOMEN: Soft, nontender, nondistended. G-tube area looks okay. EXTREMITIES: Trace edema. NEUROLOGIC: Seems awake, nonverbal, does not follow commands. MEDICATIONS: He is on Mucomyst inhaled twice a day, doxycycline 100 mg twice a day, DuoNeb every 4 hours also every 2 hours p.r.n., Ferrex 150 mg daily, meropenem 500 mg every 12 hours, Norvasc 2.5 mg daily, Protonix 40 mg IV daily, Pulmicort inhaled twice a day, IV fluid normal saline 5 mL/hour, Solu-Medrol 40 mg every 8 hours, Tylenol use on p.r.n. basis. LABORATORY DATA: Shows hemoglobin 8.4, hematocrit 26.3, WBC 5.6, platelet count is 133. Sodium 143 yesterday. Microbiology: Tracheal and urine secretion has gram-negative rods. IMPRESSION AND PLAN: Lower gastrointestinal bleed. Esophagogastroduodenoscopy was unremarkable. Iron deficiency anemia, hypoxic encephalopathy with vegetative state, respiratory failure requiring tracheostomy, feeding difficulty requiring gastrostomy tube, history of renal stone, gallstone, tracheomalacia, bronchomalacia, obesity. I spoke to patient's at bedside. All the questions answered. Pulmonary point of view, doing well. Decrease Solu-Medrol to 40 every 12 hours. Antibiotics as per Infectious Diseases. GI followup. Spoke to Dr. Emanuel yesterday, will need colonoscopy. Follow H and H. Thank you and we will follow with you. Rose Mary Flor MD
[2018-03-01] MEDS: Iron Complex Polysacch 150mg Cap PO SCH (11:54)
[2018-03-01 13:59] LABS: HEMOGLOBIN 8.1 g/dL (14.0-18.0)
[2018-03-01] MEDS: LACOSAMIDE 100 MG PEG SCH ×2 (14:01→21:39)
[2018-03-01] MEDS: levETIRAcetam 500 mg/5ml UD cups PEG SCH ×2 (14:09→21:38)
--- NOTE | 2018-03-01 15:25 | CP.CCUPN ---
Addendum entered and electronically signed by Sheldon Rock DO 15:26: Dispo: Patient is stable for transfer to [facility] given stable hgb Original Note: <Sheldon Rock - Last Filed: 03/01/18 15:02> CCU Subjective - Physician Review Events Since Last Encounter (Free Text): 03/01/18 15:02 Patient seen and examined at bedside. No acute overnight events. Patient denies any complaints, but history limited 2/2 patient's baseline mentation CCU Objective - Vital Signs / Intake & Output Vital Signs (Last 4 hours): Vital Signs Temp Pulse Resp BP Pulse Ox 03/01/18 14:26 81 21 03/01/18 14:25 82 22 03/01/18 14:24 82 21 03/01/18 14:23 82 21 03/01/18 14:22 82 21 03/01/18 14:21 82 22 03/01/18 14:20 82 22 03/01/18 14:19 83 22 03/01/18 14:18 83 21 03/01/18 14:17 84 21 03/01/18 14:11 83 24 03/01/18 14:10 83 22 03/01/18 14:09 82 22 03/01/18 14:08 83 22 03/01/18 14:07 83 21 03/01/18 14:06 83 22 03/01/18 14:05 83 23 03/01/18 14:04 83 22 03/01/18 14:03 83 22 03/01/18 14:02 83 03/01/18 14:01 84 22 03/01/18 14:00 81 166/87 H 03/01/18 13:59 83 21 03/01/18 13:58 83 21 03/01/18 13:57 85 21 03/01/18 13:56 84 23 03/01/18 13:55 83 23 03/01/18 13:54 83 21 03/01/18 13:53 84 21 03/01/18 13:52 84 21 03/01/18 13:51 83 22 03/01/18 13:50 84 22 03/01/18 13:49 83 21 03/01/18 13:48 84 23 03/01/18 13:47 83 22 03/01/18 13:46 84 23 03/01/18 13:45 85 22 03/01/18 13:44 85 22 03/01/18 13:43 85 21 03/01/18 13:29 84 21 03/01/18 13:28 86 21 03/01/18 13:27 87 21 03/01/18 13:26 89 22 03/01/18 13:25 92 H 23 03/01/18 13:24 91 H 25 H 03/01/18 13:00 81 20 169/72 H 97 03/01/18 12:53 84 21 03/01/18 12:52 79 21 03/01/18 12:51 83 20 03/01/18 12:17 86 22 176/77 H 94 L 03/01/18 12:00 83 21 193/78 H 95 03/01/18 11:29 98.1 F Intake and Output (Last 8hrs): Intake & Output 03/01/18 03/01/18 03/01/18 06:59 14:59 22:59 Intake Total 890 Output Total 810 Balance 80 Intake: IV 60 NS 60 Tube Feeding 780 Other 50 Output: Gastric Amount 10 Stomach 10 Urine 800 Urethral (Diaz) 800 - Physical Exam Head: Positive for: Atraumatic Mouth: Positive for: Dry Pharnyx: Negative for: ERYTHEMA Nose (Internal): Positive for: Normal Inspection Neck: Positive for: Normal Range of Motion, Other (tracheostomy site is clean dry and intact). Negative for: Meningeal Signs Respiratory/Chest: Positive for: Wheezes, Tachypneic. Negative for: Respiratory Distress Cardiovascular: Positive for: Murmurs, Tachycardic Abdomen: Positive for: Distention, Feeding Tubes, Other (ecchymosis to right lower abdominal wall, no pulsatile masses). Negative for: Tenderness Rectal: Positive for: Gross Blood. Negative for: Melena Genitourinary Male: Positive for: Other (diaz catheter, no hematuria or lesions ) Lower Extremity: Positive for: Edema Neurological: Positive for: Other (patient with vegetative state) Skin: Positive for: Pale Psychiatric: Negative for: Alert, Normal Insight, Normal Concentration - Medications Active Medications: Active Medications Generic Name Dose Route Start Last Admin Trade Name Freq PRN Reason Stop Dose Admin Acetaminophen 650 mg 03/01/18 04:18 Tylenol 650mg/20.3ml Solution Ud PO Q6H PRN Pain, moderate (4-7) Acetazolamide 250 mg 03/01/18 13:00 03/01/18 14:08 Diamox 250 Mg Tab PEG 250 mg DAILY GANGA Administration Acetylcysteine 4 ml 02/27/18 04:00 03/01/18 08:21 Acetylcysteine 20% IH 4 ml BIDRESP [facility]ANGA Administration Albuterol/Ipratropium 3 ml 02/27/18 17:00 03/01/18 11:32 Duoneb 3 Mg/0.5 Mg (3 Ml) Ud IH 3 ml [id number] [facility]ANGA Administration Albuterol/Ipratropium 3 ml 03/01/18 03:35 Duoneb 3 Mg/0.5 Mg (3 Ml) Ud IH Q2H PRN Shortness of Breath Amlodipine Besylate 2.5 mg 03/01/18 10:00 03/01/18 09:17 Norvasc PEG 2.5 mg DAILY [facility]AN[facility] Administration Budesonide 0.5 mg 02/27/18 03:00 03/01/18 08:22 Pulmicort Respules IH 0.5 mg [id number] [facility]ANGA Administration Doxycycline Hyclate 100 mg 02/27/18 10:00 03/01/18 09:17 Doryx PO 100 mg Q12 [facility]ANGA Administration Protocol Meropenem 500 mg/ Sodium 50 mls @ 100 mls/hr 02/26/18 22:00 03/01/18 09:11 Chloride IVPB 03/05/18 22:01 100 mls/hr Q12 [facility] Administration Protocol Sodium Chloride 1,000 mls @ 5 mls/hr 02/27/18 03:30 03/01/18 04:03 Sodium Chloride 0.9% IV 5 mls/hr .Q24H [facility] Administration Levetiracetam 1,500 mg 03/01/18 22:00 03/01/18 14:09 Keppra PEG 1,500 mg 1000,2200 [facility] Administration Methylprednisolone 40 mg 03/01/18 18:00 Solu-Medrol IVP Q12 [facility] Non-Formulary Medication 100 mg 03/01/18 14:00 03/01/18 14:01 Lacosamide [Vimpat] PEG 100 mg 1000,2200 GANGA Administration Pantoprazole Sodium 40 mg 02/27/18 10:00 03/01/18 09:17 Protonix Inj IVP 40 mg DAILY [facility] Administration Polysaccharide Iron Complex 150 mg 03/01/18 12:00 03/01/18 11:54 Ferrex-150 PO 150 mg 1200 [facility] Administration - Patient Studies Lab Studies: Microbiology Studies 02/27/18 12:20 Gram Stain - Final Trachasp Sputum Culture - Preliminary Gram Negative Saad 02/26/18 21:35 MRSA Culture (Admit) - Final Naris MRSA NOT DETECTED Lab Studies 03/01/18 03/01/18 02/28/18 Range/Units 13:45 03:45 22:05 WBC 5.6 (4.5-11.0) 10^3/ul RBC 2.62 L (3.5-6.1) 10^6/uL Hgb 8.1 L 8.4 L 8.0 L (14.0-18.0) g/dL Hct 25.9 L 26.3 L 24.9 L (42.0-52.0) % MCV 100.4 (80.0-105.0) fl MCH 32.1 (25.0-35.0) pg MCHC 31.9 (31.0-37.0) g/dl RDW 19.1 H (11.5-14.5) % Plt Count 133 (120.0-450.0) 10^3/uL MPV 10.9 (7.0-11.0) fl Gran % 76.7 H (50.0-68.0) % Lymph % (Auto) 17.1 L (22.0-35.0) % Woodson % (Auto) 6.2 H (1.0-6.0) % Eos % (Auto) 0.0 L (1.5-5.0) % Baso % (Auto) 0.0 (0.0-3.0) % Gran # 4.30 (1.4-6.5) Lymph # (Auto) 1.0 L (1.2-3.4) Woodson # (Auto) 0.4 (0.1-0.6) Eos # (Auto) 0.0 (0.0-0.7) Baso # (Auto) 0.00 (0.0-2.0) K/mm3 Laboratory Results - last 24 hr 02/28/18 03/01/1818 22:05 03:45 13:45 WBC 5.6 RBC 2.62 L Hgb 8.0 L 8.4 L 8.1 L Hct 24.9 L 26.3 L 25.9 L MCV 100.4 MCH 32.1 MCHC 31.9 RDW 19.1 H Plt Count 133 MPV 10.9 Gran % 76.7 H Lymph % (Auto) 17.1 L Woodson % (Auto) 6.2 H Eos % (Auto) 0.0 L Baso % (Auto) 0.0 Gran # 4.30 Lymph # (Auto) 1.0 L Woodson # (Auto) 0.4 Eos # (Auto) 0.0 Baso # (Auto) 0.00 Fingerstick Blood Sugar Results: 188 Critical Care Progress Note - Nutrition Nutrition: Nutrition Category Date Time Status NPO Diet [DIET] Diets 02/27/18 Breakfast Ordered Assessment/Plan - Assessment and Plan (Free Text) Assessment: 77 year old male under ICU management for acute hypercapneic respiratory failure 2/2 COPD exacerbation vs sepsis 2/2 UTI/GIB - resolved Hx COPD Hx CVA Hx Chronic Anemia Hx CKD Hx CAD Hx Chronic Diaz, Tracheostomy, PEG Patient's respiratory status is improved and back to baseline per who is patient's primary serger. H/H back to baseline for patient, s/p 2 U PRBC two nights ago. Patient had EGD on 02/27 - Gastritis, Cricopharyngeal stricture, no active bleeding Plan: Neuro: - Maintain normothermia - Restart patient's home seizure medications: Keppra, Acetazolamide, and Vimpat Cardio: - Maintain MAP>65 Lungs: - Maintain SaO2 >90% - Supplementary O2 PRN - Duonebs PRN, pulmicort, solumedrol q8 - Pulm on consult, Dr. Flor -GI: - NPO diet - GI prophylaxis with protonix - GI on consult, Dr Emanuel Renal: - Maintain euvolemia - Avoid nephrotoxic agents, hypochloremia - Replace electrolytes PRN ID: - On merrem day 4, doxycycline day 3 - ID on consult, Dr. Diez Heme: - Monitor CBC given hx of anemia Endo: - Maintain euglycemia <Navarro,Bilal - Last Filed: 03/01/18 17:19> CCU Objective - Vital Signs / Intake & Output Vital Signs (Last 4 hours): Vital Signs Pulse Resp BP 03/01/18 16:11 164/78 H 03/01/18 14:26 81 21 03/01/18 14:25 82 22 03/01/18 14:24 82 21 03/01/18 14:23 82 21 03/01/18 14:22 82 21 03/01/18 14:21 82 22 03/01/18 14:20 82 22 03/01/18 14:19 83 22 03/01/18 14:18 83 21 03/01/18 14:17 84 21 03/01/18 14:11 83 24 03/01/18 14:10 83 22 03/01/18 14:09 82 22 03/01/18 14:08 83 22 03/01/18 14:07 83 21 03/01/18 14:06 83 22 03/01/18 14:05 83 23 03/01/18 14:04 83 22 03/01/18 14:03 83 22 03/01/18 14:02 83 21 03/01/18 14:01 84 22 03/01/18 14:00 81 166/87 H 03/01/18 13:59 83 21 03/01/18 13:58 83 21 03/01/18 13:57 85 21 03/01/18 13:56 84 23 03/01/18 13:55 83 23 03/01/18 13:54 83 21 03/01/18 13:53 84 21 03/01/18 13:52 84 21 03/01/18 13:51 83 22 03/01/18 13:50 84 22 03/01/18 13:49 83 21 03/01/18 13:48 84 23 03/01/18 13:47 83 22 03/01/18 13:46 84 23 03/01/18 13:45 85 22 03/01/18 13:44 85 22 03/01/18 13:43 85 21 03/01/18 13:29 84 21 03/01/18 13:28 86 21 03/01/18 13:27 87 21 03/01/18 13:26 89 22 03/01/18 13:25 92 H 23 03/01/18 13:24 91 H 25 H Intake and Output (Last 8hrs): Intake & Output 03/01/18 03/01/18 03/01/18 06:59 14:59 22:59 Intake Total 890 Output Total 810 Balance 80 Intake: IV 60 NS 60 Tube Feeding 780 Other 50 Output: Gastric Amount 10 Stomach 10 Urine 800 Urethral (Diaz) 800 - Medications Active Medications: Active Medications Generic Name Dose Route Start Last Admin Trade Name Freq PRN Reason Stop Dose Admin Acetaminophen 650 mg 03/01/18 04:18 03/01/18 16:10 Tylenol 650mg/20.3ml Solution Ud PO 650 mg Q6H PRN Administration Pain, moderate (4-7) Acetazolamide 250 mg 03/01/18 13:00 03/01/18 14:08 Diamox 250 Mg Tab PEG 250 mg DAILY GANGA Administration Acetylcysteine 4 ml 02/27/18 04:00 03/01/18 08:21 Acetylcysteine 20% IH 4 ml BIDRESP [facility]ANGA Administration Albuterol/Ipratropium 3 ml 02/27/18 17:00 03/01/18 15:24 Duoneb 3 Mg/0.5 Mg (3 Ml) Ud IH 3 ml [id number] GANGA Administration Albuterol/Ipratropium 3 ml 03/01/18 03:35 Duoneb 3 Mg/0.5 Mg (3 Ml) Ud IH Q2H PRN Shortness of Breath Amlodipine Besylate 2.5 mg 03/01/18 10:00 03/01/18 09:17 Norvasc PEG 2.5 mg DAILY GANGA Administration Budesonide 0.5 mg 02/27/18 03:00 03/01/18 08:22 Pulmicort Respules IH 0.5 mg [id number] GANGA Administration Doxycycline Hyclate 100 mg 02/27/18 10:00 03/01/18 09:17 Doryx PO 100 mg Q12 GANGA Administration Protocol Meropenem 500 mg/ Sodium 50 mls @ 100 mls/hr 02/26/18 22:00 03/01/18 09:11 Chloride IVPB 03/05/18 22:01 100 mls/hr Q12 GANGA Administration Protocol Sodium Chloride 1,000 mls @ 5 mls/hr 02/27/18 03:30 03/01/18 04:03 Sodium Chloride 0.9% IV 5 mls/hr .Q24H [facility] Administration Levetiracetam 1,500 mg 03/01/18 22:00 03/01/18 14:09 Keppra PEG 1,500 mg 1000,2200 GANGA Administration Methylprednisolone 40 mg 03/01/18 18:00 03/01/18 16:18 Solu-Medrol IVP 40 mg Q12 GANGA Administration Non-Formulary Medication 100 mg 03/01/18 14:00 03/01/18 14:01 Lacosamide [Vimpat] PEG 100 mg 1000,2200 GANGA Administration Pantoprazole Sodium 40 mg 02/27/18 10:00 03/01/18 09:17 Protonix Inj IVP 40 mg DAILY GANGA Administration Polysaccharide Iron Complex 150 mg 03/01/18 12:00 03/01/18 11:54 Ferrex-150 PO 150 mg 1200 GANGA Administration - Patient Studies Lab Studies: Microbiology Studies 02/27/18 12:20 Gram Stain - Final Trachasp Sputum Culture - Preliminary Gram Negative Saad Gram Negative Saad#2 02/26/18 21:35 MRSA Culture (Admit) - Final Naris MRSA NOT DETECTED Lab Studies 03/01/18 03/01/18 02/28/18 Range/Units 13:45 03:45 22:05 WBC 5.6 (4.5-11.0) 10^3/ul RBC 2.62 L (3.5-6.1) 10^6/uL Hgb 8.1 L 8.4 L 8.0 L (14.0-18.0) g/dL Hct 25.9 L 26.3 L 24.9 L (42.0-52.0) % MCV 100.4 (80.0-105.0) fl MCH 32.1 (25.0-35.0) pg MCHC 31.9 (31.0-37.0) g/dl RDW 19.1 H (11.5-14.5) % Plt Count 133 (120.0-450.0) 10^3/uL MPV 10.9 (7.0-11.0) fl Gran % 76.7 H (50.0-68.0) % Lymph % (Auto) 17.1 L (22.0-35.0) % Woodson % (Auto) 6.2 H (1.0-6.0) % Eos % (Auto) 0.0 L (1.5-5.0) % Baso % (Auto) 0.0 (0.0-3.0) % Gran # 4.30 (1.4-6.5) Lymph # (Auto) 1.0 L (1.2-3.4) Woodson # (Auto) 0.4 (0.1-0.6) Eos # (Auto) 0.0 (0.0-0.7) Baso # (Auto) 0.00 (0.0-2.0) K/mm3 Laboratory Results - last 24 hr 02/28/18 03/01/18 03/01/18 22:05 03:45 13:45 WBC 5.6 RBC 2.62 L Hgb 8.0 L 8.4 L 8.1 L Hct 24.9 L 26.3 L 25.9 L MCV 100.4 MCH 32.1 MCHC 31.9 RDW 19.1 H Plt Count 133 MPV 10.9 Gran % 76.7 H Lymph % (Auto) 17.1 L Woodson % (Auto) 6.2 H Eos % (Auto) 0.0 L Baso % (Auto) 0.0 Gran # 4.30 Lymph # (Auto) 1.0 L Woodson # (Auto) 0.4 Eos # (Auto) 0.0 Baso # (Auto) 0.00 Critical Care Progress Note - Nutrition Nutrition: Nutrition Category Date Time Status NPO Diet [DIET] Diets 02/27/18 Breakfast Ordered Addendum Addendum: 03/01/18 17:19 ICU Attending Addendum: Patient seen and examined. Case reviewed on round with housestaff. Agree with resident note above with the following additions/exceptions: Dx: Acute on chronic anemia CKD s/p trach s/p PEG hx of stroke Overnight no events. HB stable today after transfusion. Pt remains hemodynamically stable and no longer requires intensive care. F/u GI rec. Will cont abx as per ID. Pulm on board. NPO with asp precautions. cont ppI Rest of care as noted above. Dimitry Navarro MD Tipple Operator
[2018-03-01] MEDS: Acetaminophen 650mg/20.3ml solution UD PO PRN (16:10)
[2018-03-01] MEDS ORDERED: Acetylcysteine 20% Inhal Soln (4ml) IH STA (16:38)
[2018-03-01] MEDS ORDERED: levETIRAcetam 500 mg/5ml UD cups PEG SCH (18:00)
[2018-03-01] MEDS ORDERED: LACOSAMIDE 100 MG PEG SCH (18:00)
[2018-03-01] MEDS ORDERED: Morphine 2 mg/ml ISec IVP ONE (18:23)
[2018-03-01 22:39] LABS: HEMOGLOBIN 7.7 g/dL (14.0-18.0)
--- NOTE | 2018-03-01 23:01 | PN ---
Copied To: Tiarra Grier MD Attending MD: Tiarra Grier MD DATE: 03/01/2018 SUBJECTIVE: He is comfortable, in no acute distress. No recent melena or bright red blood per rectum. EGD did not show any source of blood. He is status post CVA six years ago. Also has UTI. Currently on IV antibiotics. PHYSICAL EXAMINATION: GENERAL: Comfortable in bed, in no acute distress. VITAL SIGNS: Temperature 98.8, heart rate is 80 per minute, blood pressure 120/60, respiratory rate 18 per minute. HEENT: Normal. NECK: No lymphadenopathy, trach present. CHEST: Air entry present, equal bilaterally. No added sounds. CARDIOVASCULAR: S1, S2 normal. No murmur. No gallop. ABDOMEN: Soft, nontender. No hepatosplenomegaly. EXTREMITIES: No edema. NEUROLOGIC: Nonresponsive, vegetative state. LABORATORY DATA: Reviewed. MEDICATIONS: Reviewed. ASSESSMENT: 1. Urosepsis. 2. Severe anemia. 3. Gastrointestinal bleed. 4. Vegetative state. PLAN: Urine culture showed pseudomonas, currently on IV antibiotics as per ID, on meropenem and doxycycline. We will continue IV fluid, on ferrous sulfate daily, Protonix 40 mg IV daily, continue that. Solu-Medrol 40 mg IV every 12. Keppra 1500 mg three times a day, Klonopin 0.5 mg at bedtime, Norvasc 2.5 mg via the PEG tube. Tiarra Grier MD
[2018-03-02] MEDS: Albuterol-Ipratrop 3 mg / 0.5 (3 ml) UD IH SCH ×5 (00:09→17:07)
[2018-03-02] MEDS: Acetaminophen 650mg/20.3ml solution UD PO PRN (01:51)
[2018-03-02] MEDS: Sodium Chloride 0.9% 1,000 ML IV SCH (04:01)
[2018-03-02] MEDS: Acetylcysteine 20% Inhal Soln (4ml) IH SCH (07:30)
[2018-03-02] MEDS: Budesonide 0.5 mg/2 ml Inhal Susp UD IH SCH ×2 (07:31→20:15)
[2018-03-02] MEDS: LACOSAMIDE 100 MG PEG SCH ×2 (09:51→21:56)
[2018-03-02] MEDS: levETIRAcetam 500 mg/5ml UD cups PEG SCH ×2 (09:55→21:55)
[2018-03-02] MEDS: MethylPREDNISolone 40 mg Vial IVP SCH ×2 (09:56→21:55)
--- NOTE | 2018-03-02 10:37 | RAD ---
Date of service: 03/02/2018 HISTORY: follow up COMPARISON: 02/28/2018. FINDINGS: LUNGS: No active pulmonary disease. PLEURA: No significant pleural effusion identified, no pneumothorax apparent. CARDIOVASCULAR: No radiographic findings to suggest acute or significant cardiovascular disease. OSSEOUS STRUCTURES: No significant abnormalities. VISUALIZED UPPER ABDOMEN: Normal. OTHER FINDINGS: Stable, satisfactory position of tracheostomy device. IMPRESSION: No active disease. No significant interval change compared to the prior examination(s).
--- NOTE | 2018-03-02 11:37 | CP.PCM.PN ---
Subjective - Date & Time of Evaluation Date of Evaluation: 03/02/18 Time of Evaluation: 09:00 - Subjective Subjective: S&E at bedside, chart reviewed, at bedside, no acute overnight events as per nursing. As per no recent BM, no reports of overt GI bleeding. Tolerating PEG feedings, no residual reported. Patient is on trache collar, no resp distress. Nonverbal , awake. Objective - Vital Signs/Intake and Output Vital Signs (last 24 hours): Temp Pulse Resp BP Pulse Ox 98.1 F 73 17 149/73 100 03/02/18 04:00 03/02/18 05:35 03/02/18 03:00 03/02/18 09:55 03/02/18 03:00 Intake and Output: 03/02/18 03/02/18 06:59 18:59 Intake Total 950 Output Total 800 Balance 150 - Medications Medications: Current Medications Acetaminophen (Tylenol 650mg/20.3ml Solution Ud) 650 mg PO Q6H PRN PRN Reason: Pain, moderate (4-7) Last Admin: 03/02/18 01:51 Dose: 650 mg Acetazolamide (Diamox 250 Mg Tab) 250 mg PEG DAILY [facility] Last Admin: 03/02/18 09:58 Dose: 250 mg Acetylcysteine (Acetylcysteine 20%) 4 ml IH BIDRESP [facility] Last Admin: 03/02/18 07:30 Dose: 4 ml Albuterol/Ipratropium (Duoneb 3 Mg/0.5 Mg (3 Ml) Ud) 3 ml IH [id number] [facility] Last Admin: 03/02/18 07:30 Dose: 3 ml Albuterol/Ipratropium (Duoneb 3 Mg/0.5 Mg (3 Ml) Ud) 3 ml IH Q2H PRN PRN Reason: Shortness of Breath Amlodipine Besylate (Norvasc) 2.5 mg PEG DAILY [facility] Last Admin: 03/02/18 09:55 Dose: 2.5 mg Budesonide (Pulmicort Respules) 0.5 mg IH [id number] [facility] Last Admin: 03/02/18 07:31 Dose: 0.5 mg Clonazepam (Klonopin) 0.5 mg PO HS [facility] PRN Reason: Protocol Last Admin: 03/01/18 21:38 Dose: 0.5 mg Doxycycline Hyclate (Doryx) 100 mg PO Q12 [facility] PRN Reason: Protocol Last Admin: 03/02/18 09:55 Dose: 100 mg Sodium Chloride (Sodium Chloride 0.9%) 1,000 mls @ 5 mls/hr IV .Q24H [facility] Last Admin: 03/02/18 04:01 Dose: 5 mls/hr Levetiracetam (Keppra) 1,500 mg PEG 1000,2200 [facility] Last Admin: 03/02/18 09:55 Dose: 1,500 mg Methylprednisolone (Solu-Medrol) 40 mg IVP Q12 [facility] Last Admin: 03/02/18 09:56 Dose: 40 mg Non-Formulary Medication (Lacosamide [Vimpat]) 100 mg PEG 1000,2200 [facility] Last Admin: 03/02/18 09:51 Dose: 100 mg Pantoprazole Sodium (Protonix Inj) 40 mg IVP DAILY [facility] Last Admin: 03/02/18 09:55 Dose: 40 mg Polysaccharide Iron Complex (Ferrex-150) 150 mg PO 1200 [facility] Last Admin: 03/01/18 11:54 Dose: 150 mg - Labs Labs: 03/01/18 22:00 02/28/18 06:45 PT 12.9 SECONDS (9.4-12.5) H 02/27/18 05:20 INR 1.12 02/27/18 05:20 APTT 28.6 Seconds (25.1-36.5) 02/27/18 05:20 - Constitutional Appears: No Acute Distress - Eye Exam Eye Exam: Normal appearance. absent: Scleral icterus - ENT Exam ENT Exam: Mucous Membranes Moist - Neck Exam Additional comments: trach present , site intact. - Respiratory Exam Respiratory Exam: Rhonchi, NORMAL BREATHING PATTERN. absent: Respiratory Distress - Cardiovascular Exam Cardiovascular Exam: +S1, +S2 - GI/Abdominal Exam GI & Abdominal Exam: Soft, Normal Bowel Sounds. absent: Guarding, Tenderness, Rebound Additional comments: (+) PEG, site dry and intact, no erythema or discharge - Extremities Exam Extremities Exam: absent: Calf Tenderness - Neurological Exam Neurological Exam: Awake - Skin Skin Exam: Dry, Warm Assessment and Plan - Assessment and Plan (Free Text) Assessment: Assessment: This is a 77yM presenting with SOB and rectal bleeding. s/p EGD 02/27/18: no signs of acute bleeding or source of bleeding 1. Melena 2. Anemia 3. SIRS 4. s/p PEG 5. s/p Trache 6. Anoxic brain injury Plan: continue PEG feedings on Glucerna 45 cc/hr monitor H/H, and overt GIB continue PPI give Dulcolax suppository, no recent BM continue supportive care No plans for further GI workup, Dr. Delgado discussed with patient at the bedside. Case discussed w/ Dr. Delgado covering Dr. Emanuel.
--- NOTE | 2018-03-02 11:40 | CP.PCM.PN ---
Subjective - Date & Time of Evaluation Date of Evaluation: 03/02/18 Time of Evaluation: 11:05 - Subjective Subjective: Not in distress, no fevers, no diarrhea but constipated. Objective - Vital Signs/Intake and Output Vital Signs (last 24 hours): Temp Pulse Resp BP Pulse Ox 98.4 F 83 21 181/85 H 98 03/01/18 04:00 03/01/18 10:00 03/01/18 10:00 03/01/18 10:00 03/01/18 10:00 Intake and Output: 03/01/18 03/01/18 06:59 18:59 Intake Total 890 Output Total 810 Balance 80 - Medications Medications: Current Medications Acetaminophen (Tylenol 650mg/20.3ml Solution Ud) 650 mg PO Q6H PRN PRN Reason: Pain, moderate (4-7) Acetylcysteine (Acetylcysteine 20%) 4 ml IH BIDRESP [facility] Last Admin: 03/01/18 08:21 Dose: 4 ml Albuterol/Ipratropium (Duoneb 3 Mg/0.5 Mg (3 Ml) Ud) 3 ml IH [id number] [facility] Last Admin: 03/01/18 08:21 Dose: 3 ml Albuterol/Ipratropium (Duoneb 3 Mg/0.5 Mg (3 Ml) Ud) 3 ml IH Q2H PRN PRN Reason: Shortness of Breath Amlodipine Besylate (Norvasc) 2.5 mg PEG DAILY [facility] Last Admin: 03/01/18 09:17 Dose: 2.5 mg Budesonide (Pulmicort Respules) 0.5 mg IH [id number] [facility] Last Admin: 03/01/18 08:22 Dose: 0.5 mg Doxycycline Hyclate (Doryx) 100 mg PO Q12 [facility] PRN Reason: Protocol Last Admin: 03/01/18 09:17 Dose: 100 mg Meropenem 500 mg/ Sodium (Chloride) 50 mls @ 100 mls/hr IVPB Q12 [facility] PRN Reason: Protocol Stop: 03/05/18 22:01 Last Admin: 03/01/18 09:11 Dose: 100 mls/hr Sodium Chloride (Sodium Chloride 0.9%) 1,000 mls @ 5 mls/hr IV .Q24H [facility] Last Admin: 03/01/18 04:03 Dose: 5 mls/hr Methylprednisolone (Solu-Medrol) 40 mg IVP Q12 [facility] Pantoprazole Sodium (Protonix Inj) 40 mg IVP DAILY [facility] Last Admin: 03/01/18 09:17 Dose: 40 mg Polysaccharide Iron Complex (Ferrex-150) 150 mg PO 1200 [facility] - Labs Labs: 03/01/18 03:45 02/28/18 06:45 PT 12.9 SECONDS (9.4-12.5) H 02/27/18 05:20 INR 1.12 02/27/18 05:20 APTT 28.6 Seconds (25.1-36.5) 02/27/18 05:20 - Constitutional Appears: Chronically Ill - Head Exam Head Exam: NORMAL INSPECTION - ENT Exam ENT Exam: Mucous Membranes Moist - Neck Exam Neck Exam: absent: Meningismus Additional comments: tracheostomy tube in place - Respiratory Exam Respiratory Exam: Decreased Breath Sounds - Cardiovascular Exam Cardiovascular Exam: +S1, +S2 - GI/Abdominal Exam GI & Abdominal Exam: Soft. absent: Tenderness Assessment and Plan - Assessment and Plan (Free Text) Plan: Assessment consider sepsis due to healthcare-associated pneumonia with Klebsiella and Pseudomonas, R/O complicated UTI with Pseudomonas history of MRSA urinary tract infection acute on chronic anemia, for blood transfusion chronic renal failure anoxic encephalopathy S/P tracheostomy and PEG tube placement 4 years ago HTN COPD history of CVA GERD CAD history of C diff infection Plan continue Merrem day 3 and target at least 7 days of antibiotics follow up further GI evaluation of rectal bleeding will continue to monitor clinically
[2018-03-02] MEDS: Iron Complex Polysacch 150mg Cap PO SCH (13:26)
[2018-03-02] MEDS: POLYETHYLENE GLYCOL 3350 17 GM/Dose PACKET PO SCH ×2 (13:26→17:37)
[2018-03-02] MEDS ORDERED: Arformoterol 15 mcg/2 ml Inh Sol IH SCH (20:00)
[2018-03-02] MEDS: Albuterol-Ipratrop 3 mg / 0.5 (3 ml) UD IH PRN (20:15)
[2018-03-03] MEDS: Albuterol-Ipratrop 3 mg / 0.5 (3 ml) UD IH PRN ×4 (00:42→13:01)
[2018-03-03] MEDS: Acetaminophen 650mg/20.3ml solution UD PO PRN (03:14)
--- NOTE | 2018-03-03 08:05 | PN ---
Copied To: Rose Mary Flor MD Attending MD: Rose Mary Flor MD DATE: 03/02/2018 PULMONARY PROGRESS NOTE REFERRING PHYSICIAN: Dr. Renner. SUBJECTIVE: He is lying in the bed, head at 45 degrees. is at bedside. Night was unremarkable. Feels better than yesterday today; still tachypneic though. No hemoptysis or emesis. No hematuria. Had a bowel movement. No fresh blood. Trace leg swelling. OBJECTIVE: GENERAL: In no acute distress. VITAL SIGNS: Temperature is 98, heart rate 73, respiratory rate is 20, blood pressure 136/64, pulse ox 98% on tracheal collar. HEENT: Moist mucous membrane. Crowded airway. Tracheostomy looks okay. LUNGS: Fair airflow with rhonchi. HEART: S1 and S2. ABDOMEN: Obese, soft. G-tube area looks okay. EXTREMITIES: Trace edema. NEUROLOGIC: Seems awake, nonverbal, does not follow commands. MEDICATIONS: He is on Mucomyst inhaled twice a day, Diamox 250 mg G-tube daily, doxycycline 100 mg twice a day, albuterol/Atrovent nebulizer every 4 hours, also DuoNeb every 2 hours, Ferrex 150 mg daily, Keppra 1500 mg twice a day, clonazepam 0.5 mg at bedtime, Vimpat 100 mg twice a day, MiraLax 17 g twice a day, Norvasc 2.5 mg daily, Protonix 40 mg daily, Pulmicort inhaled twice a day, Solu-Medrol 40 mg twice a day, Tylenol p.r.n. basis. LABORATORY DATA: Shows blood sugar this morning 171. His proBNP is 1900. Trach has Klebsiella pneumonia and Pseudomonas. Urine has Pseudomonas. Chest x-ray done this morning is unremarkable. IMPRESSION AND PLAN: Status post lower gastrointestinal bleed, anemia, status post esophagogastroduodenoscopy, iron-deficiency anemia, hypoxic encephalopathy, respiratory failure requiring trach, heart failure, renal insufficiency, history of gallstone, tracheomalacia, and also has a history of seizure disorder. Pulmonary point of view, doing well. Agree restarting Demadex and Lasix. Watch kidney function closely. Continue supplemental oxygen through the tracheostomy. Antibiotics as per Infectious Disease. Decrease Solu-Medrol to 20 every 12 hours. GI followup. care home may benefit just from bone marrow stimulant with iron, B12, and folate supplements. Thank you and we will follow with you. Rose Mary Flor MD
--- NOTE | 2018-03-03 08:07 | PN ---
Copied To: Bridger Renner MD Attending MD: Bridger Renner MD DATE: 03/02/2018 SUBJECTIVE: The patient has no complaints of any headache. Patient is not able to communicate. PHYSICAL EXAMINATION: VITAL SIGNS: Temperature is 98.8, pulse is 77, blood pressure is 136/64, respirations 21. GENERAL: The patient is lying in bed, flat, comfortable. HEENT: No oral lesion. Anicteric sclerae. Moist mucosa. NECK: No JVD, adenopathy, or thyromegaly. Positive trach. CARDIOVASCULAR: S1 and S2, regular. No murmurs, rubs or gallops. LUNGS: Clear to auscultation bilaterally. No wheeze, rales or rhonchi. ABDOMEN: Bowel sounds are positive, soft, nontender and nondistended. Positive PEG. EXTREMITIES: No cyanosis, clubbing or edema. LABORATORY DATA: Creatinine is 2.8. ASSESSMENT: 1. Acute anemia secondary to blood loss. 2. Respiratory failure, status post chronic tracheostomy. 3. Anoxic encephalopathy. 4. Chronic obstructive pulmonary disease. 5. Gastroesophageal reflux disease. 6. Coronary artery disease. 7. Iron deficiency anemia. 8. Bilateral renal cysts. 9. Cholelithiasis. 10. Splenomegaly. 11. Nephrolithiasis. 12. Percutaneous endoscopic gastrostomy. PLAN: The patient's hemoglobin is low at 7.7. The patient is transfused. I will repeat the patient's blood work. The patient is awaiting for colonoscopy by GI. The patient is on doxycycline for antibiotics. He is on albuterol. I did speak to the patient's at the bedside. Patient is on amlodipine for hypertension. The patient is on steroids. Bridger Renner MD
[2018-03-03 08:11] VITALS: BP 136/65; RESP 21; TEMP 97.8; O2SAT 97
--- NOTE | 2018-03-03 08:25 | PN ---
Copied To: Hai Delgado MD Attending MD: Hai Delgado MD ADDENDUM DATE: 03/02/2018 I have personally examined this patient. I agree with Kailee Santos APN's assessment and recommendations. This patient has anoxic encephalopathy and has been anemic for years. He had a recent endoscopy which did not show any evidence of bleeding. He has multiple comorbidities including renal insufficiency. His BUN and creatinine are elevated. There has been no evidence of any rectal bleeding. Given the patient's poor overall prognosis as the patient is unresponsive and has anoxic brain injury, I do not recommend the patient having a colonoscopy at this time. I have discussed this with the patient's who is agreeable. Plans are for continued supportive care. No further GI workup is planned at this time. Hai Delgado MD
[2018-03-03] MEDS: Acetylcysteine 20% Inhal Soln (4ml) IH SCH (08:30)
[2018-03-03] MEDS: Budesonide 0.5 mg/2 ml Inhal Susp UD IH SCH (08:30)
[2018-03-03 09:02] LABS: HEMOGLOBIN 10.3 g/dL (14.0-18.0); MEAN CELL VOLUME 100.6 fl (80.0-105.0); MEAN CORPUSCULAR HEMOGLOBIN 31.1 pg (25.0-35.0); MEAN CORPUSCULAR HGB CONC 30.9 g/dl (31.0-37.0); MEAN PLATELET VOLUME 11.5 fl (7.0-11.0); RBC 3.31 10^6/uL (3.5-6.1); RED CELL DISTRIBUTION WIDTH 20.3 % (11.5-14.5); WHITE BLOOD COUNT 6.5 10^3/ul (4.5-11.0)
[2018-03-03] MEDS: levETIRAcetam 500 mg/5ml UD cups PEG SCH (10:38)
[2018-03-03] MEDS: POLYETHYLENE GLYCOL 3350 17 GM/Dose PACKET PO SCH (10:40)
[2018-03-03] MEDS: MethylPREDNISolone 40 mg Vial IVP SCH (10:40)
[2018-03-03] MEDS: LACOSAMIDE 100 MG PEG SCH (10:40)
[2018-03-03 11:34] LABS: ALB/GLOB RATIO 1.6 (1.1-1.8); ALBUMIN 3.9 g/dL (3.0-4.8); CALCIUM 8.5 mg/dL (8.4-10.5)
[2018-03-03] MEDS: Iron Complex Polysacch 150mg Cap PO SCH (11:34)
--- NOTE | 2018-03-03 11:38 | CP.PCM.PN ---
Subjective - Date & Time of Evaluation Date of Evaluation: 03/03/18 Time of Evaluation: 10:10 - Subjective Subjective: S&E at bedside, chart reviewed, no acute overnight events. at bedside, pt had BM yesterday, no bleeding reported . S/p 2 units of PRBC, hgb 10.3, tolerating PEG feedings. Objective - Vital Signs/Intake and Output Vital Signs (last 24 hours): Temp Pulse Resp BP Pulse Ox 97.8 F 64 21 136/65 97 03/03/18 08:10 03/03/18 08:10 03/03/18 08:10 03/03/18 10:39 03/03/18 08:10 Intake and Output: 03/03/18 03/03/18 06:59 18:59 Intake Total 1665 325 Output Total 700 Balance 965 325 - Medications Medications: Current Medications Acetaminophen (Tylenol 650mg/20.3ml Solution Ud) 650 mg PO Q6H PRN PRN Reason: Pain, moderate (4-7) Last Admin: 03/03/18 03:14 Dose: 650 mg Acetazolamide (Diamox 250 Mg Tab) 250 mg PEG DAILY [facility] Last Admin: 03/03/18 10:42 Dose: 250 mg Acetylcysteine (Acetylcysteine 20%) 4 ml IH BIDRESP [facility] Last Admin: 03/03/18 08:30 Dose: 4 ml Albuterol/Ipratropium (Duoneb 3 Mg/0.5 Mg (3 Ml) Ud) 3 ml IH Q2H PRN PRN Reason: Shortness of Breath Last Admin: 03/03/18 08:30 Dose: 3 ml Amlodipine Besylate (Norvasc) 2.5 mg PEG DAILY [facility] Last Admin: 03/03/18 10:39 Dose: 2.5 mg Arformoterol Tartrate (Brovana) 15 mcg IH [id number] [facility] Last Admin: 03/03/18 08:30 Dose: 15 mcg Budesonide (Pulmicort Respules) 0.5 mg IH [id number] [facility] Last Admin: 03/03/18 08:30 Dose: 0.5 mg Clonazepam (Klonopin) 0.5 mg PO HS [facility] PRN Reason: Protocol Last Admin: 03/02/18 21:55 Dose: 0.5 mg Doxycycline Hyclate (Doryx) 100 mg PO Q12 [facility] PRN Reason: Protocol Last Admin: 03/03/18 10:40 Dose: 100 mg Levetiracetam (Keppra) 1,500 mg PEG 1000,2200 [facility] Last Admin: 03/03/18 10:38 Dose: 1,500 mg Methylprednisolone (Solu-Medrol) 40 mg IVP Q12 [facility] Last Admin: 03/03/18 10:40 Dose: 40 mg Non-Formulary Medication (Lacosamide [Vimpat]) 100 mg PEG 1000,2200 [facility] Last Admin: 03/03/18 10:40 Dose: 100 mg Pantoprazole Sodium (Protonix Inj) 40 mg IVP DAILY [facility] Last Admin: 03/03/18 10:40 Dose: 40 mg Polyethylene Glycol (Miralax) 17 gm PO BID [facility] Last Admin: 03/03/18 10:40 Dose: 17 gm Polysaccharide Iron Complex (Ferrex-150) 150 mg PO 1200 [facility] Last Admin: 03/02/18 13:26 Dose: 150 mg - Labs Labs: 03/03/18 08:40 02/28/18 06:45 PT 12.9 SECONDS (9.4-12.5) H 02/27/18 05:20 INR 1.12 02/27/18 05:20 APTT 28.6 Seconds (25.1-36.5) 02/27/18 05:20 - Constitutional Appears: No Acute Distress - Eye Exam Eye Exam: Normal appearance. absent: Scleral icterus - ENT Exam ENT Exam: Mucous Membranes Moist Additional comments: trach collar - Respiratory Exam Respiratory Exam: Rhonchi, NORMAL BREATHING PATTERN. absent: Respiratory Distress - Cardiovascular Exam Cardiovascular Exam: +S1, +S2 - GI/Abdominal Exam GI & Abdominal Exam: Soft, Normal Bowel Sounds. absent: Guarding, Tenderness, Rebound Additional comments: PEG tube in place dry ad intact - Extremities Exam Extremities Exam: absent: Calf Tenderness, Pedal Edema - Neurological Exam Neurological Exam: Awake - Skin Skin Exam: Dry, Warm Assessment and Plan - Assessment and Plan (Free Text) Assessment: Assessment: This is a 77yM presenting with SOB and rectal bleeding. s/p EGD 02/27/18: no signs of acute bleeding or source of bleeding 1. Melena 2. Anemia, s/p PRBC 3. SIRS 4. s/p PEG 5. s/p Trache 6. Anoxic brain injury Plan: continue PEG feedings on Glucerna 45 cc/hr monitor H/H, and overt GIB continue PPI continue Miralax BId, hold for BM>2/day on Iron supplements continue supportive care no GI plans for colonoscopy, Dr Delgado discussed w/ patient Case discussed w/ Dr. Delgado covering Dr. Emanuel.
[2018-03-03] MEDS ORDERED: Darbepoetin Alfa 100 mcg/ml Inj SC ONE (12:12)
[2018-03-03 15:00] VITALS: PULSE 65
[2018-03-03] MEDS ORDERED: Meropenem 500 MG in Sodium Chloride 0.9% 50 ML IVPB SCH (15:00)
--- NOTE | 2018-03-03 15:02 | CP.PCM.PN ---
Subjective - Date & Time of Evaluation Date of Evaluation: 03/03/18 Time of Evaluation: 11:00 - Subjective Subjective: No fevers, not in distress, no diarrhea, no more blood in the stool. Objective - Vital Signs/Intake and Output Vital Signs (last 24 hours): Temp Pulse Resp BP Pulse Ox 98.1 F 73 17 149/73 100 03/02/18 04:00 03/02/18 05:35 03/02/18 03:00 03/02/18 09:55 03/02/18 03:00 Intake and Output: 03/02/18 03/02/18 06:59 18:59 Intake Total 950 Output Total 800 Balance 150 - Medications Medications: Current Medications Acetaminophen (Tylenol 650mg/20.3ml Solution Ud) 650 mg PO Q6H PRN PRN Reason: Pain, moderate (4-7) Last Admin: 03/02/18 01:51 Dose: 650 mg Acetazolamide (Diamox 250 Mg Tab) 250 mg PEG DAILY [facility] Last Admin: 03/02/18 09:58 Dose: 250 mg Acetylcysteine (Acetylcysteine 20%) 4 ml IH BIDRESP [facility] Last Admin: 03/02/18 07:30 Dose: 4 ml Albuterol/Ipratropium (Duoneb 3 Mg/0.5 Mg (3 Ml) Ud) 3 ml IH [id number] [facility] Last Admin: 03/02/18 11:08 Dose: 3 ml Albuterol/Ipratropium (Duoneb 3 Mg/0.5 Mg (3 Ml) Ud) 3 ml IH Q2H PRN PRN Reason: Shortness of Breath Amlodipine Besylate (Norvasc) 2.5 mg PEG DAILY [facility] Last Admin: 03/02/18 09:55 Dose: 2.5 mg Budesonide (Pulmicort Respules) 0.5 mg IH [id number] [facility] Last Admin: 03/02/18 07:31 Dose: 0.5 mg Clonazepam (Klonopin) 0.5 mg PO HS [facility] PRN Reason: Protocol Last Admin: 03/01/18 21:38 Dose: 0.5 mg Doxycycline Hyclate (Doryx) 100 mg PO Q12 [facility] PRN Reason: Protocol Last Admin: 03/02/18 09:55 Dose: 100 mg Sodium Chloride (Sodium Chloride 0.9%) 1,000 mls @ 5 mls/hr IV .Q24H [facility] Last Admin: 03/02/18 04:01 Dose: 5 mls/hr Levetiracetam (Keppra) 1,500 mg PEG 1000,2200 [facility] Last Admin: 03/02/18 09:55 Dose: 1,500 mg Methylprednisolone (Solu-Medrol) 40 mg IVP Q12 [facility] Last Admin: 03/02/18 09:56 Dose: 40 mg Non-Formulary Medication (Lacosamide [Vimpat]) 100 mg PEG 1000,2200 [facility] Last Admin: 03/02/18 09:51 Dose: 100 mg Pantoprazole Sodium (Protonix Inj) 40 mg IVP DAILY [facility] Last Admin: 03/02/18 09:55 Dose: 40 mg Polysaccharide Iron Complex (Ferrex-150) 150 mg PO 1200 [facility] Last Admin: 03/01/18 11:54 Dose: 150 mg - Labs Labs: 03/01/18 22:00 02/28/18 06:45 PT 12.9 SECONDS (9.4-12.5) H 02/27/18 05:20 INR 1.12 02/27/18 05:20 APTT 28.6 Seconds (25.1-36.5) 02/27/18 05:20 - Constitutional Appears: Chronically Ill - Head Exam Head Exam: NORMAL INSPECTION - Neck Exam Additional comments: tracheostomy tube in place - Respiratory Exam Respiratory Exam: Decreased Breath Sounds - Cardiovascular Exam Cardiovascular Exam: +S1, +S2 - GI/Abdominal Exam GI & Abdominal Exam: Soft. absent: Tenderness Assessment and Plan - Assessment and Plan (Free Text) Plan: Assessment consider sepsis due to healthcare-associated pneumonia with Klebsiella and Pseudomonas, R/O complicated UTI with Pseudomonas history of MRSA urinary tract infection acute on chronic anemia, for blood transfusion chronic renal failure anoxic encephalopathy S/P tracheostomy and PEG tube placement 4 years ago HTN COPD history of CVA GERD CAD history of C diff infection Plan continue Merrem day 4 and target at least 7 days of antibiotics follow up further GI evaluation of rectal bleeding will continue to monitor clinically
--- NOTE | 2018-03-03 15:58 | PN ---
Copied To: Hai Delgado MD Attending MD: Hai Delgado MD ADDENDUM DATE: 03/03/2018 An addendum to a progress note performed by Kailee Santos APN on Domo Garg. SUBJECTIVE: The patient was seen and examined by me. He is lying in bed. Eyes open. Unresponsive. His hemoglobin is up to 10.3 after blood transfusion. There has been no evidence of any rectal bleeding. There are no plans for any further GI workup at this time given his overall poor condition and poor prognosis. I have discussed this with the the patient's who is agreeable. Hai Delgado MD
--- NOTE | 2018-03-03 18:36 | PN ---
Copied To: Rose Mary Flor MD Attending MD: Rose Mary Flor MD DATE: 03/03/2018 PULMONARY PROGRESS NOTE REFERRING PHYSICIAN: Bridger Renner MD SUBJECTIVE: He is lying in the bed, head at 45 degrees. No acute distress. Has a small amount of secretion getting supplemental oxygen through the tracheostomy. No vomiting. No hematuria. No diarrhea. No leg swelling reported. is at bedside. OBJECTIVE: GENERAL: In no acute distress. VITAL SIGNS: Temperature is 98, heart rate 65, respiratory rate is 20, blood pressure 136/65, pulse ox 97% on room air. HEENT: Moist mucous membrane. Crowded airway. NECK: Supple. No JVD. Tracheostomy looks okay. LUNGS: Have a fair airflow with rhonchi. HEART: S1 and S2. ABDOMEN: Soft, nontender, nondistended. G-tube area looks okay. EXTREMITIES: Trace edema. NEUROLOGICAL: Awake and nonverbal. Does not follow command. MEDICATIONS: He is on Mucomyst inhaled every 12 hours, Brovana inhaled twice a day, Diamox 250 mg daily, DuoNeb every 2 hours p.r.n., Ferrex 150 mg daily, Keppra 1.5 g via G-tube twice a day, Klonopin 0.5 mg at bedtime, Vimpat 100 mg twice a day, MiraLax 17 g twice a day, Norvasc 2.5 mg daily, Protonix 40 mg daily, Pulmicort inhaled twice a day, Solu-Medrol 40 mg every 12 hours, Tylenol p.r.n. basis. LABORATORY DATA: Shows hemoglobin 10.3, hematocrit 33.3, WBC 6.5, platelet is 144. Sodium 153, potassium 4.4, chloride 104, bicarbonate 37, BUN 89, creatinine 2.2, glucose 125, calcium is 8.5, total bili 0.8, AST is 37, ALT 53, alk phos is 64. Albumin is 3.9. IMPRESSION AND PLAN: Status post lower gastrointestinal bleed with anemia and gastroesophageal reflux disease, status post esophagogastroduodenoscopy, which was unremarkable, iron-deficiency anemia, hypoxic encephalopathy, respiratory failure requiring tracheostomy, heart failure, renal insufficiency, gallstone, history of tracheomalacia, obesity, seizure disorder. Spoke to the patient's at bedside. All the questions answered. Continue bronchodilator. Keep head at 45 degrees. May continue bone marrow stimulant, supplemental iron. Follow up CBC. Thank you and we will follow with you. Rose Mary Flor MD : 03/03/2018 16:40:03
--- NOTE | 2018-03-04 09:18 | DS ---
Copied To: Bridger Renner MD Attending MD: Bridger Renner MD HISTORY OF PRESENT ILLNESS: The patient is a 77-year-old male who has anoxic encephalopathy. The patient had acute anemia and had required transfusion. The patient is currently comfortable. He is going to be discharged home today. His B12 levels were normal. His iron saturation was mildly low and he was given IV iron prior to being discharged. He did not require B12 injections. The patient is on home iron. He gets frequent blood works. The family has ____ for taking care of this patient. He has been out of the hospital since 07/2016. He was given Aranesp prior to discharge. I will increase the Procrit to twice a week. PHYSICAL EXAMINATION: VITAL SIGNS: Temperature is 97.8, pulse is 64, blood pressure 136/65, respirations 21. GENERAL: The patient is lying in bed, flat, comfortable. HEENT: No oral lesion. Anicteric sclerae. Moist mucosa. NECK: No JVD, adenopathy, or thyromegaly. Positive for trach. CARDIOVASCULAR: S1 and S2, regular. No murmurs, rubs, or gallops. LUNGS: Clear to auscultation bilaterally. No wheeze, rales, or rhonchi. ABDOMEN: Bowel sounds are positive, soft, nontender and nondistended. Positive for PEG. EXTREMITIES: no cyanosis, clubbing or edema. ASSESSMENT: 1. Hematuria, resolved, x1 day. 2. Acute anemia secondary to blood loss. 3. Respiratory failure with tracheostomy, chronic. 4. Anoxic encephalopathy. 5. Chronic obstructive pulmonary disease. 6. Gastroesophageal reflux disease. 7. Coronary artery disease. 8. Iron deficiency anemia. 9. Bilateral renal cysts. 10. Cholelithiasis. 11. Splenomegaly. 12. Nephrolithiasis. 13. Percutaneous endoscopic gastrostomy. PLAN: The patient was given transfusion. He is going to be discharged home. He is on antibiotics. This could be discontinued at this point. The patient has received 4 days of antibiotics. I did speak to the patient's at the bedside to give her an update on the patient's diagnosis and plan of care. The patient has been given Dulcolax for constipation. Bridger Renner MD [facility] # [id number]
== END 2018-03-03 17:37 | disposition home health service (06) | DRG 378 ==
LOC: ED 14:45 → ERH 18:13 → CCU 21:21 → 3RSO 03-02 15:08
PROVIDERS: ADMIT Internal Medicine Nephrology; ATTEND Internal Medicine Nephrology
PROC: 30233N1 Transfusion of Nonautologous Red Blood Cells into Peripheral Vein, Percutaneous Approach (ICD-10-PCS; 2018-02-26)
PROC: 0DJ08ZZ Inspection of Upper Intestinal Tract, Via Natural or Artificial Opening Endoscopic (ICD-10-PCS; principal; 2018-02-27 13:30)
DX: K92.1 Melena (principal); D62 Acute posthemorrhagic anemia; J96.10 Chronic respiratory failure, unspecified whether with hypoxia or hypercapnia; I13.0 Hypertensive heart and chronic kidney disease with heart failure and stage 1 through stage 4 chronic kidney disease, or unspecified chronic kidney disease; G93.1 Anoxic brain damage, not elsewhere classified; R40.3 Persistent vegetative state; N39.0 Urinary tract infection, site not specified; Z68.41 Body mass index [BMI] 40.0-44.9, adult; J44.1 Chronic obstructive pulmonary disease with (acute) exacerbation; I50.9 Heart failure, unspecified; K21.9 Gastro-esophageal reflux disease without esophagitis; I25.10 Atherosclerotic heart disease of native coronary artery without angina pectoris; N28.1 Cyst of kidney, acquired; K80.20 Calculus of gallbladder without cholecystitis without obstruction; R16.1 Splenomegaly, not elsewhere classified; N20.0 Calculus of kidney; K59.00 Constipation, unspecified; D63.1 Anemia in chronic kidney disease; N18.9 Chronic kidney disease, unspecified; D69.6 Thrombocytopenia, unspecified; K29.70 Gastritis, unspecified, without bleeding; R63.3 Feeding difficulties; J39.8 Other specified diseases of upper respiratory tract; E66.9 Obesity, unspecified; B96.5 Pseudomonas (aeruginosa) (mallei) (pseudomallei) as the cause of diseases classified elsewhere; G40.909 Epilepsy, unspecified, not intractable, without status epilepticus; I69.398 Other sequelae of cerebral infarction; Z93.0 Tracheostomy status; Z86.14 Personal history of Methicillin resistant Staphylococcus aureus infection; Z87.891 Personal history of nicotine dependence; Z93.1 Gastrostomy status; Z95.5 Presence of coronary angioplasty implant and graft; Z88.9 Allergy status to unspecified drugs, medicaments and biological substances